=== PATIENT | female | born 1955 | race Caucasian/White ===

== ENCOUNTER 2016-07-26 13:38 | Emergency (ER) | payer MEDICARE, OTHER ==
[~2016-07-26] VITALS: Ht 163.8 cm; Wt 87.7 kg
[2016-07-26] VITALS (7 sets, daily range): BP systolic 120–158; BP diastolic 62–89; PULSE 72–94; RESP 16–20; TEMP 98.6; O2SAT 93–98
[~2016-07-26 13:38] MED LIST: CHOL50006 PO; FOLI400T30 PO; FURO20 PO; IPRAAER NEB; LEVA750T PO; LISI-363 PO; LORA0.5T PO; MIRA33502 PO; MOME17I; NORC10TA2 PO; PRED10PA PO; PRIL40CA PO; PROM25SU8 PO; SYMB80AE INH; Z.0.OXYGEN INH; ZOCO40TA PO
[2016-07-26] MEDS ORDERED: VITA100064 PO (15:46)
[2016-07-26] MEDS ORDERED: PRED10 PO (15:46)
[2016-07-26] MEDS ORDERED: FURO20TA PO (15:46)
[2016-07-26] MEDS ORDERED: SYMB80AE INH (15:46)
[2016-07-26] MEDS ORDERED: ZOCO40TA PO (15:46)
[2016-07-26] MEDS ORDERED: ALBU0.63 NEB (15:46)
[2016-07-26] MEDS ORDERED: LISI10TA3 PO (15:46)
[2016-07-26] MEDS ORDERED: FOLI5CAP PO (15:46)
[2016-07-26] MEDS ORDERED: SODIUM CHLORIDE 0.9% FLUSH 5 ML FLUSH IVF PRN (16:15)
[2016-07-26] MEDS ORDERED: methylPREDNISolone SOD SUCC 125 MG/2 ML VIAL IVP ONE (16:15)
[2016-07-26 16:34] LABS: AUTOMATED NEUTROPHIL # 8.9 TH/MM3 (1.8-7.7); BASOPHIL # 0.1 TH/MM3 (0-0.2); BASOPHIL % 1.4 % (0.0-2.0); EOSINOPHIL % 0.2 % (0.0-4.0); LYMPH % 9.8 % (9.0-44.0); MEAN CELL VOLUME 89.3 FL (80.0-100.0); MEAN CORPUSCULAR HEMOGLOBIN 29.7 PG (27.0-34.0); MEAN CORPUSCULAR HGB CONC 33.3 % (32.0-36.0); MONO % 4.2 % (0.0-8.0); NEUT % 84.4 % (16.0-70.0); PLATELET COUNT 317 TH/MM3 (150-450); RED BLOOD COUNT 4.14 MIL/MM3 (4.00-5.30); RED CELL DISTRIBUTION WIDTH 12.9 % (11.6-17.2); WHITE BLOOD COUNT 10.4 TH/MM3 (4.0-11.0)
[2016-07-26 16:38] LABS: HEMO FLAGS DIFF FINAL
[2016-07-26 16:43] LABS: CHLORIDE 102 MEQ/L (98-107); POTASSIUM 4.2 MEQ/L (3.5-5.1); SODIUM (NA) 141 MEQ/L (136-145)
[2016-07-26 16:47] LABS: ANION GAP 6 MEQ/L (5-15); BICARBONATE 32.9 MEQ/L (21.0-32.0); BLOOD UREA NITROGEN 13 MG/DL (7-18)
[2016-07-26] MEDS: RESP: ALBUTEROL 2.5 MG/IPRATROPIUM 0.5 MG NEB (SCH) INH ×2 (16:47→16:48)
[2016-07-26 16:49] LABS: APTT (PATIENT) 24.7 SEC (24.3-30.1); INTERNATIONAL NORMALIZED RATIO 0.9 RATIO; PROTHROMBIN TIME - PATIENT 9.8 SEC (9.8-11.6)
[2016-07-26 16:50] LABS: ALT (GPT) 25 U/L (10-53); AST (GOT) 14 U/L (15-37); GLOMERULAR FILTRATION RATE 70 ML/MIN (>89)
[2016-07-26 16:52] LABS: TOTAL BILIRUBIN ADULT 0.5 MG/DL (0.2-1.0)
[2016-07-26 16:53] LABS: ALKALINE PHOSPHATASE 63 U/L (45-117)
--- NOTE | 2016-07-26 16:57 | RADHPO ---
EXAM DATE/TIME: 07/26/2016 16:32 [facility] COMPARISON: No previous studies available for comparison. INDICATIONS : Left lower extremity edema. MEDICAL HISTORY : Myocardial infarction. Hypertension. Chronic obstructive pulmonary disease. Migraine. Asthma. Arth ritis. GERD. Gallbladder disease. SURGICAL HISTORY : Carpal tunnel release. Right breast lumpectomy. ENCOUNTER: Initial ACUITY: >1 year PAIN SCORE: 0/10 LOCATION: Left leg. TECHNIQUE: Venous ultrasound of the leg was performed from the inguinal ligament to the proximal calf. Real-eusebia e, color Doppler and spectral tracing, compression and augmentation techniques were used. FINDINGS: There is normal compressibility of the deep venous system from the inguinal region to the proximal ca lf. No echogenic clot is seen in the lumen of the common femoral, femoral, popliteal, and posterior tibial veins. There is a normal response of the venous system to proximal and distal augmentation an d respiration. CONCLUSION: Normal examination. Toby Gomez MD on July 26, 2016 at 16:48 Board Certified Radiologist. This report was verified electronically.
--- NOTE | 2016-07-26 17:38 | RADHPO ---
EXAM DATE/TIME: 07/26/2016 16:18 [facility] COMPARISON: CHEST PA & LAT, April 06, 2016, 15:11. INDICATIONS : Shortness of breath. MEDICAL HISTORY : Hypercholesterolemia. Chronic obstructive pulmonary disease. Hypertension. SURGICAL HISTORY : None. ENCOUNTER: Initial ACUITY: 3 days PAIN SCORE: 2/10 LOCATION: Bilateral chest FINDINGS: PA and lateral views of the chest demonstrate the lungs to be symmetrically aerated without evidence of mass, infiltrate or effusion. The cardiomediastinal contours are unremarkable. Moderate accentuat ion of thoracic kyphosis and mild degenerative change in spine.. CONCLUSION: No acute cardiopulmonary disease. Merlin Colon MD on July 26, 2016 at 17:36 Board Certified Radiologist. This report was verified electronically.
[2016-07-26] MEDS ORDERED: oxyCODONE/ACETAMINOPHEN 5 MG/325 MG TAB PO ONE (18:00)
--- NOTE | 2016-07-26 18:27 | RADHPO ---
EXAM DATE/TIME: 07/26/2016 18:03 [facility] COMPARISON: No previous studies available for comparison. INDICATIONS : Patient states Left shoulder pain, no known trauma. MEDICAL HISTORY : None. SURGICAL HISTORY : None. ENCOUNTER: Initial ACUITY: 3 days PAIN SCORE: 4/10 LOCATION: Left Shoulder FINDINGS: Multiple view examination of the left shoulder demonstrates no evidence of fracture or dislocation. The glenohumeral and acromioclavicular joints are maintained. There is normal range of motion betwee n internal and external rotation. Bony mineralization is normal. CONCLUSION: Unremarkable examination of the left shoulder. Merlin Howard MD on July 26, 2016 at 18:25 Board Certified Radiologist. This report was verified electronically.
[2016-07-26] MEDS ORDERED: PRED50 PO (18:28)
--- NOTE | 2016-07-26 18:28 | PD ---
HPI Chief Complaint: Respiratory Symptoms Time Seen by Provider: 16:02 Travel History International Travel<30 days: No Contact w/Intl Traveler<30days: No Traveled to known affect area: No History of Present Illness HPI Patient is a 61-year-old female with history of COPD, on home oxygen, who comes in complaining of shortness of breath. She says a month ago she saw her mold sheet cleaner and was given an antibiotic, steroid taper, and says that she was feeling better. However for the past week she has had increased shortness of breath especially on walking, with coughing. She is concerned that she might have the flu or pneumonia. She has not any fevers at home. She does like she has some mucus stuck in her throat. In addition, she says that she has severe pain in her shoulder. She does not remember any injuries to the shoulder, but thinks that she might have strained it somehow. She does have a history of rheumatoid arthritis. She takes hydrocodone for pain at home. She denies any chest pain. She does complain of lower extremity swelling, which she says she has often. She says her left leg seems to be a little worse now, with pain periodically in that leg. PFSH Past Medical History Arthritis: Yes (DDD, "pinched nerves") Asthma: Yes Anxiety: No Depression: Yes (Hx) Heart Rhythm Problems: No Cancer: No Cardiac Catheterization: No Cardiovascular Problems: Yes (htn on meds but didnt take meds today) High Cholesterol: No Chemotherapy: No Chest Pain: Yes Congestive Heart Failure: No COPD: Yes Cerebrovascular Accident: No Diabetes: Yes (Borderline) Patient Takes Glucophage: No Diminished Hearing: No Endocrine: No Gastrointestinal Disorders: Yes GERD: Yes Genitourinary: No Hiatal Hernia: No Hypertension: Yes Immune Disorder: No Implanted Vascular Access Dvce: Yes Kidney Stones: No Musculoskeletal: Yes Neurologic: No Psychiatric: Yes Reproductive: No Respiratory: Yes (copd on oxygen) Immunizations Current: Yes Migraines: Yes (Hx) Pneumonia: Yes Radiation Therapy: No Renal Failure: No Sickle Cell Disease: No Sleep Apnea: No Thyroid Disease: No Ulcer: No ?: Not Menopausal: Yes Past Surgical History Abdominal Surgery: No AICD: No Arteriovenous Shunt: No Cardiac Surgery: No Coronary Artery Bypass Graft: No Ear Surgery: No Endocrine Surgery: No Eye Surgery: Yes (Cataract) Genitourinary Surgery: No Gynecologic Surgery: No Hysterectomy: Yes Insulin Pump: No Joint Replacement: No Oral Surgery: No Pacemaker: No Thoracic Surgery: No Other Surgery: Yes ((R) breast lumpectomy) Family History Family Myocardial Infarction: Yes Social History Alcohol Use: No Tobacco Use: No Substance Use: No Allergies-Medications (Allergen,Severity, Reaction): Coded Allergies: Codeine (Verified Allergy, Mild, RASH, 07/26/16) *MDRO Multi-Drug Resistant Organism (Verified Adverse Reaction, Unknown, ) 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 Reported Meds & Prescriptions Reported Meds & Active Scripts Active Prednisone 50 Mg Tab 50 Mg PO DAILY 4 Days Reported Furosemide 20 Mg Tab Unknown Dose PO DAILY Lisinopril 10 Mg Tab 10 Mg PO DAILY Folic Acid 5 Mg Cap Unknown Dose PO DAILY Vitamin D (Cholecalciferol) 1,000 Unit Tab 1,000 Units PO DAILY Symbicort Inh (Budesonide/Formoterol Fumarate) 80-4.5 Mcg/Act Aero 2 Puff INH Q12HR Albuterol Neb (Albuterol Sulfate) 0.63 Mg/3 Ml Neb 0.63 Mg NEB QID PRN Zocor (Simvastatin) 40 Mg Tab 40 Mg PO DAILY Prednisone 10 Mg Tab 10 Mg PO DAILY Review of Systems Except as stated in HPI: all other systems reviewed are Neg General / Constitutional: No: Fever, Chills HENT: No: Headaches, Lightheadedness Cardiovascular: No: Chest Pain or Discomfort Respiratory: Positive: Cough, Shortness of Breath Gastrointestinal: No: Nausea, Vomiting Genitourinary: No: Dysuria Musculoskeletal: Positive: Pain Skin: No Change in Pigmentation Neurologic: No: Weakness, Dizziness Physical Exam Narrative GENERAL: Awake and alert in no acute distress. SKIN: Warm and dry. HEAD: Atraumatic. Normocephalic. EYES: Pupils equal and round. No scleral icterus. ENT: Mucous membranes pink and moist. NECK: Trachea midline. No JVD. CARDIOVASCULAR: Regular rate and rhythm. No murmur appreciated. RESPIRATORY: No accessory muscle use. Clear to auscultation. Decreased breath sounds on the right. MUSCULOSKELETAL: No obvious deformities. No clubbing. No cyanosis. 1+ edema of the left lower extremity. Negative Homans sign. Pain with movement of the left shoulder. No bony tenderness. NEUROLOGICAL: Awake and alert. No obvious cranial nerve deficits. Motor grossly within normal limits. Normal speech. PSYCHIATRIC: Appropriate mood and affect; insight and judgment normal. Data Data Last Documented VS Vital Signs Date Time Temp Pulse Resp B/P Pulse Ox O2 Delivery O2 Flow Rate FiO2 07/26/16 18:23 76 20 136/73 97 07/26/16 16:51 Nasal Cannula 2.00 07/26/16 13:59 98.6 Orders Complete Blood Count With Diff (07/26/16 16:11) Comprehensive Metabolic Panel (07/26/16 16:11) B-Type Natriuretic Peptide (07/26/16 16:11) Act Partial Throm Time (Ptt) (07/26/16 16:11) Prothrombin Time / Inr (Pt) (07/26/16 16:11) Troponin I (07/26/16 16:11) Influenzae A/B Antigen (07/26/16 16:11) Iv Access Insert/Monitor (07/26/16 16:11) Electrocardiogram (07/26/16 16:11) Ecg Monitoring (07/26/16 16:11) Oximetry (07/26/16 16:11) Oxygen Administration (07/26/16 16:11) Chest, Pa & Lat (07/26/16 16:11) Us Leg Venous Doppler (07/26/16 16:11) Sodium Chloride 0.9% Flush (Ns Flush) (07/26/16 16:15) Methylprednisolone So Succ Inj (Solumedr (07/26/16 16:15) Albuterol-Ipratropium Neb (Duoneb Neb) (07/26/16 16:15) Shoulder, Complete (>2vws) (07/26/16 ) Oxycodone-Acetamin 5-325 Mg (Percocet (07/26/16 18:00) Labs Laboratory Tests Test 07/26/16 16:25 White Blood Count 10.4 TH/MM3 Red Blood Count 4.14 MIL/MM3 Hemoglobin 12.3 GM/DL Hematocrit 37.0 % Mean Corpuscular Volume 89.3 FL Mean Corpuscular Hemoglobin 29.7 PG Mean Corpuscular Hemoglobin 33.3 % Concent Red Cell Distribution Width 12.9 % Platelet Count 317 TH/MM3 Mean Platelet Volume 6.9 FL Neutrophils (%) (Auto) 84.4 % Lymphocytes (%) (Auto) 9.8 % Monocytes (%) (Auto) 4.2 % Eosinophils (%) (Auto) 0.2 % Basophils (%) (Auto) 1.4 % Neutrophils # (Auto) 8.9 TH/MM3 Lymphocytes # (Auto) 1.0 TH/MM3 Monocytes # (Auto) 0.4 TH/MM3 Eosinophils # (Auto) 0.0 TH/MM3 Basophils # (Auto) 0.1 TH/MM3 CBC Comment DIFF FINAL Differential Comment Prothrombin Time 9.8 SEC Prothromb Time International 0.9 RATIO Ratio Activated Partial 24.7 SEC Thromboplast Time Sodium Level 141 MEQ/L Potassium Level 4.2 MEQ/L Chloride Level 102 MEQ/L Carbon Dioxide Level 32.9 MEQ/L Anion Gap 6 MEQ/L Blood Urea Nitrogen 13 MG/DL Creatinine 0.83 MG/DL Estimat Glomerular Filtration 70 ML/MIN Rate Random Glucose 132 MG/DL Calcium Level 8.6 MG/DL Total Bilirubin 0.5 MG/DL Aspartate Amino Transf 14 U/L (AST/SGOT) Alanine Aminotransferase 25 U/L (ALT/SGPT) Alkaline Phosphatase 63 U/L Troponin I LESS THAN 0.02 NG/ML B-Type Natriuretic Peptide 28 PG/ML Total Protein 7.0 GM/DL Albumin 3.4 GM/DL [facility] Medical Decision Making Medical Screen Exam Complete: Yes Emergency Medical Condition: Yes Medical Record Reviewed: Yes Interpretation(s) ECG shows sinus rhythm at 62, no ST elevation or depression. Differential Diagnosis COPD exacerbation versus pneumonia versus influenza versus bronchitis versus CHF Narrative Course Patient is a 61-year-old female comes in complaining of shortness of breath as well as left shoulder pain and leg swelling. Exam shows decreased breath sounds on the right, swelling of the left leg. IV established, patient connected to color television console monitor. Labs sent show no acute abnormalities. Influenza testing is negative. Chest x-ray performed shows no signs of pneumonia or cardiomegaly or edema. Doppler performed on the left lower extremity, no evidence of DVT seen. Patient given 3 duo nebs as well as 125 mg of Solu-Medrol with improvement of her symptoms. Given Percocet for shoulder pain. Sure of the shoulder shows no acute abnormalities. Will be discharged home with steroid burst. Patient advised to follow-up with her mold sheet cleaner as soon as possible. Advised to return to the ED as needed for any worsening symptoms. Patient is comfortable with discharge at this time. Diagnosis Primary Impression: Chronic obstructive pulmonary disease Qualified Code: J44.1 - Chronic obstructive pulmonary disease with acute exacerbation Patient Instructions: COPD (Chronic Obstructive Pulmonary Disease) (ED), General Instructions Additional Instructions: Follow up with your mold sheet cleaner as soon as possible. Return to the ED as needed for any worsening symptoms. Scripts Prednisone 50 Mg Tab50 Mg PO DAILY 4 Days Ref 0 Prov:Kristin Caldwell MD 07/26/16 Disposition: 01 DISCHARGE HOME Condition: Stable Kristin Caldwell MD Jul 26, 2016 18:28
--- NOTE | 2016-07-27 14:24 | EKG ---
Date Performed: 07/26/2016 Time Performed: 16:16:04 PTAGE: 61 years EKG: Sinus rhythm Normal ECG PREVIOUS TRACING : 04/06/2016 15.06 Since previous tracing, no significant change noted DOCTOR: Johanny Ramirez Interpretating Date/Time 07/27/2016 14:21:19
[2016-11-06] MEDS ORDERED: FOLI800T PO (14:10)
[2016-11-06] MEDS ORDERED: CHOL100028 PO (14:10)
[2016-11-06] MEDS ORDERED: BIOT1SUB SL (14:10)
[2016-11-06] MEDS ORDERED: FURO40TA PO (14:10)
[2016-11-06] MEDS ORDERED: CIPR-9 PO (14:30)
[2016-11-13] MEDS ORDERED: OMEP40CA2 PO (14:50)
[2016-11-13] MEDS ORDERED: LISI-515 PO (14:50)
[2016-11-13] MEDS ORDERED: PROM12.54 PO (14:50)
[2016-11-13] MEDS ORDERED: CETI10 PO (14:50)
== END 2016-07-26 18:56 | disposition home or self-care (01) ==
LOC: PHED 13:38
DX: J44.1 Chronic obstructive pulmonary disease with (acute) exacerbation (principal); J45.909 Unspecified asthma, uncomplicated; M25.512 Pain in left shoulder; I10 Essential (primary) hypertension; Z99.81 Dependence on supplemental oxygen; M79.605 Pain in left leg
CPT/HCPCS: 71020; 73030; 80053; 83880; 84484; 85025; 85610; 85730; 87804; 93005; 93971; 94640; 94664; 96374; 99285; J2930

== ENCOUNTER 2016-08-27 18:40 | Inpatient (IN) | payer MEDICARE, OTHER ==
[~2016-08-27] VITALS: Ht 162.6 cm; Wt 89.9 kg
[~2016-08-27 18:40] MED LIST changes: +ALBU0.63 NEB; -CHOL50006 PO; -FOLI400T30 PO; +FOLI5CAP PO; -FURO20 PO; +FURO20TA PO; -IPRAAER NEB; -LEVA750T PO; -LISI-363 PO; +LISI10TA3 PO; -LORA0.5T PO; -MIRA33502 PO; -MOME17I; -NORC10TA2 PO; +PRED10 PO; -PRED10PA PO; +PRED50 PO; -PRIL40CA PO; -PROM25SU8 PO; +VITA100064 PO; -Z.0.OXYGEN INH
[2016-08-27 18:50] VITALS: BP 140/102; PULSE 98; RESP 18; TEMP 98.5; O2SAT 92
[2016-08-27] MEDS ORDERED: LEFL1TAB3 PO (23:07)
[2016-08-27 23:08] VITALS: BP 168/81; PULSE 76; RESP 18; O2SAT 98
[2016-08-27 23:13] VITALS: O2SAT 97
[2016-08-27] MEDS ORDERED: RESP: ALBUTEROL 2.5 MG/IPRATROPIUM 0.5 MG NEB (SCH) NEB ONE (23:15)
[2016-08-27] MEDS ORDERED: VANCOMYCIN INJ 1,000 MG in SODIUM CHLOR 0.9% 250 ML INJ 250 ML IV ONE (23:15)
--- NOTE | 2016-08-27 23:33 | PD ---
HPI Chief Complaint: Skin Problem Time Seen by Provider: 23:04 Travel History International Travel<30 days: No Contact w/Intl Traveler<30days: No Traveled to known affect area: No History of Present Illness HPI 61-year-old female presents to the emergency department for complaint of redness swelling and warmth of the right lower extremity. Patient reports 7 days ago she sustained a skin tear to the right lower leg from one of her shoes. Patient states she has attempted to keep the site clean and dry but noticed increasing redness and swelling and tenderness to the area without purulent drainage. Patient contacted her managing physician who stated that she needed to go to the hospital to be admitted to the hospital for IV antibiotics. Patient's tetanus status is current. Patient has COPD and takes prednisone on a frequent basis. Patient is borderline diabetic. Patient does not report fever or chills. Pain at worst 8/10 intensity. PFSH Past Medical History Narrative Medical COPD arthritis hypertension and borderline diabetes GERD migraines eye surgery hysterectomy breast lumpectomy; no tobacco use; nursing notes reviewed Arthritis: Yes (DDD, "pinched nerves") Asthma: Yes Anxiety: No Depression: Yes (Hx) Heart Rhythm Problems: No Cancer: No Cardiac Catheterization: No Cardiovascular Problems: Yes (htn on meds but didnt take meds today) High Cholesterol: No Chemotherapy: No Chest Pain: Yes Congestive Heart Failure: No COPD: Yes Cerebrovascular Accident: No Diabetes: Yes (Borderline) Patient Takes Glucophage: No Diminished Hearing: No Endocrine: No Gastrointestinal Disorders: Yes GERD: Yes Genitourinary: No Hiatal Hernia: No Heparin Induced Thrombocytopen: No Hypertension: Yes Immune Disorder: No Implanted Vascular Access Dvce: Yes Kidney Stones: No Musculoskeletal: Yes Neurologic: No Psychiatric: Yes Reproductive: No Respiratory: Yes (COPD on cont. O2) Immunizations Current: Yes Migraines: Yes (Hx) Pneumonia: Yes Radiation Therapy: No Renal Failure: No Sickle Cell Disease: No Sleep Apnea: No Thyroid Disease: No Ulcer: No Tetanus Vaccination: < 5 Years Influenza Vaccination: Yes ?: Not Menopausal: Yes Past Surgical History Abdominal Surgery: No AICD: No Arteriovenous Shunt: No Cardiac Surgery: No Coronary Artery Bypass Graft: No Ear Surgery: No Endocrine Surgery: No Eye Surgery: Yes (Cataract) Genitourinary Surgery: No Gynecologic Surgery: No Hysterectomy: Yes Insulin Pump: No Joint Replacement: No Neurologic Surgery: No Oral Surgery: No Pacemaker: No Thoracic Surgery: No Other Surgery: Yes ((R) breast lumpectomy) Family History Family Myocardial Infarction: Yes Social History Alcohol Use: No Tobacco Use: No Substance Use: No Allergies-Medications (Allergen,Severity, Reaction): Coded Allergies: Codeine (Verified Allergy, Mild, RASH, 08/27/16) *MDRO Multi-Drug Resistant Organism (Verified Adverse Reaction, Unknown, ) 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 Reported Meds & Prescriptions Reported Meds & Active Scripts Active Reported [place] (Hydrocodone-Acetaminophen) 10-325 Mg Tab 1 Tab PO Q6H PRN Leflunomide 20 Mg Tab 20 Mg PO DAILY Furosemide 20 Mg Tab Unknown Dose PO DAILY Lisinopril 10 Mg Tab 10 Mg PO DAILY Folic Acid 5 Mg Cap Unknown Dose PO DAILY Vitamin D (Cholecalciferol) 1,000 Unit Tab 1,000 Units PO DAILY Symbicort Inh (Budesonide/Formoterol Fumarate) 80-4.5 Mcg/Act Aero 2 Puff INH Q12HR Albuterol Neb (Albuterol Sulfate) 0.63 Mg/3 Ml Neb 0.63 Mg NEB QID PRN Zocor (Simvastatin) 40 Mg Tab 40 Mg PO DAILY Prednisone 10 Mg Tab 10 Mg PO DAILY Review of Systems Except as stated in HPI: all other systems reviewed are Neg General / Constitutional: No: Fever, Chills HENT: No: Congestion Cardiovascular: No: Chest Pain or Discomfort Respiratory: No: Shortness of Breath Gastrointestinal: No: Nausea, Vomiting Genitourinary: No: Dysuria Musculoskeletal: Positive: Edema, Pain, No: Myalgias, Arthralgias Neurologic: No: Weakness Psychiatric: No: Anxiety Endocrine: No: Heat Intolerance Hematologic/Lymphatic: Positive: Easy Bruising (prednisone) Physical Exam Narrative GENERAL: Well-developed well-nourished female in no acute distress SKIN: Warm and dry. HEAD: Normocephalic. EYES: No scleral icterus. No injection or drainage. NECK: Supple, trachea midline. No JVD or lymphadenopathy. CARDIOVASCULAR: Regular rate and rhythm without murmurs, gallops, or rubs. RESPIRATORY: Breath sounds equal bilaterally with expiratory wheeze. No accessory muscle use. GASTROINTESTINAL: Abdomen soft, non-tender, nondistended. MUSCULOSKELETAL: No cyanosis, or edema. Attention right lower leg with erythema and focal edema anterior [place] skin tear with scab in place no purulent drainage no fluctuance increased warmth tenderness to palpation no posterior calf tenderness dorsalis pedis pulse 1+ to palpation capillary refill brisk and less than 2 seconds per digit no ascending erythema or groin lymphadenopathy. BACK: Nontender without obvious deformity. No CVA tenderness. Data Data Last Documented VS Vital Signs Date Time Temp Pulse Resp B/P Pulse Ox O2 Delivery O2 Flow Rate FiO2 08/28/16 01:00 78 18 154/78 97 08/27/16 23:13 Nasal Cannula 2.00 08/27/16 18:50 98.5 Orders Basic Metabolic Panel (Bmp) (08/27/16 23:04) Complete Blood Count With Diff (08/27/16 23:04) Blood Culture (08/27/16 23:04) Iv Access Insert/Monitor (08/27/16 23:04) Vancomycin Inj (Vancomycin Inj) (08/27/16 23:15) Albuterol-Ipratropium Neb (Duoneb Neb) (08/27/16 23:15) Tibia/Fibula (Ap/Lat) (08/27/16 ) Lactic Acid (08/27/16 23:04) Potassium Chloride (Kcl) (08/28/16 01:00) Acetamin-Hydrocod 325-10 Mg ([place] 10-32 (08/28/16 01:00) Admit Order (Ed Use Only) (08/28/16 ) ^ Saline Lock (08/28/16 01:30) Resp Oxygen Danny C Titrat 1-4 L (08/28/16 ) ^ Notify Dr: Other (08/28/16 01:30) Sodium Chloride 0.9% Flush (Ns Flush) (08/28/16 09:00) Sodium Chloride 0.9% Flush (Ns Flush) (08/28/16 01:30) Labs Laboratory Tests Test 08/28/16 00:00 White Blood Count 9.0 TH/MM3 Red Blood Count 4.95 MIL/MM3 Hemoglobin 14.1 GM/DL Hematocrit 43.5 % Mean Corpuscular Volume 87.8 FL Mean Corpuscular Hemoglobin 28.4 PG Mean Corpuscular Hemoglobin 32.3 % Concent Red Cell Distribution Width 13.6 % Platelet Count 352 TH/MM3 Mean Platelet Volume 7.8 FL Neutrophils (%) (Auto) 65.7 % Lymphocytes (%) (Auto) 18.3 % Monocytes (%) (Auto) 11.0 % Eosinophils (%) (Auto) 0.8 % Basophils (%) (Auto) 4.2 % Neutrophils # (Auto) 5.9 TH/MM3 Lymphocytes # (Auto) 1.6 TH/MM3 Monocytes # (Auto) 1.0 TH/MM3 Eosinophils # (Auto) 0.1 TH/MM3 Basophils # (Auto) 0.4 TH/MM3 CBC Comment DIFF FINAL Differential Comment Sodium Level 141 MEQ/L Potassium Level 3.0 MEQ/L Chloride Level 98 MEQ/L Carbon Dioxide Level 34.5 MEQ/L Anion Gap 9 MEQ/L Blood Urea Nitrogen 11 MG/DL Creatinine 0.84 MG/DL Estimat Glomerular Filtration 69 ML/MIN Rate Random Glucose 106 MG/DL Lactic Acid Level 0.9 mmol/L Calcium Level 8.9 MG/DL [facility]DM Medical Decision Making Medical Screen Exam Complete: Yes Emergency Medical Condition: Yes Medical Record Reviewed: Yes Interpretation(s) Lactic acid 0.9, not elevated CBC is automated differential values grossly normal range Metabolic panel remarkable for hypokalemia Last Impressions Tibia/Fibula X-Ray 08/27/16 0000 Signed Impressions: Service Date/Time: Saturday, August 27, 2016 23:15 - CONCLUSION: No acute disease. Lucien Lakhani MD Differential Diagnosis Cellulitis osteomyelitis retained foreign body exacerbation COPD sepsis Narrative Course Patient administered updraft treatment IV access obtained specimens collected and sent for resulting vancomycin administered after blood cultures obtained Patient sent to the emergency department by her primary care provider for IV antibiotics and admission Patient doing well stable after updraft treatment we'll discuss with on-call provider for observation admission Physician Communication Physician Communication discussed with Samuel Mena PA-C admit to PCP/Dr Lopez's service Diagnosis Primary Impression: Cellulitis of right lower extremity Admitting Information Admitting Physician Requests: Observation Conchis Love MD Aug 27, 2016 23:33
--- NOTE | 2016-08-27 23:35 | RADHPO ---
EXAM DATE/TIME: 08/27/2016 23:15 [facility] COMPARISON: No previous studies available for comparison. INDICATIONS : Right lower leg pain and swelling from unknown injury. MEDICAL HISTORY : Myocardial infarction. Hypertension. Chronic obstructive pulmonary disease. SURGICAL HISTORY : None. ENCOUNTER: Initial ACUITY: 1 week PAIN SCORE: 8/10 LOCATION: Right lower leg FINDINGS: Two view examination of the right tibia demonstrates no evidence of fracture or dislocation. Bony mi neralization is normal. The soft tissue structures are intact. CONCLUSION: No acute disease. Lucien Lakhani MD on August 27, 2016 at 23:33 Board Certified Radiologist. This report was verified electronically.
[2016-08-28] VITALS (10 sets, daily range): BP systolic 107–154; BP diastolic 51–89; PULSE 63–78; RESP 15–20; TEMP 96.8–98.2; O2SAT 94–99
[2016-08-28 00:30] LABS: AUTOMATED NEUTROPHIL # 5.9 TH/MM3 (1.8-7.7); BASOPHIL # 0.4 TH/MM3 (0-0.2); BASOPHIL % 4.2 % (0.0-2.0); BICARBONATE 34.5 MEQ/L (21.0-32.0); EOSINOPHIL # 0.1 TH/MM3 (0-0.4); EOSINOPHIL % 0.8 % (0.0-4.0); HEMATOCRIT 43.5 % (35.0-46.0); HEMO FLAGS DIFF FINAL; LYMPH % 18.3 % (9.0-44.0); LYMPHOCYTE # 1.6 TH/MM3 (1.0-4.8); MEAN CELL VOLUME 87.8 FL (80.0-100.0); MEAN CORPUSCULAR HEMOGLOBIN 28.4 PG (27.0-34.0); MEAN CORPUSCULAR HGB CONC 32.3 % (32.0-36.0); NEUT % 65.7 % (16.0-70.0); PLATELET COUNT 352 TH/MM3 (150-450); RED BLOOD COUNT 4.95 MIL/MM3 (4.00-5.30); RED CELL DISTRIBUTION WIDTH 13.6 % (11.6-17.2)
[2016-08-28] MEDS ORDERED: POTASSIUM CHLORIDE 20 MEQ CONTROLLED RELEASE TAB PO ONE (01:00)
[2016-08-28] MEDS ORDERED: ACETAMINOPHEN/HYDROcodone 325 MG/10 MG TAB PO ONE (01:00)
[2016-08-28] MEDS ORDERED: SODIUM CHLORIDE 0.9% FLUSH 5 ML FLUSH IVF PRN (01:30)
[2016-08-28] MEDS ORDERED: NALOXONE HCL 0.4 MG/ML AMP IV PRN (02:15)
[2016-08-28] MEDS ORDERED: ACETAMINOPHEN 325 MG TAB PO PRN (02:15)
[2016-08-28] MEDS ORDERED: Vancomycin Consult Pharmacy 1 EA OTHER SCH (02:15)
[2016-08-28] MEDS: SODIUM CHLOR 0.9% 1000 ML INJ 1,000 ML IV SCH ×2 (03:01→16:29)
[2016-08-28] MEDS: ENOXAPARIN SODIUM 40 MG/0.4 ML SYRINGE SQ SCH (03:01)
[2016-08-28 06:28] LABS: POTASSIUM 3.4 MEQ/L (3.5-5.1)
[2016-08-28 07:24] LABS: BICARBONATE 33.1 MEQ/L (21.0-32.0)
[2016-08-28] MEDS ORDERED: HYDR-3366 PO (07:32)
[2016-08-28] MEDS: ACETAMINOPHEN/HYDROcodone 325 MG/10 MG TAB PO PRN ×3 (08:43→20:59)
[2016-08-28] MEDS ORDERED: SODIUM CHLORIDE 0.9% FLUSH 5 ML FLUSH IVF SCH (09:00)
[2016-08-28] MEDS: SODIUM CHLORIDE 0.9% FLUSH 5 ML FLUSH FLUSH SCH ×2 (09:00→20:59)
[2016-08-28] MEDS ORDERED: ACETAMINOPHEN/HYDROcodone 325 MG/10 MG TAB PO PRN (10:15)
[2016-08-28] MEDS: RESP: ALBUTEROL 2.5 MG/IPRATROPIUM 0.5 MG NEB (SCH) NEB ×3 (10:33→21:32)
--- NOTE | 2016-08-28 10:36 | MH ---
cc: HOME LEONARD MD DATE OF ADMISSION 08/28/2016 CHIEF COMPLAINT Redness, swelling and pain on the right lower extremity. HISTORY OF PRESENT ILLNESS This is a 61-year-old female with a past medical and surgical history significant for COPD, arthritis, hypertension, borderline diabetes mellitus, gastroesophageal reflux disease, migraine, severe COPD, hysterectomy, breast lumpectomy, sleep apnea, acid reflux, who came to my office and had redness and swelling of the right lower extremity and was sent to [facility] for IV antibiotics. The patient stated that this has been going on for the last six to seven days. She sustained a skin tear to the right lower extremity from her shoes and then she attempted to keep the site clean and dry, but noticed increasing redness and swelling and pain without purulent discharge. The patient is saying the pain is throbbing 4-5/10 with no radiation. It is worse with walking and other than that nothing significant. PAST MEDICAL-SURGICAL HISTORY As dictated above. SOCIAL HISTORY She denies smoking, drinking and taking any drugs. She is on disability. She lives at home. She is a former smoker. She smoked from [id number]. ALLERGIES NO KNOWN DRUG ALLERGIES. FAMILY HISTORY Significant for mother who had esophageal cancer. Father also had cancer, unknown type and brother has liver damage, cirrhosis of the liver. Grandmother has COPD. ALLERGIES CODEINE MEDICATIONS Includes: 1. DuoNeb nebulization q6h 2. Lortab 10 mg p.o. daily 3. Colace 100 mg p.o. daily 4. Cyanocobalamin 500 mcg p.o. daily 5. Folic acid 400 microgram p.o. daily 6. Furosemide 20 mg p.o. daily 7. Lortab 10/325 q6 hours p.r.n. pain 8. Lisinopril 20 mg p.o. daily 9. Lorazepam 0.5 mg twice a day 10. Nasonex one spray each nostril daily 11. Omeprazole 40 mg p.o. daily 12. Symbicort 80/4.5 two puffs inhalation [id number] 13. Zocor 40 mg p.o. daily 14. Prednisone 10 mg p.o. daily 15. Leflunomide 20 mg p.o. daily REVIEW OF SYSTEMS Positive for redness of the right lower extremity, swelling and pain and also mild short of breath. All other review of systems are negative. PHYSICAL EXAMINATION This is a 61-year female laying on the bed not in acute distress. VITAL SIGNS: Temperature 97.7, heart rate 63, respiration 16, blood pressure 123/63, O2 saturation 97% on two liters nasal cannula. HEENT: Normocephalic, atraumatic. EOMI. PERRL. Oral mucosa moist. NECK: Supple. No visible thyromegaly or neck mass. Trachea central. CARDIOVASCULAR: Regular rate and rhythm. Respirations revealed bilateral wheezing and decreased air entry bilaterally. ABDOMEN: Soft, nontender. Bowel sounds audible. EXTREMITIES: She shows right lower extremity redness, erythema, swelling and wound on the right [place] area with a skin flap on and no calf tenderness. Full range of motion of all extremities. NEUROLOGIC: Awake, alert, oriented x4. No focal deficits. SKIN: Shows erythema and wound on the right lower extremity. PSYCH: The patient is cooperative. Mood and affect is normal. LABORATORY DATA Include CBC is totally unremarkable except mono is 11.0 high, basophil is 4.2 high. BMP totally unremarkable except for potassium 3.4 low, carbon dioxide 33.1 high, GFR 88 low, glucose random 112, calcium 7.9 low. Blood cultures x2 done negative so far. X-ray of the right the tibia-fibula done shows no acute disease. ASSESSMENT/PLAN 1. This is a 61-year female who came to the ER diagnosed with a known cellulitis of the right lower extremity. The patient started on vancomycin and I will also start the patient on Levaquin 500 mg IV daily. Consulted infectious disease doctor. Further recommendation per ID. 2. History of severe COPD. Continue home medication. The patient is oxygen dependent at home. Continue the home medications. 3. History of arthritis. Continue home medications. 4. History of hypertension. Continue home medication. We will monitor blood pressure. 5. History of a borderline diabetes. We will monitor blood sugar. 6. History of hyperlipidemia. Continue with Zocor. 7. History of GERD. Continue with Protonix. 8. History of migraine headache. Continue the home medication. 9. History of depression. Continue home medication. 10. DVT prophylaxis heparin 5000 units subcutaneous twice a day. 11. GI prophylaxis Protonix 40 mg p.o. daily. 12. We are going to manage the patient on a daily basis and make recommendation on a daily basis. MD FRANCOISE Soto /10:07 AM /10:24 AM
[2016-08-28] MEDS ORDERED: LEFLUNOMIDE 20 MG TAB PO SCH (11:00)
[2016-08-28] MEDS: BUDESONIDE-FORMOTEROL 80/4.5 MCG INHALER INH SCH ×2 (11:17→21:00)
[2016-08-28] MEDS: LEVOFLOXACIN 500 MG PREMIX INJ 100 ML IV SCH (11:18)
[2016-08-28] MEDS: CHOLECALCIFEROL (VIT D3) 1000 UNIT TAB PO SCH (11:19)
[2016-08-28] MEDS: predniSONE 10 MG TAB PO SCH (11:19)
[2016-08-28] MEDS: LISINOPRIL 10 MG TAB PO SCH (11:20)
[2016-08-28] MEDS: PRAVASTATIN SOD 80 MG TAB PO SCH (11:20)
[2016-08-28] MEDS ORDERED: VANCOMYCIN INJ 1,000 MG in SODIUM CHLOR 0.9% 250 ML INJ 250 ML IV SCH (12:00)
[2016-08-28] MEDS: LEFLUNOMIDE 20 MG TAB PO SCH (16:28)
--- NOTE | 2016-08-28 18:58 | PD.ID.CON ---
History of Present Illness Service ID Consult Requested By Dr oLpez Reason for Consult RLE cellulitis Primary Care Physician Koby Lopez MD Diagnoses: History of Present Illness 61 yo obese female with obesety presented with RLE pain redness and swelling for 6-7 days Pt presented to [facility] Pt was starte on abx (levaquine, vancmycin) She is afebrile and has normal WBC Her blood clx are pending She states signigficant improvement in pain and redness as well as swelling Review of Systems Respiratory: COMPLAINS OF: Shortness of breath Other As per history of present illness, th rest of 12 point review is negative Past Family Social History Allergies: Coded Allergies: Codeine (Verified Allergy, Mild, RASH, 08/27/16) *MDRO Multi-Drug Resistant Organism (Verified Adverse Reaction, Unknown, ) 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 Social History No Tobacco. No ETOH. No Illicit Drugs. Physical Exam Vital Signs Vital Signs Date Time Temp Pulse Resp B/P Pulse Ox O2 Delivery O2 Flow Rate FiO2 08/28/16 16:41 98.2 78 15 134/75 98 08/28/16 15:41 20 08/28/16 15:25 107/51 08/28/16 11:54 98.0 75 16 112/58 95 Nasal Cannula 2 08/28/16 10:35 97 Nasal Cannula 2.50 08/28/16 07:10 63 16 08/28/16 07:10 97.7 63 18 123/63 97 Nasal Cannula 2 08/28/16 05:09 67 18 120/72 99 08/28/16 03:04 75 18 131/69 98 08/28/16 01:00 78 18 154/78 97 08/27/16 23:13 97 Nasal Cannula 2.00 08/27/16 23:08 76 20 08/27/16 23:08 76 18 168/81 98 Nasal Cannula 2.5 Physical Exam CONSTITUTIONAL/GENERAL: This is an obese patient, in no apparent distress. TUBES/LINES/DRAINS: SKIN: No jaundice, rashes, or lesions. Ecchymoses on upper extremities. No wounds seen anteriorly. Skin temperature appropriate. Not diaphoretic. HEAD: Atraumatic. Normocephalic. EYES: Pupils equal and round and reactive. Extraocular motions intact. No scleral icterus. No injection or drainage. Fundi not examined. ENT: Hearing grossly normal. Nose without bleeding or purulent drainage. Throat without visible erythema, exudates, masses, or lesions. NECK: Trachea midline. Supple, nontender. CARDIOVASCULAR: Regular rate and rhythm without murmurs, gallops, or rubs. No JVD. Peripheral pulses symmetric. RESPIRATORY/CHEST: Symmetric, unlabored respirations. Clear to auscultation. Breath sounds equal bilaterally. No wheezes, rales, or rhonchi. GASTROINTESTINAL: Abdomen soft, non-tender, nondistended. No hepato-splenomegaly , or palpable masses. No guarding. Bowel sounds present. GENITOURINARY: Without palpable bladder distension. MUSCULOSKELETAL: Extremities without clubbing, cyanosis, + soft 1+ edema more prominent RLE Also few scattered brusises A tringle shaped lac present on the R [place] surrounded by erythema about 10-12 sm some fine wrinkling is present No fluctuance or crepitus Mild dark bloody dry dc on the dressing No joint tenderness or effusion noted. No calf tenderness. No mottling or clubbing. LYMPHATICS: No palpable cervical or supraclavicular adenopathy. No inguinal lymphadenopathy. NEUROLOGICAL: Awake and alert. Motor and sensory grossly within normal limits. Follows commands. Normal speech. Moves all extremities. PSYCHIATRIC: No obvious anxiety/depression. no apparent hallucinations or other psychotic thought process. Laboratory Laboratory Tests Test 08/28/16 08/28/16 00:00 06:15 White Blood Count 9.0 Red Blood Count 4.95 Hemoglobin 14.1 Hematocrit 43.5 Mean Corpuscular Volume 87.8 Mean Corpuscular Hemoglobin 28.4 Mean Corpuscular Hemoglobin 32.3 Concent Red Cell Distribution Width 13.6 Platelet Count 352 Mean Platelet Volume 7.8 Neutrophils (%) (Auto) 65.7 Lymphocytes (%) (Auto) 18.3 Monocytes (%) (Auto) 11.0 Eosinophils (%) (Auto) 0.8 Basophils (%) (Auto) 4.2 Neutrophils # (Auto) 5.9 Lymphocytes # (Auto) 1.6 Monocytes # (Auto) 1.0 Eosinophils # (Auto) 0.1 Basophils # (Auto) 0.4 CBC Comment DIFF FINAL Differential Comment Sodium Level 141 142 Potassium Level 3.0 3.4 Chloride Level 98 103 Carbon Dioxide Level 34.5 33.1 Anion Gap 9 6 Blood Urea Nitrogen 11 10 Creatinine 0.84 0.68 Estimat Glomerular Filtration 69 88 Rate Random Glucose 106 112 Lactic Acid Level 0.9 Calcium Level 8.9 7.9 Date/Time Procedure Status Source Growth 08/28/16 00:05 Aerobic Blood Culture Received Blood Peripheral Pending 08/28/16 00:05 Anaerobic Blood Culture Received Blood Peripheral Pending Result Diagram: 08/28/16 0000 08/28/16 0615 Imaging Last Impressions Tibia/Fibula X-Ray 08/27/16 0000 Signed Impressions: Service Date/Time: Saturday, August 27, 2016 23:15 - CONCLUSION: No acute disease. Lucien Lakhani MD Assessment and Plan Assessment and Plan RLE cellulitis, improving Port of entry -m minor skin trauma Chronic prednisone use 2/2 COPD Remote h/o tonbacco (quit 10 yrs ago) cont levaquine , vanco for now anticipate traqnsition to oral abx in 1-3 days if cont to mprove Alicja Oliva MD Aug 28, 2016 18:58
[2016-08-29] VITALS (7 sets, daily range): BP systolic 122–135; BP diastolic 67–83; PULSE 78–99; RESP 17–20; TEMP 96.7–98.1; O2SAT 94–98
[2016-08-29] MEDS: VANCOMYCIN INJ 1,250 MG in SODIUM CHLOR 0.9% 250 ML INJ 250 ML IV SCH ×2 (00:33→13:26)
[2016-08-29] MEDS: ENOXAPARIN SODIUM 40 MG/0.4 ML SYRINGE SQ SCH (03:05)
[2016-08-29] MEDS: ACETAMINOPHEN/HYDROcodone 325 MG/10 MG TAB PO PRN ×4 (03:10→23:02)
[2016-08-29] MEDS: RESP: ALBUTEROL 2.5 MG/IPRATROPIUM 0.5 MG NEB (SCH) NEB ×4 (03:12→19:31)
[2016-08-29] MEDS: SODIUM CHLOR 0.9% 1000 ML INJ 1,000 ML IV SCH (06:20)
[2016-08-29 06:41] LABS: CHLORIDE 107 MEQ/L (98-107); POTASSIUM 3.5 MEQ/L (3.5-5.1); SODIUM (NA) 145 MEQ/L (136-145)
[2016-08-29 06:42] LABS: AUTOMATED NEUTROPHIL # 3.9 TH/MM3 (1.8-7.7); BASOPHIL # 0.1 TH/MM3 (0-0.2); BASOPHIL % 0.9 % (0.0-2.0); EOSINOPHIL # 0.1 TH/MM3 (0-0.4); EOSINOPHIL % 1.3 % (0.0-4.0); HEMATOCRIT 32.5 % (35.0-46.0); HEMO FLAGS DIFF FINAL; LYMPH % 22.7 % (9.0-44.0); LYMPHOCYTE # 1.4 TH/MM3 (1.0-4.8); MEAN CELL VOLUME 88.8 FL (80.0-100.0); MEAN CORPUSCULAR HGB CONC 32.6 % (32.0-36.0); MONO % 12.4 % (0.0-8.0); NEUT % 62.7 % (16.0-70.0); PLATELET COUNT 255 TH/MM3 (150-450); RED BLOOD COUNT 3.66 MIL/MM3 (4.00-5.30); WHITE BLOOD COUNT 6.3 TH/MM3 (4.0-11.0)
[2016-08-29 06:47] LABS: ANION GAP 6 MEQ/L (5-15); BICARBONATE 31.8 MEQ/L (21.0-32.0); BLOOD UREA NITROGEN 11 MG/DL (7-18)
[2016-08-29 06:50] LABS: AST (GOT) 12 U/L (15-37); GLOMERULAR FILTRATION RATE 88 ML/MIN (>89)
[2016-08-29 06:52] LABS: TOTAL BILIRUBIN ADULT 0.4 MG/DL (0.2-1.0)
[2016-08-29 06:53] LABS: ALKALINE PHOSPHATASE 57 U/L (45-117)
[2016-08-29 06:56] LABS: ALT (GPT) 20 U/L (10-53)
--- NOTE | 2016-08-29 08:10 | HHI.PR ---
Subjective History of Present Illness Patient feel better redness of right lower extremity better infectious disease input noted DC IV fluids. d/w NIKHIL Negron at bed side. Review of Systems Constitutional Constitutional: Fatigue, Weakness Integumentary Skin Remarks redness/swelling right lower extremity. Vitals/Results Intake & Output 08/28/16 08/28/16 08/29/16 15:00 23:00 07:00 Intake Total 600 ml 1800 ml 1228 ml Balance 600 ml 1800 ml 1228 ml Intake Oral 500 ml 480 ml 480 ml IV Total 100 ml 1320 ml 748 ml # Voids 2 1 # Bowel Movements 1 0 Vital Signs Vital Signs Date Time Temp Pulse Resp B/P Pulse Ox O2 Delivery O2 Flow Rate FiO2 08/29/16 08:00 98.0 99 18 130/68 95 08/29/16 00:00 96.7 86 20 135/75 94 08/28/16 21:30 94 Nasal Cannula 2.50 08/28/16 20:00 96.8 77 20 119/89 95 08/28/16 16:41 98.2 78 15 134/75 98 08/28/16 15:41 20 08/28/16 15:25 107/51 08/28/16 11:54 98.0 75 16 112/58 95 Nasal Cannula 2 08/28/16 10:35 97 Nasal Cannula 2.50 CBC/BMP: 08/29/16 0612 08/29/16 0612 Lab Results Laboratory Tests Test 08/29/16 06:12 White Blood Count 6.3 TH/MM3 Red Blood Count 3.66 MIL/MM3 Hemoglobin 10.6 GM/DL Hematocrit 32.5 % Mean Corpuscular Volume 88.8 FL Mean Corpuscular Hemoglobin 29.0 PG Mean Corpuscular Hemoglobin 32.6 % Concent Red Cell Distribution Width 14.0 % Platelet Count 255 TH/MM3 Mean Platelet Volume 7.2 FL Neutrophils (%) (Auto) 62.7 % Lymphocytes (%) (Auto) 22.7 % Monocytes (%) (Auto) 12.4 % Eosinophils (%) (Auto) 1.3 % Basophils (%) (Auto) 0.9 % Neutrophils # (Auto) 3.9 TH/MM3 Lymphocytes # (Auto) 1.4 TH/MM3 Monocytes # (Auto) 0.8 TH/MM3 Eosinophils # (Auto) 0.1 TH/MM3 Basophils # (Auto) 0.1 TH/MM3 CBC Comment DIFF FINAL Differential Comment Sodium Level 145 MEQ/L Potassium Level 3.5 MEQ/L Chloride Level 107 MEQ/L Carbon Dioxide Level 31.8 MEQ/L Anion Gap 6 MEQ/L Blood Urea Nitrogen 11 MG/DL Creatinine 0.68 MG/DL Estimat Glomerular Filtration 88 ML/MIN Rate Random Glucose 106 MG/DL Calcium Level 8.0 MG/DL Total Bilirubin 0.4 MG/DL Aspartate Amino Transf 12 U/L (AST/SGOT) Alanine Aminotransferase 20 U/L (ALT/SGPT) Alkaline Phosphatase 57 U/L Total Protein 5.8 GM/DL Albumin 2.7 GM/DL Physical Exam General General Appearance: No Acute Distress, Comfortable Eyes Eye Exam: Pupils Equal, Pupils Reactive, Sclera White, Extraocular Movement Intact Throat Throat Exam: Oral Mucosa [place] & Moist, Oral Pharynx Normal Neck Neck Exam: Neck Supple, Trachea Midline Pulmonary Resp Exam: Rhonchi, Decreased Bases Resp Remarks Bilateral mild wheezing. Cardiology CV Exam: Regular, Normal Sinus Rhythm, Good Perfusion Gastrointestinal/Abdomen GI Exam: Soft, Non-Tender, Bowel Sounds Present Musculoskeletal MS Exam: Normal Tone Integumentary Skin Remarks erythema /swelling right lower extremity. no calf tenderness. Extremeties Extremities Exam: Trace Edema Neurologic Neuro Exam: Alert, Awake, Oriented, Speech Clear, No Focal Deficits Psychiatric Psych Exam: Appropriate Responses VTE Prophylaxis VTE Prophylaxis Meds: Heparin PUD Prophylasis PUD Prophylaxis: Protonix Assessment/Plan Assessment/Plan ASSESSMENT/PLAN 1. This is a 61-year female who came to the ER diagnosed with a known cellulitis of the right lower extremity. The patient on vancomycin and Levaquin 500 mg IV daily. infectious disease input noted agree with antibiotic.. Further recommendation per ID. 2. History of severe COPD. Continue home medication. The patient is oxygen dependent at home. Continue the home medications. 3. History of arthritis. Continue home medications. 4. History of hypertension. Continue home medication. We will monitor blood pressure. 5. History of a borderline diabetes. We will monitor blood sugar. 6. History of hyperlipidemia. Continue with Zocor. 7. History of GERD. Continue with Protonix. 8. History of migraine headache. Continue the home medication. 9. History of depression. Continue home medication. 10. DVT prophylaxis heparin 5000 units subcutaneous twice a day. 11. GI prophylaxis Protonix 40 mg p.o. daily. 12. We are going to manage the patient on a daily basis and make recommendation on a daily basis. Check CBC with diff CMP in AM. Discussed Condition with: Patient Koby Lopez MD Aug 29, 2016 08:10
[2016-08-29] MEDS: SODIUM CHLORIDE 0.9% FLUSH 5 ML FLUSH FLUSH SCH ×2 (09:00→21:26)
[2016-08-29] MEDS ORDERED: RESP: ALBUTEROL 2.5 MG/IPRATROPIUM 0.5 MG NEB (SCH) ONE (09:00)
[2016-08-29] MEDS: PRAVASTATIN SOD 80 MG TAB PO SCH (09:18)
[2016-08-29] MEDS: LISINOPRIL 10 MG TAB PO SCH (09:19)
[2016-08-29] MEDS: CHOLECALCIFEROL (VIT D3) 1000 UNIT TAB PO SCH (09:19)
[2016-08-29] MEDS: predniSONE 10 MG TAB PO SCH (09:19)
[2016-08-29] MEDS: BUDESONIDE-FORMOTEROL 80/4.5 MCG INHALER INH SCH ×2 (09:20→21:25)
[2016-08-29] MEDS: LEFLUNOMIDE 20 MG TAB PO SCH (10:23)
[2016-08-29] MEDS: LEVOFLOXACIN 500 MG PREMIX INJ 100 ML IV SCH (10:24)
--- NOTE | 2016-08-29 11:16 | RADHPO ---
EXAM DATE/TIME: 08/29/2016 10:43 [place] COMPARISON: No previous studies available for comparison. INDICATIONS : Bilateral leg swelling. MEDICAL HISTORY : Hypertension. Myocardial infarction. Chronic obstructive pulmonary disease. Migraines. Dyspnea. Arthr itis. MRSA, nares 01/11/16. SURGICAL HISTORY : Cataract removal. Carpal tunnel release. Right breast lumpectomy. ENCOUNTER: Subsequent ACUITY: 1 day PAIN SCORE: 0/10 LOCATION: Bilateral legs. TECHNIQUE: Venous ultrasound of the left and right leg was performed from the inguinal ligament to the proximal calf. Real-time, color Doppler and spectral tracing, compression and augmentation techniques were us ed. FINDINGS: RIGHT LEG: There is normal compressibility of the deep venous system from the inguinal region to the proximal ca lf. No echogenic clot is seen in the lumen of the common femoral, femoral, popliteal, and posterior tibial veins. There is a normal response of the venous system to proximal and distal augmentation an d respiration. LEFT LEG: There is normal compressibility of the deep venous system from the inguinal region to the proximal ca lf. No echogenic clot is seen in the lumen of the common femoral, femoral, popliteal, and posterior tibial veins. There is a normal response of the venous system to proximal and distal augmentation an d respiration. CONCLUSION: No evidence of deep venous thrombosis within the lower extremities. Levi Jarquin MD on August 29, 2016 at 11:14 Board Certified Radiologist. This report was verified electronically.
[2016-08-29] MEDS ORDERED: PHARMACY ORDERED LAB XX ONE (12:45)
[2016-08-30] VITALS (8 sets, daily range): BP systolic 116–146; BP diastolic 63–81; PULSE 64–88; RESP 18–20; TEMP 96.8–97.7; O2SAT 93–99
[2016-08-30] MEDS: ENOXAPARIN SODIUM 40 MG/0.4 ML SYRINGE SQ SCH (01:27)
[2016-08-30] MEDS: VANCOMYCIN INJ 1,250 MG in SODIUM CHLOR 0.9% 250 ML INJ 250 ML IV SCH ×2 (01:27→12:18)
[2016-08-30] MEDS: ACETAMINOPHEN/HYDROcodone 325 MG/10 MG TAB PO PRN ×3 (06:02→20:20)
[2016-08-30] MEDS: RESP: ALBUTEROL 0.63 MG/3 ML NEB (PRN) NEB (06:04)
[2016-08-30] MEDS: RESP: ALBUTEROL 2.5 MG/IPRATROPIUM 0.5 MG NEB (SCH) NEB ×4 (07:50→19:43)
[2016-08-30] MEDS: PRAVASTATIN SOD 80 MG TAB PO SCH (08:07)
[2016-08-30] MEDS: CHOLECALCIFEROL (VIT D3) 1000 UNIT TAB PO SCH (08:07)
[2016-08-30] MEDS: predniSONE 10 MG TAB PO SCH (08:08)
[2016-08-30] MEDS: BUDESONIDE-FORMOTEROL 80/4.5 MCG INHALER INH SCH ×2 (08:08→20:17)
[2016-08-30] MEDS: LEFLUNOMIDE 20 MG TAB PO SCH (08:08)
[2016-08-30] MEDS: LISINOPRIL 10 MG TAB PO SCH (08:08)
[2016-08-30] MEDS: SODIUM CHLORIDE 0.9% FLUSH 5 ML FLUSH FLUSH SCH ×2 (08:09→20:17)
--- NOTE | 2016-08-30 08:11 | HHI.PR ---
Subjective History of Present Illness Patient feel better redness of right lower extremity better infectious disease input noted . d/w NIKHIL Estes. Venous doppler negative for DVT. Review of Systems Constitutional Constitutional: Fatigue, Weakness Integumentary Skin Remarks redness/swelling right lower extremity. Vitals/Results Intake & Output 08/29/16 08/29/16 08/30/16 15:00 23:00 07:00 Intake Total 1010 ml 400 ml 1070 ml Balance 1010 ml 400 ml 1070 ml Intake Oral 1010 ml 400 ml 800 ml IV Total 270 ml # Voids 1 2 3 # Bowel Movements 0 0 Vital Signs Vital Signs Date Time Temp Pulse Resp B/P Pulse Ox O2 Delivery O2 Flow Rate FiO2 08/30/16 07:57 97.7 64 20 128/70 93 08/30/16 07:53 95 Nasal Cannula 2.00 08/30/16 07:02 10 08/30/16 07:00 Nasal Cannula 2.50 Humidified 08/30/16 00:00 96.8 72 18 123/70 97 08/29/16 20:00 96 Nasal Cannula 2.50 Humidified 08/29/16 20:00 97.6 78 20 124/67 96 08/29/16 19:30 96 Nasal Cannula 2.50 08/29/16 16:00 98.1 90 17 122/83 95 08/29/16 12:00 97.8 96 18 128/71 94 08/29/16 09:06 98 Nasal Cannula 2.50 CBC/BMP: 08/29/16 0612 08/29/16 0612 Lab Results Laboratory Tests Test 08/29/16 11:48 Vancomycin Level Trough 11.6 MCG/ML Physical Exam General General Appearance: Well Developed, Well Nourished, No Acute Distress, Comfortable Eyes Eye Exam: Pupils Equal, Pupils Reactive, Sclera White, Extraocular Movement Intact Throat Throat Exam: Oral Mucosa [place] & Moist, Oral Pharynx Normal Neck Neck Exam: Neck Supple, Trachea Midline Pulmonary Resp Exam: Rhonchi, Decreased Bases Resp Remarks Bilateral mild wheezing. Cardiology CV Exam: Regular, Normal Sinus Rhythm, Good Perfusion Gastrointestinal/Abdomen GI Exam: Soft, Non-Tender, Bowel Sounds Present Musculoskeletal MS Exam: Normal Tone Integumentary Skin Remarks erythema /swelling right lower extremity. no calf tenderness. Extremeties Extremities Exam: Pitting Edema Neurologic Neuro Exam: Alert, Awake, Oriented, Speech Clear, Moving All Extremities, No Focal Deficits Psychiatric Psych Exam: Appropriate Responses VTE Prophylaxis VTE Prophylaxis Meds: Heparin PUD Prophylasis PUD Prophylaxis: Protonix Assessment/Plan Assessment/Plan ASSESSMENT/PLAN 1. This is a 61-year female who came to the ER diagnosed with a cellulitis of the right lower extremity. Venous doppler negative for DVT. The patient on vancomycin and Levaquin 500 mg IV daily. infectious disease input noted agree with antibiotic.. Further recommendation per ID. 2. History of severe COPD. Continue home medication. The patient is oxygen dependent at home. Continue the home medications. 3. History of arthritis. Continue home medications. 4. History of hypertension. Continue home medication. We will monitor blood pressure. 5. History of a borderline diabetes. We will monitor blood sugar. 6. History of hyperlipidemia. Continue with Zocor. 7. History of GERD. Continue with Protonix. 8. History of migraine headache. Continue the home medication. 9. History of depression. Continue home medication. 10. DVT prophylaxis heparin 5000 units subcutaneous twice a day. 11. GI prophylaxis Protonix 40 mg p.o. daily. 12. We are going to manage the patient on a daily basis and make recommendation on a daily basis. Check CBC with diff CMP in AM. Discussed Condition with: Patient Koby Lopez MD Aug 30, 2016 08:11
[2016-08-30] MEDS: FUROSEMIDE 40 MG/4 ML VIAL IV PUSH SCH ×2 (09:24→17:39)
[2016-08-30] MEDS: LEVOFLOXACIN 500 MG PREMIX INJ 100 ML IV SCH (10:33)
[2016-08-31] VITALS (7 sets, daily range): BP systolic 94–155; BP diastolic 69–79; PULSE 57–91; RESP 18–20; TEMP 97.1–98.1; O2SAT 95–97
[2016-08-31] MEDS: RESP: ALBUTEROL 0.63 MG/3 ML NEB (PRN) NEB (00:05)
[2016-08-31] MEDS: ACETAMINOPHEN/HYDROcodone 325 MG/10 MG TAB PO PRN ×4 (02:33→21:17)
[2016-08-31] MEDS: ENOXAPARIN SODIUM 40 MG/0.4 ML SYRINGE SQ SCH (02:33)
[2016-08-31] MEDS: VANCOMYCIN INJ 1,250 MG in SODIUM CHLOR 0.9% 250 ML INJ 250 ML IV SCH ×2 (02:33→12:44)
[2016-08-31] MEDS: SODIUM CHLORIDE 0.9% FLUSH 5 ML FLUSH FLUSH PRN (02:33)
--- NOTE | 2016-08-31 06:53 | HHI.PR ---
Subjective History of Present Illness Patient feel better redness of right lower extremity better infectious disease input noted . . Venous doppler negative for DVT. Review of Systems Constitutional Constitutional: Fatigue, Weakness Integumentary Skin Remarks redness/swelling right lower extremity. Vitals/Results Intake & Output 08/30/16 08/30/16 08/31/16 15:00 23:00 07:00 Intake Total 1170 ml 1070 ml 720 ml Balance 1170 ml 1070 ml 720 ml Intake Oral 1170 ml 1070 ml 720 ml # Voids 7 5 4 # Bowel Movements 1 0 0 Vital Signs Vital Signs Date Time Temp Pulse Resp B/P Pulse Ox O2 Delivery O2 Flow Rate FiO2 08/31/16 00:00 97.1 74 18 112/73 95 08/30/16 20:00 97.4 88 18 116/81 99 08/30/16 19:44 96 Nasal Cannula 2.00 08/30/16 19:00 95 Nasal Cannula 2.50 08/30/16 16:00 97.2 80 20 132/71 96 08/30/16 13:41 18 08/30/16 12:00 97.2 80 20 146/78 96 08/30/16 09:15 81 18 123/63 08/30/16 07:57 97.7 64 20 128/70 93 08/30/16 07:53 95 Nasal Cannula 2.00 08/30/16 07:00 Nasal Cannula 2.50 Humidified CBC/BMP: 08/29/16 0612 08/29/16 0612 Physical Exam General General Appearance: Well Developed, Well Nourished, No Acute Distress, Comfortable Eyes Eye Exam: Pupils Equal, Pupils Reactive, Sclera White, Extraocular Movement Intact Throat Throat Exam: Oral Mucosa [place] & Moist, Oral Pharynx Normal Neck Neck Exam: Neck Supple, Trachea Midline Pulmonary Resp Exam: Rhonchi, Decreased Bases Resp Remarks Bilateral mild wheezing. Cardiology CV Exam: Regular, Normal Sinus Rhythm, Good Perfusion Gastrointestinal/Abdomen GI Exam: Soft, Non-Tender, Bowel Sounds Present Musculoskeletal MS Exam: Normal Tone Integumentary Skin Remarks erythema /swelling right lower extremity. no calf tenderness. Extremeties Extremities Exam: Pitting Edema Neurologic Neuro Exam: Alert, Awake, Oriented, Speech Clear, Moving All Extremities, No Focal Deficits Psychiatric Psych Exam: Appropriate Responses VTE Prophylaxis VTE Prophylaxis Meds: Heparin PUD Prophylasis PUD Prophylaxis: Protonix Assessment/Plan Assessment/Plan ASSESSMENT/PLAN 1. This is a 61-year female who came to the ER diagnosed with a cellulitis of the right lower extremity. Venous doppler negative for DVT. The patient on vancomycin and Levaquin 500 mg IV daily. infectious disease input noted agree with antibiotic.. Further recommendation per ID. 2. History of severe COPD. Continue home medication. The patient is oxygen dependent at home. Continue the home medications. 3. History of arthritis. Continue home medications. 4. History of hypertension. Continue home medication. We will monitor blood pressure. 5. History of a borderline diabetes. We will monitor blood sugar. 6. History of hyperlipidemia. Continue with Zocor. 7. History of GERD. Continue with Protonix. 8. History of migraine headache. Continue the home medication. 9. History of depression. Continue home medication. 10. DVT prophylaxis heparin 5000 units subcutaneous twice a day. 11. GI prophylaxis Protonix 40 mg p.o. daily. 12. We are going to manage the patient on a daily basis and make recommendation on a daily basis. Check CBC with diff CMP in AM. Discussed Condition with: Patient Koby Lopez MD Aug 31, 2016 06:53
[2016-08-31 07:27] LABS: AUTOMATED NEUTROPHIL # 3.9 TH/MM3 (1.8-7.7); BASOPHIL # 0.1 TH/MM3 (0-0.2); BASOPHIL % 0.9 % (0.0-2.0); EOSINOPHIL # 0.1 TH/MM3 (0-0.4); EOSINOPHIL % 1.6 % (0.0-4.0); HEMATOCRIT 34.4 % (35.0-46.0); HEMO FLAGS DIFF FINAL; LYMPH % 22.6 % (9.0-44.0); LYMPHOCYTE # 1.5 TH/MM3 (1.0-4.8); MEAN CELL VOLUME 88.9 FL (80.0-100.0); MEAN CORPUSCULAR HGB CONC 32.6 % (32.0-36.0); MONO % 13.1 % (0.0-8.0); NEUT % 61.8 % (16.0-70.0); PLATELET COUNT 295 TH/MM3 (150-450); RED BLOOD COUNT 3.87 MIL/MM3 (4.00-5.30); RED CELL DISTRIBUTION WIDTH 13.8 % (11.6-17.2); WHITE BLOOD COUNT 6.5 TH/MM3 (4.0-11.0)
[2016-08-31 07:35] LABS: CHLORIDE 104 MEQ/L (98-107); SODIUM (NA) 145 MEQ/L (136-145)
[2016-08-31] MEDS: RESP: ALBUTEROL 2.5 MG/IPRATROPIUM 0.5 MG NEB (SCH) NEB ×4 (07:40→19:20)
[2016-08-31 07:42] LABS: ANION GAP 7 MEQ/L (5-15); BICARBONATE 33.9 MEQ/L (21.0-32.0); BLOOD UREA NITROGEN 10 MG/DL (7-18)
[2016-08-31 07:45] LABS: ALT (GPT) 26 U/L (10-53); AST (GOT) 20 U/L (15-37); GLOMERULAR FILTRATION RATE 86 ML/MIN (>89)
[2016-08-31 07:46] LABS: TOTAL BILIRUBIN ADULT 0.5 MG/DL (0.2-1.0)
[2016-08-31 07:48] LABS: ALKALINE PHOSPHATASE 60 U/L (45-117)
[2016-08-31] MEDS: LISINOPRIL 10 MG TAB PO SCH (08:43)
[2016-08-31] MEDS: CHOLECALCIFEROL (VIT D3) 1000 UNIT TAB PO SCH (08:43)
[2016-08-31] MEDS: SODIUM CHLORIDE 0.9% FLUSH 5 ML FLUSH FLUSH SCH ×2 (08:44→21:19)
[2016-08-31] MEDS: predniSONE 10 MG TAB PO SCH (08:44)
[2016-08-31] MEDS: FUROSEMIDE 40 MG/4 ML VIAL IV PUSH SCH ×2 (08:44→16:56)
[2016-08-31] MEDS: PRAVASTATIN SOD 80 MG TAB PO SCH (08:44)
[2016-08-31] MEDS: BUDESONIDE-FORMOTEROL 80/4.5 MCG INHALER INH SCH ×2 (08:44→21:19)
[2016-08-31] MEDS: LEFLUNOMIDE 20 MG TAB PO SCH (08:44)
[2016-08-31] MEDS: LEVOFLOXACIN 500 MG PREMIX INJ 100 ML IV SCH (12:43)
[2016-08-31] MEDS: ONDANSETRON HCL 4 MG/2 ML VIAL IVP PRN (16:56)
--- NOTE | 2016-08-31 23:21 | HHI.IDPN ---
Subjective Subjective Remarks afebrile cont ot co SOB RLE swelling redness and pain improved Antibiotics vanco levaquin Allergies: Coded Allergies: Codeine (Verified Allergy, Mild, RASH, 08/27/16) *MDRO Multi-Drug Resistant Organism (Verified Adverse Reaction, Unknown, ) MRSA PCR (nares) POSITIVE - 01/11/16 Objective . Vital Signs Date Time Temp Pulse Resp B/P Pulse Ox O2 Delivery O2 Flow Rate FiO2 08/31/16 20:00 98.1 91 20 143/69 95 08/31/16 19:20 97 Nasal Cannula 2.00 08/31/16 19:00 97 Nasal Cannula 2.00 08/31/16 16:00 97.1 60 18 126/70 96 08/31/16 12:00 97.8 78 19 106/79 96 08/31/16 08:00 98.0 75 18 94/75 95 08/31/16 07:39 96 Nasal Cannula 2.50 08/31/16 07:00 Nasal Cannula 2.50 Humidified 08/31/16 00:00 97.1 74 18 112/73 95 08/30/16 08/30/16 08/31/16 15:00 23:00 07:00 Intake Total 1170 ml 1070 ml 720 ml Balance 1170 ml 1070 ml 720 ml Intake Oral 1170 ml 1070 ml 720 ml # Voids 7 5 4 # Bowel Movements 1 0 0 . Laboratory Tests Test 08/31/16 07:00 White Blood Count 6.5 TH/MM3 Red Blood Count 3.87 MIL/MM3 Hemoglobin 11.2 GM/DL Hematocrit 34.4 % Mean Corpuscular Volume 88.9 FL Mean Corpuscular Hemoglobin 29.0 PG Mean Corpuscular Hemoglobin 32.6 % Concent Red Cell Distribution Width 13.8 % Platelet Count 295 TH/MM3 Mean Platelet Volume 7.1 FL Neutrophils (%) (Auto) 61.8 % Lymphocytes (%) (Auto) 22.6 % Monocytes (%) (Auto) 13.1 % Eosinophils (%) (Auto) 1.6 % Basophils (%) (Auto) 0.9 % Neutrophils # (Auto) 3.9 TH/MM3 Lymphocytes # (Auto) 1.5 TH/MM3 Monocytes # (Auto) 0.9 TH/MM3 Eosinophils # (Auto) 0.1 TH/MM3 Basophils # (Auto) 0.1 TH/MM3 CBC Comment DIFF FINAL Differential Comment Laboratory Tests Test 08/31/16 07:00 Sodium Level 145 MEQ/L Potassium Level 3.0 MEQ/L Chloride Level 104 MEQ/L Carbon Dioxide Level 33.9 MEQ/L Anion Gap 7 MEQ/L Blood Urea Nitrogen 10 MG/DL Creatinine 0.69 MG/DL Estimat Glomerular Filtration 86 ML/MIN Rate Random Glucose 101 MG/DL Calcium Level 8.3 MG/DL Total Bilirubin 0.5 MG/DL Aspartate Amino Transf 20 U/L (AST/SGOT) Alanine Aminotransferase 26 U/L (ALT/SGPT) Alkaline Phosphatase 60 U/L Total Protein 6.2 GM/DL Albumin 2.8 GM/DL Imaging Last Impressions Lower Extremity Ultrasound 08/29/16 0000 Signed Impressions: Service Date/Time: Monday, August 29, 2016 10:43 - CONCLUSION: No evidence of deep venous thrombosis within the lower extremities. Levi Jarquin MD Tibia/Fibula X-Ray 08/27/16 0000 Signed Impressions: Service Date/Time: Saturday, August 27, 2016 23:15 - CONCLUSION: No acute disease. Lucien Lakhani MD Physical Exam CONSTITUTIONAL/GENERAL: This is an obese patient, in no apparent distress. TUBES/LINES/DRAINS: SKIN: No jaundice, rashes, or lesions. Skin temperature appropriate. Not diaphoretic. HEAD: Atraumatic. Normocephalic. EYES: Pupils equal and round and reactive. Extraocular motions intact. No scleral icterus. No injection or drainage. Fundi not examined. CARDIOVASCULAR: Regular rate and rhythm without murmurs, gallops, or rubs. No JVD. Peripheral pulses symmetric. RESPIRATORY/CHEST: Symmetric, unlabored respirations. Clear to auscultation. Breath sounds equal bilaterally. No wheezes, rales, or rhonchi. GASTROINTESTINAL: Abdomen soft, non-tender, nondistended. No hepato-splenomegaly , or palpable masses. No guarding. Bowel sounds present. MUSCULOSKELETAL: Extremities without clubbing, cyanosis, improved edema and erythema RLE RLE not tender to papation R [place] looks smaller, less tender some fine wrinkling is present No fluctuance or crepitus Mild dark bloody dry dc on the dressing No joint tenderness or effusion noted. No calf tenderness. No mottling or clubbing. NEUROLOGICAL: Awake and alert. Non focal Assessment & Plan Remarks RLE cellulitis, improving blood clx remain negative so far Port of entry -m minor skin trauma Chronic prednisone use 2/2 COPD Remote h/o tonbacco (quit 10 yrs ago) cont levaquine , vanco for now OK to transition to oral abx : keflex 500 qid, doxycycline 100 bid to complete 14 day course Alicja Oliva MD Aug 31, 2016 23:21
[2016-09-01] VITALS (9 sets, daily range): BP systolic 109–127; BP diastolic 59–78; PULSE 64–111; RESP 16–20; TEMP 97–98.6; O2SAT 74–99
[2016-09-01] MEDS: SODIUM CHLORIDE 0.9% FLUSH 5 ML FLUSH FLUSH PRN ×3 (02:47→17:05)
[2016-09-01] MEDS: ENOXAPARIN SODIUM 40 MG/0.4 ML SYRINGE SQ SCH (02:47)
[2016-09-01] MEDS: VANCOMYCIN INJ 1,250 MG in SODIUM CHLOR 0.9% 250 ML INJ 250 ML IV SCH ×2 (02:47→13:00)
[2016-09-01] MEDS: ACETAMINOPHEN/HYDROcodone 325 MG/10 MG TAB PO PRN ×4 (02:50→20:44)
[2016-09-01 06:55] LABS: BASOPHIL # 0.1 TH/MM3 (0-0.2); BASOPHIL % 0.9 % (0.0-2.0); EOSINOPHIL # 0.1 TH/MM3 (0-0.4); EOSINOPHIL % 1.5 % (0.0-4.0); HEMATOCRIT 34.3 % (35.0-46.0); HEMO FLAGS DIFF FINAL; LYMPH % 21.8 % (9.0-44.0); LYMPHOCYTE # 1.4 TH/MM3 (1.0-4.8); MEAN CELL VOLUME 88.6 FL (80.0-100.0); MEAN CORPUSCULAR HEMOGLOBIN 29.4 PG (27.0-34.0); MEAN CORPUSCULAR HGB CONC 33.1 % (32.0-36.0); MONO % 13.5 % (0.0-8.0); NEUT % 62.3 % (16.0-70.0); PLATELET COUNT 277 TH/MM3 (150-450); RED BLOOD COUNT 3.87 MIL/MM3 (4.00-5.30); RED CELL DISTRIBUTION WIDTH 13.8 % (11.6-17.2); WHITE BLOOD COUNT 6.5 TH/MM3 (4.0-11.0)
[2016-09-01 07:21] LABS: CHLORIDE 104 MEQ/L (98-107); POTASSIUM 3.5 MEQ/L (3.5-5.1); SODIUM (NA) 145 MEQ/L (136-145)
[2016-09-01 07:26] LABS: ANION GAP 7 MEQ/L (5-15); BICARBONATE 34.3 MEQ/L (21.0-32.0)
[2016-09-01 07:27] LABS: BLOOD UREA NITROGEN 11 MG/DL (7-18)
[2016-09-01 07:31] LABS: ALT (GPT) 27 U/L (10-53); AST (GOT) 21 U/L (15-37); GLOMERULAR FILTRATION RATE 82 ML/MIN (>89)
[2016-09-01 07:33] LABS: ALKALINE PHOSPHATASE 57 U/L (45-117)
[2016-09-01 07:35] LABS: TOTAL BILIRUBIN ADULT 0.6 MG/DL (0.2-1.0)
[2016-09-01] MEDS: RESP: ALBUTEROL 2.5 MG/IPRATROPIUM 0.5 MG NEB (SCH) NEB ×4 (07:58→20:15)
[2016-09-01] MEDS: LEFLUNOMIDE 20 MG TAB PO SCH (08:46)
[2016-09-01] MEDS: PRAVASTATIN SOD 80 MG TAB PO SCH (08:46)
[2016-09-01] MEDS: predniSONE 10 MG TAB PO SCH (08:46)
[2016-09-01] MEDS: LISINOPRIL 10 MG TAB PO SCH (08:46)
[2016-09-01] MEDS: CHOLECALCIFEROL (VIT D3) 1000 UNIT TAB PO SCH (08:47)
[2016-09-01] MEDS: FUROSEMIDE 40 MG/4 ML VIAL IV PUSH SCH ×2 (08:47→17:04)
[2016-09-01] MEDS: BUDESONIDE-FORMOTEROL 80/4.5 MCG INHALER INH SCH ×2 (08:47→20:44)
[2016-09-01] MEDS: SODIUM CHLORIDE 0.9% FLUSH 5 ML FLUSH FLUSH SCH ×2 (08:48→20:43)
--- NOTE | 2016-09-01 08:49 | HHI.PR ---
Subjective History of Present Illness Patient feel better redness of right lower extremity better infectious disease input noted . Review of Systems Constitutional Constitutional: Fatigue, Weakness Integumentary Skin Remarks redness/swelling right lower extremity. Vitals/Results Intake & Output 08/31/16 08/31/16 09/01/16 15:00 23:00 07:00 Intake Total 240 ml Balance 240 ml Intake Oral 240 ml # Voids 2 Vital Signs Vital Signs Date Time Temp Pulse Resp B/P Pulse Ox O2 Delivery O2 Flow Rate FiO2 09/01/16 08:01 94 Nasal Cannula 2.00 09/01/16 07:00 Nasal Cannula 2.00 09/01/16 04:00 97.0 64 20 111/59 94 09/01/16 00:00 98.6 79 20 114/64 74 08/31/16 20:00 98.1 91 20 143/69 95 08/31/16 19:20 97 Nasal Cannula 2.00 08/31/16 19:00 97 Nasal Cannula 2.00 08/31/16 16:00 97.1 60 18 126/70 96 08/31/16 12:00 97.8 78 19 106/79 96 CBC/BMP: 09/01/16 0622 09/01/16 0622 Lab Results Laboratory Tests Test 09/01/16 06:22 White Blood Count 6.5 TH/MM3 Red Blood Count 3.87 MIL/MM3 Hemoglobin 11.4 GM/DL Hematocrit 34.3 % Mean Corpuscular Volume 88.6 FL Mean Corpuscular Hemoglobin 29.4 PG Mean Corpuscular Hemoglobin 33.1 % Concent Red Cell Distribution Width 13.8 % Platelet Count 277 TH/MM3 Mean Platelet Volume 7.2 FL Neutrophils (%) (Auto) 62.3 % Lymphocytes (%) (Auto) 21.8 % Monocytes (%) (Auto) 13.5 % Eosinophils (%) (Auto) 1.5 % Basophils (%) (Auto) 0.9 % Neutrophils # (Auto) 4.0 TH/MM3 Lymphocytes # (Auto) 1.4 TH/MM3 Monocytes # (Auto) 0.9 TH/MM3 Eosinophils # (Auto) 0.1 TH/MM3 Basophils # (Auto) 0.1 TH/MM3 CBC Comment DIFF FINAL Differential Comment Sodium Level 145 MEQ/L Potassium Level 3.5 MEQ/L Chloride Level 104 MEQ/L Carbon Dioxide Level 34.3 MEQ/L Anion Gap 7 MEQ/L Blood Urea Nitrogen 11 MG/DL Creatinine 0.72 MG/DL Estimat Glomerular Filtration 82 ML/MIN Rate Random Glucose 104 MG/DL Calcium Level 8.4 MG/DL Total Bilirubin 0.6 MG/DL Aspartate Amino Transf 21 U/L (AST/SGOT) Alanine Aminotransferase 27 U/L (ALT/SGPT) Alkaline Phosphatase 57 U/L Total Protein 6.0 GM/DL Albumin 2.6 GM/DL Physical Exam General General Appearance: Well Developed, Well Nourished, No Acute Distress, Comfortable Eyes Eye Exam: Pupils Equal, Pupils Reactive, Sclera White, Extraocular Movement Intact Throat Throat Exam: Oral Mucosa [place] & Moist, Oral Pharynx Normal Neck Neck Exam: Neck Supple, Trachea Midline Pulmonary Resp Exam: Rhonchi, Decreased Bases Resp Remarks Bilateral mild wheezing. Cardiology CV Exam: Regular, Normal Sinus Rhythm, Good Perfusion Gastrointestinal/Abdomen GI Exam: Soft, Non-Tender, Bowel Sounds Present Musculoskeletal MS Exam: Normal Tone Integumentary Skin Remarks erythema /swelling right lower extremity. no calf tenderness. Extremeties Extremities Exam: Pitting Edema Neurologic Neuro Exam: Alert, Awake, Oriented, Speech Clear, Moving All Extremities, No Focal Deficits Psychiatric Psych Exam: Appropriate Responses VTE Prophylaxis VTE Prophylaxis Meds: Heparin PUD Prophylasis PUD Prophylaxis: Protonix Assessment/Plan Assessment/Plan ASSESSMENT/PLAN 1. This is a 61-year female who came to the ER diagnosed with a cellulitis of the right lower extremity. Venous doppler negative for DVT. The patient on vancomycin and Levaquin 500 mg IV daily. Improving. infectious disease input noted agree with antibiotic.. Further recommendation per ID. 2. History of severe COPD. Continue home medication. The patient is oxygen dependent at home. Continue the home medications. 3. History of arthritis. Continue home medications. 4. History of hypertension. Continue home medication. We will monitor blood pressure. 5. History of a borderline diabetes. We will monitor blood sugar. 6. History of hyperlipidemia. Continue with Zocor. 7. History of GERD. Continue with Protonix. 8. History of migraine headache. Continue the home medication. 9. History of depression. Continue home medication. 10. DVT prophylaxis heparin 5000 units subcutaneous twice a day. 11. GI prophylaxis Protonix 40 mg p.o. daily. 12. We are going to manage the patient on a daily basis and make recommendation on a daily basis. Check CBC with diff CMP in AM. Discussed Condition with: Patient Koby Lopez MD Sep 01, 2016 08:49
[2016-09-01] MEDS: LEVOFLOXACIN 500 MG PREMIX INJ 100 ML IV SCH (11:46)
[2016-09-01] MEDS: SENNOSIDES 8.6 MG TAB PO PRN (17:04)
[2016-09-02] VITALS (8 sets, daily range): BP systolic 105–127; BP diastolic 60–72; PULSE 63–89; RESP 18–20; TEMP 96–97.6; O2SAT 94–96
[2016-09-02] MEDS: VANCOMYCIN INJ 1,250 MG in SODIUM CHLOR 0.9% 250 ML INJ 250 ML IV SCH ×2 (01:32→12:45)
[2016-09-02] MEDS: ENOXAPARIN SODIUM 40 MG/0.4 ML SYRINGE SQ SCH (01:32)
[2016-09-02] MEDS: RESP: ALBUTEROL 2.5 MG/IPRATROPIUM 0.5 MG NEB (SCH) NEB ×3 (07:52→20:29)
[2016-09-02] MEDS: LEFLUNOMIDE 20 MG TAB PO SCH (08:54)
[2016-09-02] MEDS: LISINOPRIL 10 MG TAB PO SCH (08:55)
[2016-09-02] MEDS: CHOLECALCIFEROL (VIT D3) 1000 UNIT TAB PO SCH (08:55)
[2016-09-02] MEDS: ACETAMINOPHEN/HYDROcodone 325 MG/10 MG TAB PO PRN ×3 (08:56→20:21)
[2016-09-02] MEDS: predniSONE 10 MG TAB PO SCH (08:56)
[2016-09-02] MEDS: BUDESONIDE-FORMOTEROL 80/4.5 MCG INHALER INH SCH ×2 (08:57→20:20)
[2016-09-02] MEDS: SODIUM CHLORIDE 0.9% FLUSH 5 ML FLUSH FLUSH SCH ×2 (08:58→20:22)
[2016-09-02] MEDS: FUROSEMIDE 40 MG/4 ML VIAL IV PUSH SCH ×2 (08:58→17:28)
--- NOTE | 2016-09-02 09:00 | HHI.PR ---
Subjective History of Present Illness Patient feel better redness of right lower extremity better infectious disease input noted .d/w RN Lydia at bed side. Review of Systems Constitutional Constitutional: Fatigue, Weakness Integumentary Skin Remarks redness/swelling right lower extremity. Vitals/Results Intake & Output 09/01/16 09/01/16 09/02/16 15:00 23:00 07:00 Intake Total 450 ml Balance 450 ml Intake Oral 200 ml IV Total 250 ml # Voids 6 4 # Bowel Movements 0 0 Vital Signs Vital Signs Date Time Temp Pulse Resp B/P Pulse Ox O2 Delivery O2 Flow Rate FiO2 09/02/16 08:00 97.6 63 18 108/60 95 09/02/16 07:54 96 Nasal Cannula 3.00 09/02/16 04:00 09/02/16 00:56 97.2 76 18 107/62 96 09/01/16 22:00 18 09/01/16 20:15 96 Nasal Cannula 3.00 09/01/16 20:00 Nasal Cannula 2.00 09/01/16 20:00 97.4 111 16 127/68 94 09/01/16 16:32 94 Nasal Cannula 2.00 09/01/16 16:02 97.5 88 19 109/78 93 09/01/16 12:00 97.3 84 18 112/62 92 CBC/BMP: 09/01/16 0622 09/02/16 0740 Lab Results Laboratory Tests Test 09/02/16 07:40 Creatinine 0.73 MG/DL Estimat Glomerular Filtration 81 ML/MIN Rate Physical Exam General General Appearance: Well Developed, Well Nourished, No Acute Distress, Comfortable Eyes Eye Exam: Pupils Equal, Pupils Reactive, Sclera White, Extraocular Movement Intact Throat Throat Exam: Oral Mucosa [place] & Moist, Oral Pharynx Normal Neck Neck Exam: Neck Supple, Trachea Midline Pulmonary Resp Exam: Rhonchi, Decreased Bases Resp Remarks Bilateral mild wheezing. Cardiology CV Exam: Regular, Normal Sinus Rhythm, Good Perfusion Gastrointestinal/Abdomen GI Exam: Soft, Non-Tender, Bowel Sounds Present Musculoskeletal MS Exam: Normal Tone Integumentary Skin Remarks erythema /swelling right lower extremity. no calf tenderness. Extremeties Extremities Exam: Pitting Edema Neurologic Neuro Exam: Alert, Awake, Oriented, Speech Clear, Moving All Extremities, No Focal Deficits Psychiatric Psych Exam: Appropriate Responses VTE Prophylaxis VTE Prophylaxis Meds: Heparin PUD Prophylasis PUD Prophylaxis: Protonix Assessment/Plan Assessment/Plan ASSESSMENT/PLAN 1. This is a 61-year female who came to the ER diagnosed with a cellulitis of the right lower extremity. Venous doppler negative for DVT. The patient on vancomycin and Levaquin 500 mg IV daily. Improving. infectious disease input noted agree with antibiotic.. Further recommendation per ID. 2. History of severe COPD. Continue home medication. The patient is oxygen dependent at home. Continue the home medications. 3. History of arthritis. Continue home medications. 4. History of hypertension. Continue home medication. We will monitor blood pressure. 5. History of a borderline diabetes. We will monitor blood sugar. 6. History of hyperlipidemia. Continue with Zocor. 7. History of GERD. Continue with Protonix. 8. History of migraine headache. Continue the home medication. 9. History of depression. Continue home medication. 10. DVT prophylaxis heparin 5000 units subcutaneous twice a day. 11. GI prophylaxis Protonix 40 mg p.o. daily. 12. We are going to manage the patient on a daily basis and make recommendation on a daily basis. Check CBC with diff CMP in AM. Discussed Condition with: Patient Koby Lopez MD Sep 02, 2016 09:00
[2016-09-02] MEDS: PRAVASTATIN SOD 80 MG TAB PO SCH (09:40)
[2016-09-02] MEDS: LEVOFLOXACIN 500 MG PREMIX INJ 100 ML IV SCH (11:33)
[2016-09-02] MEDS: SODIUM CHLORIDE 0.9% FLUSH 5 ML FLUSH FLUSH PRN ×2 (11:34→14:33)
[2016-09-02] MEDS: RESP: ALBUTEROL 0.63 MG/3 ML NEB (PRN) NEB (16:59)
[2016-09-02] MEDS: ONDANSETRON HCL 4 MG/2 ML VIAL IVP PRN (19:35)
[2016-09-03] VITALS (7 sets, daily range): BP systolic 110–119; BP diastolic 67–73; PULSE 68–98; RESP 18–20; TEMP 97.6–98; O2SAT 93–95
[2016-09-03] MEDS: VANCOMYCIN INJ 1,250 MG in SODIUM CHLOR 0.9% 250 ML INJ 250 ML IV SCH ×2 (01:14→14:37)
[2016-09-03] MEDS: ENOXAPARIN SODIUM 40 MG/0.4 ML SYRINGE SQ SCH (01:14)
[2016-09-03] MEDS: ACETAMINOPHEN/HYDROcodone 325 MG/10 MG TAB PO PRN ×4 (02:28→21:19)
[2016-09-03 06:48] LABS: AUTOMATED NEUTROPHIL # 3.8 TH/MM3 (1.8-7.7); BASOPHIL # 0.1 TH/MM3 (0-0.2); EOSINOPHIL # 0.1 TH/MM3 (0-0.4); EOSINOPHIL % 1.4 % (0.0-4.0); HEMO FLAGS DIFF FINAL; LYMPH % 21.8 % (9.0-44.0); LYMPHOCYTE # 1.4 TH/MM3 (1.0-4.8); MEAN CELL VOLUME 87.4 FL (80.0-100.0); MEAN CORPUSCULAR HEMOGLOBIN 28.2 PG (27.0-34.0); MEAN CORPUSCULAR HGB CONC 32.2 % (32.0-36.0); MONO % 14.8 % (0.0-8.0); PLATELET COUNT 320 TH/MM3 (150-450); RED BLOOD COUNT 4.23 MIL/MM3 (4.00-5.30); RED CELL DISTRIBUTION WIDTH 13.5 % (11.6-17.2); WHITE BLOOD COUNT 6.4 TH/MM3 (4.0-11.0)
[2016-09-03 06:56] LABS: CHLORIDE 101 MEQ/L (98-107); POTASSIUM 3.1 MEQ/L (3.5-5.1); SODIUM (NA) 143 MEQ/L (136-145)
[2016-09-03 07:01] LABS: ANION GAP 8 MEQ/L (5-15); BICARBONATE 33.7 MEQ/L (21.0-32.0); BLOOD UREA NITROGEN 14 MG/DL (7-18)
[2016-09-03 07:04] LABS: ALT (GPT) 32 U/L (10-53); AST (GOT) 21 U/L (15-37); GLOMERULAR FILTRATION RATE 79 ML/MIN (>89)
[2016-09-03 07:06] LABS: TOTAL BILIRUBIN ADULT 0.4 MG/DL (0.2-1.0)
[2016-09-03 07:07] LABS: ALKALINE PHOSPHATASE 60 U/L (45-117)
--- NOTE | 2016-09-03 08:15 | HHI.PR ---
Subjective History of Present Illness Patient feel better redness of right lower extremity better infectious disease input noted .d/w RN Meryl. Review of Systems Constitutional Constitutional: Fatigue, Weakness Integumentary Skin Remarks redness/swelling right lower extremity. Vitals/Results Intake & Output 09/02/16 09/02/16 09/03/16 15:00 23:00 07:00 Intake Total 1280 ml 480 ml Balance 1280 ml 480 ml Intake Oral 1280 ml 480 ml # Voids 5 5 # Bowel Movements 0 0 Vital Signs Vital Signs Date Time Temp Pulse Resp B/P Pulse Ox O2 Delivery O2 Flow Rate FiO2 09/03/16 03:41 20 09/03/16 00:00 97.8 79 20 118/67 95 09/02/16 20:30 95 Nasal Cannula 2.50 09/02/16 20:00 Nasal Cannula 2.00 09/02/16 20:00 96.0 89 18 127/72 95 09/02/16 16:00 97.5 82 18 105/69 94 09/02/16 12:00 97.5 83 20 117/67 94 09/02/16 11:39 95 Nasal Cannula 2.50 CBC/BMP: 09/03/16 0618 09/03/16 0618 Lab Results Laboratory Tests Test 09/03/16 06:18 White Blood Count 6.4 TH/MM3 Red Blood Count 4.23 MIL/MM3 Hemoglobin 11.9 GM/DL Hematocrit 37.0 % Mean Corpuscular Volume 87.4 FL Mean Corpuscular Hemoglobin 28.2 PG Mean Corpuscular Hemoglobin 32.2 % Concent Red Cell Distribution Width 13.5 % Platelet Count 320 TH/MM3 Mean Platelet Volume 7.1 FL Neutrophils (%) (Auto) 61.0 % Lymphocytes (%) (Auto) 21.8 % Monocytes (%) (Auto) 14.8 % Eosinophils (%) (Auto) 1.4 % Basophils (%) (Auto) 1.0 % Neutrophils # (Auto) 3.8 TH/MM3 Lymphocytes # (Auto) 1.4 TH/MM3 Monocytes # (Auto) 1.0 TH/MM3 Eosinophils # (Auto) 0.1 TH/MM3 Basophils # (Auto) 0.1 TH/MM3 CBC Comment DIFF FINAL Differential Comment Sodium Level 143 MEQ/L Potassium Level 3.1 MEQ/L Chloride Level 101 MEQ/L Carbon Dioxide Level 33.7 MEQ/L Anion Gap 8 MEQ/L Blood Urea Nitrogen 14 MG/DL Creatinine 0.75 MG/DL Estimat Glomerular Filtration 79 ML/MIN Rate Random Glucose 113 MG/DL Calcium Level 8.9 MG/DL Total Bilirubin 0.4 MG/DL Aspartate Amino Transf 21 U/L (AST/SGOT) Alanine Aminotransferase 32 U/L (ALT/SGPT) Alkaline Phosphatase 60 U/L Total Protein 6.3 GM/DL Albumin 2.8 GM/DL Physical Exam General General Appearance: Well Developed, Well Nourished, No Acute Distress, Comfortable Eyes Eye Exam: Pupils Equal, Pupils Reactive, Sclera White, Extraocular Movement Intact Throat Throat Exam: Oral Mucosa [place] & Moist, Oral Pharynx Normal Neck Neck Exam: Neck Supple, Trachea Midline Pulmonary Resp Exam: Rhonchi, Decreased Bases Resp Remarks Bilateral mild wheezing. Cardiology CV Exam: Regular, Normal Sinus Rhythm, Good Perfusion Gastrointestinal/Abdomen GI Exam: Soft, Non-Tender, Bowel Sounds Present Musculoskeletal MS Exam: Normal Tone Integumentary Skin Remarks erythema /swelling right lower extremity. no calf tenderness. Extremeties Extremities Exam: Pitting Edema Neurologic Neuro Exam: Alert, Awake, Oriented, Speech Clear, Moving All Extremities, No Focal Deficits Psychiatric Psych Exam: Appropriate Responses VTE Prophylaxis VTE Prophylaxis Meds: Heparin PUD Prophylasis PUD Prophylaxis: Protonix Assessment/Plan Assessment/Plan ASSESSMENT/PLAN 1. This is a 61-year female who came to the ER diagnosed with a cellulitis of the right lower extremity. Venous doppler negative for DVT. The patient on vancomycin and Levaquin 500 mg IV daily. Improving. infectious disease input noted agree with antibiotic.. Further recommendation per ID. 2. History of severe COPD. Continue home medication. The patient is oxygen dependent at home. Continue the home medications. 3. History of arthritis. Continue home medications. 4. History of hypertension. Continue home medication. We will monitor blood pressure. 5. History of a borderline diabetes. We will monitor blood sugar. 6. History of hyperlipidemia. Continue with Zocor. 7. History of GERD. Continue with Protonix. 8. History of migraine headache. Continue the home medication. 9. History of depression. Continue home medication. 10. DVT prophylaxis heparin 5000 units subcutaneous twice a day. 11. GI prophylaxis Protonix 40 mg p.o. daily. 12. We are going to manage the patient on a daily basis and make recommendation on a daily basis. Check CBC with diff CMP in AM. Discussed Condition with: Patient Koby Lopez MD Sep 03, 2016 08:15
[2016-09-03] MEDS: RESP: ALBUTEROL 2.5 MG/IPRATROPIUM 0.5 MG NEB (SCH) NEB ×4 (08:27→19:17)
[2016-09-03] MEDS: CHOLECALCIFEROL (VIT D3) 1000 UNIT TAB PO SCH (09:00)
[2016-09-03] MEDS: predniSONE 10 MG TAB PO SCH (09:01)
[2016-09-03] MEDS: PRAVASTATIN SOD 80 MG TAB PO SCH (09:01)
[2016-09-03] MEDS: LEFLUNOMIDE 20 MG TAB PO SCH (09:01)
[2016-09-03] MEDS: FUROSEMIDE 40 MG/4 ML VIAL IV PUSH SCH ×2 (09:01→18:25)
[2016-09-03] MEDS: LISINOPRIL 10 MG TAB PO SCH (09:01)
[2016-09-03] MEDS: BUDESONIDE-FORMOTEROL 80/4.5 MCG INHALER INH SCH ×2 (09:02→19:53)
[2016-09-03] MEDS: SODIUM CHLORIDE 0.9% FLUSH 5 ML FLUSH FLUSH SCH ×2 (09:02→19:53)
[2016-09-03] MEDS ORDERED: VANCOMYCIN TROUGH XX ONE (12:45)
[2016-09-03] MEDS: LEVOFLOXACIN 500 MG PREMIX INJ 100 ML IV SCH (13:13)
--- NOTE | 2016-09-03 19:21 | HHI.IDPN ---
Subjective Subjective Remarks afebrile cont ot co SOB RLE swelling redness and pain dramatically improved Antibiotics vanco levaquin Allergies: Coded Allergies: Codeine (Verified Allergy, Mild, RASH, 08/27/16) *MDRO Multi-Drug Resistant Organism (Verified Adverse Reaction, Unknown, ) MRSA PCR (nares) POSITIVE - 01/11/16 Objective . Vital Signs Date Time Temp Pulse Resp B/P Pulse Ox O2 Delivery O2 Flow Rate FiO2 09/03/16 16:00 98.0 77 18 112/73 09/03/16 12:00 98.0 70 18 110/70 93 09/03/16 08:28 95 Nasal Cannula 2.50 09/03/16 08:00 97.8 68 18 115/73 93 09/03/16 07:00 Nasal Cannula 2.00 09/03/16 03:41 20 09/03/16 00:00 97.8 79 20 118/67 95 09/02/16 20:30 95 Nasal Cannula 2.50 09/02/16 20:00 Nasal Cannula 2.00 09/02/16 20:00 96.0 89 18 127/72 95 09/02/16 09/02/16 09/03/16 15:00 23:00 07:00 Intake Total 1280 ml 480 ml Balance 1280 ml 480 ml Intake Oral 1280 ml 480 ml # Voids 5 5 # Bowel Movements 0 0 . Laboratory Tests Test 09/03/16 06:18 White Blood Count 6.4 TH/MM3 Red Blood Count 4.23 MIL/MM3 Hemoglobin 11.9 GM/DL Hematocrit 37.0 % Mean Corpuscular Volume 87.4 FL Mean Corpuscular Hemoglobin 28.2 PG Mean Corpuscular Hemoglobin 32.2 % Concent Red Cell Distribution Width 13.5 % Platelet Count 320 TH/MM3 Mean Platelet Volume 7.1 FL Neutrophils (%) (Auto) 61.0 % Lymphocytes (%) (Auto) 21.8 % Monocytes (%) (Auto) 14.8 % Eosinophils (%) (Auto) 1.4 % Basophils (%) (Auto) 1.0 % Neutrophils # (Auto) 3.8 TH/MM3 Lymphocytes # (Auto) 1.4 TH/MM3 Monocytes # (Auto) 1.0 TH/MM3 Eosinophils # (Auto) 0.1 TH/MM3 Basophils # (Auto) 0.1 TH/MM3 CBC Comment DIFF FINAL Differential Comment Laboratory Tests Test 09/02/16 09/03/16 07:40 06:18 Creatinine 0.73 MG/DL 0.75 MG/DL Estimat Glomerular Filtration 81 ML/MIN 79 ML/MIN Rate Sodium Level 143 MEQ/L Potassium Level 3.1 MEQ/L Chloride Level 101 MEQ/L Carbon Dioxide Level 33.7 MEQ/L Anion Gap 8 MEQ/L Blood Urea Nitrogen 14 MG/DL Random Glucose 113 MG/DL Calcium Level 8.9 MG/DL Total Bilirubin 0.4 MG/DL Aspartate Amino Transf 21 U/L (AST/SGOT) Alanine Aminotransferase 32 U/L (ALT/SGPT) Alkaline Phosphatase 60 U/L Total Protein 6.3 GM/DL Albumin 2.8 GM/DL Imaging Last Impressions Lower Extremity Ultrasound 08/29/16 0000 Signed Impressions: Service Date/Time: Monday, August 29, 2016 10:43 - CONCLUSION: No evidence of deep venous thrombosis within the lower extremities. Levi Jarquin MD Tibia/Fibula X-Ray 08/27/16 0000 Signed Impressions: Service Date/Time: Saturday, August 27, 2016 23:15 - CONCLUSION: No acute disease. Lucien Lakhani MD Physical Exam CONSTITUTIONAL/GENERAL: This is an obese patient, in no apparent distress. TUBES/LINES/DRAINS: SKIN: No jaundice, rashes, or lesions. Skin temperature appropriate. Not diaphoretic. MUSCULOSKELETAL: Extremities without clubbing, cyanosis, small amount of residual edema and erythema RLE RLE not tender to papation R [place] dry and healing Assessment & Plan Remarks RLE cellulitis, resolving blood clx remain negative so far Port of entry -m minor skin trauma Chronic prednisone use 2/2 COPD Remote h/o tonbacco (quit 10 yrs ago) dc levaquine , vanco for now OK to transition to oral abx : keflex 500 qid, doxycycline 100 bid to complete 14 day course Alicja Oliva MD Sep 03, 2016 19:21
[2016-09-03] MEDS: CEPHALEXIN MONOHYDRATE 500 MG CAP PO SCH (19:52)
[2016-09-03] MEDS: DOXYCYCLINE HYCLATE 100 MG TAB PO SCH (19:53)
[2016-09-03] MEDS ORDERED: POTASSIUM CHLORIDE 20 MEQ CONTROLLED RELEASE TAB PO ONE (20:00)
[2016-09-03] MEDS: ONDANSETRON HCL 4 MG/2 ML VIAL IVP PRN (21:18)
[2016-09-04] VITALS (7 sets, daily range): BP systolic 107–150; BP diastolic 72–81; PULSE 76–98; RESP 18–20; TEMP 97.3–98.9; O2SAT 93–97
[2016-09-04] MEDS: CEPHALEXIN MONOHYDRATE 500 MG CAP PO SCH ×5 (00:08→21:15)
[2016-09-04] MEDS: ENOXAPARIN SODIUM 40 MG/0.4 ML SYRINGE SQ SCH ×2 (02:29→23:59)
[2016-09-04] MEDS: ACETAMINOPHEN/HYDROcodone 325 MG/10 MG TAB PO PRN ×3 (04:16→18:21)
[2016-09-04 06:18] LABS: AUTOMATED NEUTROPHIL # 3.9 TH/MM3 (1.8-7.7); BASOPHIL # 0.1 TH/MM3 (0-0.2); BASOPHIL % 1.3 % (0.0-2.0); EOSINOPHIL # 0.1 TH/MM3 (0-0.4); EOSINOPHIL % 1.7 % (0.0-4.0); HEMATOCRIT 36.4 % (35.0-46.0); HEMO FLAGS DIFF FINAL; LYMPH % 21.5 % (9.0-44.0); LYMPHOCYTE # 1.4 TH/MM3 (1.0-4.8); MEAN CELL VOLUME 87.1 FL (80.0-100.0); MEAN CORPUSCULAR HEMOGLOBIN 29.2 PG (27.0-34.0); MEAN CORPUSCULAR HGB CONC 33.5 % (32.0-36.0); NEUT % 63.5 % (16.0-70.0); PLATELET COUNT 322 TH/MM3 (150-450); RED BLOOD COUNT 4.18 MIL/MM3 (4.00-5.30); RED CELL DISTRIBUTION WIDTH 13.4 % (11.6-17.2); WHITE BLOOD COUNT 6.3 TH/MM3 (4.0-11.0)
[2016-09-04 06:24] LABS: CHLORIDE 101 MEQ/L (98-107); POTASSIUM 3.7 MEQ/L (3.5-5.1); SODIUM (NA) 141 MEQ/L (136-145)
[2016-09-04 06:28] LABS: ANION GAP 8 MEQ/L (5-15); BICARBONATE 32.1 MEQ/L (21.0-32.0); BLOOD UREA NITROGEN 14 MG/DL (7-18)
[2016-09-04 06:31] LABS: ALT (GPT) 34 U/L (10-53); AST (GOT) 24 U/L (15-37); GLOMERULAR FILTRATION RATE 80 ML/MIN (>89)
[2016-09-04 06:32] LABS: TOTAL BILIRUBIN ADULT 0.5 MG/DL (0.2-1.0)
[2016-09-04 06:34] LABS: ALKALINE PHOSPHATASE 61 U/L (45-117)
[2016-09-04] MEDS: RESP: ALBUTEROL 2.5 MG/IPRATROPIUM 0.5 MG NEB (SCH) NEB ×4 (07:42→19:22)
[2016-09-04] MEDS: BUDESONIDE-FORMOTEROL 80/4.5 MCG INHALER INH SCH ×2 (08:46→21:15)
[2016-09-04] MEDS: predniSONE 10 MG TAB PO SCH (08:48)
[2016-09-04] MEDS: LEFLUNOMIDE 20 MG TAB PO SCH (08:48)
[2016-09-04] MEDS: CHOLECALCIFEROL (VIT D3) 1000 UNIT TAB PO SCH (08:48)
[2016-09-04] MEDS: PRAVASTATIN SOD 80 MG TAB PO SCH (08:48)
[2016-09-04] MEDS: SODIUM CHLORIDE 0.9% FLUSH 5 ML FLUSH FLUSH SCH ×2 (08:49→21:15)
[2016-09-04] MEDS: DOXYCYCLINE HYCLATE 100 MG TAB PO SCH ×2 (08:49→21:15)
[2016-09-04] MEDS: FUROSEMIDE 40 MG/4 ML VIAL IV PUSH SCH ×2 (08:49→17:16)
[2016-09-04] MEDS: LISINOPRIL 10 MG TAB PO SCH (08:52)
--- NOTE | 2016-09-04 14:19 | HHI.PR ---
Subjective History of Present Illness Patient feel better redness of right lower extremity better infectious disease input noted .d/w RN Meryl. Review of Systems Constitutional Constitutional: Fatigue, Weakness Integumentary Skin Remarks redness/swelling right lower extremity. Vitals/Results Intake & Output 09/03/16 09/03/16 09/04/16 15:00 23:00 07:00 Intake Total 1220 ml 820 ml Balance 1220 ml 820 ml Intake Oral 1220 ml 820 ml # Voids 5 3 # Bowel Movements 0 0 Vital Signs Vital Signs Date Time Temp Pulse Resp B/P Pulse Ox O2 Delivery O2 Flow Rate FiO2 09/04/16 12:00 98.1 76 18 150/78 96 09/04/16 08:00 97.7 77 18 107/81 93 09/04/16 07:42 97 Nasal Cannula 2.00 09/04/16 07:00 Nasal Cannula 2.00 09/04/16 05:45 18 09/04/16 00:00 98.9 79 18 107/76 95 09/03/16 20:00 Nasal Cannula 2.00 09/03/16 20:00 97.6 98 18 119/69 95 09/03/16 19:15 95 Nasal Cannula 2.50 09/03/16 16:00 98.0 77 18 112/73 CBC/BMP: 09/04/16 0545 09/04/16 0545 Lab Results Laboratory Tests Test 09/04/16 05:45 White Blood Count 6.3 TH/MM3 Red Blood Count 4.18 MIL/MM3 Hemoglobin 12.2 GM/DL Hematocrit 36.4 % Mean Corpuscular Volume 87.1 FL Mean Corpuscular Hemoglobin 29.2 PG Mean Corpuscular Hemoglobin 33.5 % Concent Red Cell Distribution Width 13.4 % Platelet Count 322 TH/MM3 Mean Platelet Volume 7.3 FL Neutrophils (%) (Auto) 63.5 % Lymphocytes (%) (Auto) 21.5 % Monocytes (%) (Auto) 12.0 % Eosinophils (%) (Auto) 1.7 % Basophils (%) (Auto) 1.3 % Neutrophils # (Auto) 3.9 TH/MM3 Lymphocytes # (Auto) 1.4 TH/MM3 Monocytes # (Auto) 0.8 TH/MM3 Eosinophils # (Auto) 0.1 TH/MM3 Basophils # (Auto) 0.1 TH/MM3 CBC Comment DIFF FINAL Differential Comment Sodium Level 141 MEQ/L Potassium Level 3.7 MEQ/L Chloride Level 101 MEQ/L Carbon Dioxide Level 32.1 MEQ/L Anion Gap 8 MEQ/L Blood Urea Nitrogen 14 MG/DL Creatinine 0.74 MG/DL Estimat Glomerular Filtration 80 ML/MIN Rate Random Glucose 107 MG/DL Calcium Level 9.0 MG/DL Total Bilirubin 0.5 MG/DL Aspartate Amino Transf 24 U/L (AST/SGOT) Alanine Aminotransferase 34 U/L (ALT/SGPT) Alkaline Phosphatase 61 U/L Total Protein 6.5 GM/DL Albumin 2.9 GM/DL Physical Exam General General Appearance: Well Developed, Well Nourished, No Acute Distress, Comfortable Eyes Eye Exam: Pupils Equal, Pupils Reactive, Sclera White, Extraocular Movement Intact Throat Throat Exam: Oral Mucosa [place] & Moist, Oral Pharynx Normal Neck Neck Exam: Neck Supple, Trachea Midline Pulmonary Resp Exam: Rhonchi, Decreased Bases Resp Remarks Bilateral mild wheezing. Cardiology CV Exam: Regular, Normal Sinus Rhythm, Good Perfusion Gastrointestinal/Abdomen GI Exam: Soft, Non-Tender, Bowel Sounds Present Musculoskeletal MS Exam: Normal Tone Integumentary Skin Remarks erythema /swelling right lower extremity. no calf tenderness. Extremeties Extremities Exam: Pitting Edema Neurologic Neuro Exam: Alert, Awake, Oriented, Speech Clear, Moving All Extremities, No Focal Deficits Psychiatric Psych Exam: Appropriate Responses VTE Prophylaxis VTE Prophylaxis Meds: Heparin PUD Prophylasis PUD Prophylaxis: Protonix Assessment/Plan Assessment/Plan ASSESSMENT/PLAN 1. This is a 61-year female who came to the ER diagnosed with a cellulitis of the right lower extremity. Venous doppler negative for DVT. The patient on vancomycin and Levaquin 500 mg IV daily. Improving. infectious disease input noted agree with antibiotic.. Further recommendation per ID. 2. History of severe COPD. Continue home medication. The patient is oxygen dependent at home. Continue the home medications. 3. History of arthritis. Continue home medications. 4. History of hypertension. Continue home medication. We will monitor blood pressure. 5. History of a borderline diabetes. We will monitor blood sugar. 6. History of hyperlipidemia. Continue with Zocor. 7. History of GERD. Continue with Protonix. 8. History of migraine headache. Continue the home medication. 9. History of depression. Continue home medication. 10. DVT prophylaxis heparin 5000 units subcutaneous twice a day. 11. GI prophylaxis Protonix 40 mg p.o. daily. 12. We are going to manage the patient on a daily basis and make recommendation on a daily basis. Check CBC with diff CMP in AM. Koby Lopez MD Sep 04, 2016 14:19
[2016-09-04] MEDS: SENNOSIDES 8.6 MG TAB PO PRN (21:15)
[2016-09-05] VITALS: BP 125/75; PULSE 87; RESP 20; TEMP 96.9; O2SAT 97
[2016-09-05] MEDS: CEPHALEXIN MONOHYDRATE 500 MG CAP PO SCH (06:20)
[2016-09-05] MEDS: RESP: ALBUTEROL 2.5 MG/IPRATROPIUM 0.5 MG NEB (SCH) NEB (07:08)
[2016-09-05 07:09] VITALS: O2SAT 97
[2016-09-05] MEDS: ACETAMINOPHEN/HYDROcodone 325 MG/10 MG TAB PO PRN ×2 (07:59)
[2016-09-05 08:00] VITALS: BP 112/60; PULSE 78; RESP 20; TEMP 97.1; O2SAT 95
--- NOTE | 2016-09-05 08:29 | HHI.PR ---
Subjective History of Present Illness Patient feel better redness of right lower extremity better infectious disease input noted .d/w RN Meryl. wants to go home today...ok to dc home today, Review of Systems Constitutional Constitutional: Fatigue, Weakness Integumentary Skin Remarks redness/swelling right lower extremity. Vitals/Results Intake & Output 09/04/16 09/04/16 09/05/16 15:00 23:00 07:00 Intake Total 600 ml 180 ml Balance 600 ml 180 ml Intake Oral 600 ml 180 ml # Voids 5 # Bowel Movements 0 Vital Signs Vital Signs Date Time Temp Pulse Resp B/P Pulse Ox O2 Delivery O2 Flow Rate FiO2 09/05/16 07:09 97 Nasal Cannula 2.50 09/05/16 00:00 96.9 87 20 125/75 97 09/04/16 20:03 20 09/04/16 20:00 97.3 98 20 112/73 95 09/04/16 19:20 94 Nasal Cannula 2.50 09/04/16 17:16 124/72 09/04/16 12:00 98.1 76 18 150/78 96 CBC/BMP: 09/04/16 0545 09/04/16 0545 Physical Exam General General Appearance: Well Developed, Well Nourished, No Acute Distress, Comfortable Eyes Eye Exam: Pupils Equal, Pupils Reactive, Sclera White, Extraocular Movement Intact Throat Throat Exam: Oral Mucosa [place] & Moist, Oral Pharynx Normal Neck Neck Exam: Neck Supple, Trachea Midline Pulmonary Resp Exam: Rhonchi, Decreased Bases Resp Remarks Bilateral mild wheezing. Cardiology CV Exam: Regular, Normal Sinus Rhythm, Good Perfusion Gastrointestinal/Abdomen GI Exam: Soft, Non-Tender, Bowel Sounds Present Musculoskeletal MS Exam: Normal Tone Integumentary Skin Remarks erythema /swelling right lower extremity. no calf tenderness. Extremeties Extremities Exam: Pitting Edema Neurologic Neuro Exam: Alert, Awake, Oriented, Speech Clear, Moving All Extremities, No Focal Deficits Psychiatric Psych Exam: Appropriate Responses VTE Prophylaxis VTE Prophylaxis Meds: Heparin PUD Prophylasis PUD Prophylaxis: Protonix Assessment/Plan Assessment/Plan ASSESSMENT/PLAN 1. This is a 61-year female who came to the ER diagnosed with a cellulitis of the right lower extremity. Venous doppler negative for DVT. The patient on vancomycin and Levaquin 500 mg IV daily. Improving. infectious disease input noted agree with antibiotic.. Further recommendation per ID. 2. History of severe COPD. Continue home medication. The patient is oxygen dependent at home. Continue the home medications. 3. History of arthritis. Continue home medications. 4. History of hypertension. Continue home medication. We will monitor blood pressure. 5. History of a borderline diabetes. We will monitor blood sugar. 6. History of hyperlipidemia. Continue with Zocor. 7. History of GERD. Continue with Protonix. 8. History of migraine headache. Continue the home medication. 9. History of depression. Continue home medication. 10. DVT prophylaxis heparin 5000 units subcutaneous twice a day. 11. GI prophylaxis Protonix 40 mg p.o. daily. ok to DC Home today. f/u with PCP 2-3 days. Discussed Condition with: Patient Koby Lopez MD Sep 05, 2016 08:29
[2016-09-05] MEDS ORDERED: DOXY100T PO (08:32)
[2016-09-05] MEDS ORDERED: CEPH500C PO (08:32)
[2016-09-05] MEDS: BUDESONIDE-FORMOTEROL 80/4.5 MCG INHALER INH SCH (09:00)
[2016-09-05] MEDS: CHOLECALCIFEROL (VIT D3) 1000 UNIT TAB PO SCH (09:00)
[2016-09-05 09:54] VITALS: RESP 17
[2016-09-05] MEDS: LEFLUNOMIDE 20 MG TAB PO SCH (09:56)
[2016-09-05] MEDS: LISINOPRIL 10 MG TAB PO SCH (09:56)
[2016-09-05] MEDS: DOXYCYCLINE HYCLATE 100 MG TAB PO SCH (09:56)
[2016-09-05] MEDS: PRAVASTATIN SOD 80 MG TAB PO SCH (09:56)
[2016-09-05] MEDS: predniSONE 10 MG TAB PO SCH (09:56)
[2016-09-05] MEDS: FUROSEMIDE 40 MG/4 ML VIAL IV PUSH SCH (09:57)
[2016-09-05] MEDS: SODIUM CHLORIDE 0.9% FLUSH 5 ML FLUSH FLUSH SCH (09:57)
--- NOTE | 2016-09-19 11:45 | MD ---
cc: KOBY LEONARD MD ADMISSION DATE: 09/01/2016 DISCHARGE DATE: 09/05/2016 Okay to discharge the patient. CONDITION AT THE TIME OF DISCHARGE Satisfactory ACTIVITY As tolerated. DIET Cardiac diet ALLERGIES CODEINE DISCHARGE MEDICATIONS Include: 1. Keflex 500 mg p.o. q. 6-hour 2. Doxycycline 100 mg p.o. daily for 2 weeks, Both 3. Albuterol nebulization q.i.d. 4. Symbicort of 2 puffs inhalation q.12 h 5. Vitamin D 1000 units p.o. daily 6. Folic acid 5 mg p.o. daily 7. Furosemide 20 mg p.o. daily 8. Raysal 10/325 p.o. q.6 h p.r.n. pain 9. Leflunomide 20 mg p.o. daily 10. Lisinopril 10 mg daily 11. Prednisone 10 mg daily 12. Simvastatin 40 mg p.o. daily FOLLOW UP The patient advised to follow with PCP in one week. ADMITTING DIAGNOSIS Cellulitis of the right leg. DISCHARGE DIAGNOSIS Right leg improved. Other comorbidities include: 1. History of COPD. The patient is oxygen dependent at home. 2. History of arthritis. 3. History of hypertension. 4. History of borderline diabetes mellitus. 5. History of hyperlipidemia. 6. History of gastroesophageal reflux disease. 7. History of migraine headache. 8. History of depression. HOSPITAL COURSE This is a 61-year female admitted with cellulitis of the right lower extremity. Had a venous Doppler negative for DVT. The patient was given vancomycin and Levaquin during the hospital stay. Infectious disease seen the patient. The patient remained stable and no acute event happened. The patient discharged in a satisfactory condition. Further details in the medical record. Koby Leonard MD EA/JUANITA /11:21 AM /11:36 AM
[2016-11-06] MEDS ORDERED: CHOL100028 PO (14:10)
[2016-11-06] MEDS ORDERED: FOLI800T PO (14:10)
[2016-11-06] MEDS ORDERED: BIOT1SUB SL (14:10)
[2016-11-06] MEDS ORDERED: FURO40TA PO (14:10)
[2016-11-06] MEDS ORDERED: CIPR-9 PO (14:30)
[2016-11-13] MEDS ORDERED: CETI10 PO (14:50)
[2016-11-13] MEDS ORDERED: LISI-515 PO (14:50)
[2016-11-13] MEDS ORDERED: OMEP40CA2 PO (14:50)
[2016-11-13] MEDS ORDERED: PROM12.54 PO (14:50)
== END 2016-09-05 10:50 | disposition home or self-care (01) | DRG 603 ==
LOC: PHED 18:40 → PHEDA 08-28 01:32 → PHEDH 08-28 05:38 → PH3A 08-28 15:43 → OBSVTOIN 09-01 09:25
PROVIDERS: ADMIT Family Medicine; ATTEND Family Medicine
DX: L03.115 Cellulitis of right lower limb (principal); Z99.81 Dependence on supplemental oxygen; J44.9 Chronic obstructive pulmonary disease, unspecified; I10 Essential (primary) hypertension; M19.90 Unspecified osteoarthritis, unspecified site; E78.5 Hyperlipidemia, unspecified; K21.9 Gastro-esophageal reflux disease without esophagitis; E11.9 Type 2 diabetes mellitus without complications; G47.30 Sleep apnea, unspecified; J45.909 Unspecified asthma, uncomplicated; Z79.52 Long term (current) use of systemic steroids; Z87.891 Personal history of nicotine dependence; E66.9 Obesity, unspecified
CPT/HCPCS: 73590; 76937; 80048; 80053; 80202; 82565; 83605; 85025; 87040; 93970; 94640; 94664; 96365; G0378; J1650; J1940; J1956; J2405; J3370; J7030; J7050; J7512; J7613

== ENCOUNTER 2016-11-15 12:05 | Inpatient (IN) | payer MEDICARE, OTHER ==
[~2016-11-15] VITALS: Ht 165.1 cm; Wt 91.5 kg
[~2016-11-15 12:05] MED LIST changes: +BIOT1SUB SL; +CETI10 PO; +CHOL100028 PO; -FOLI5CAP PO; +FOLI800T PO; -FURO20TA PO; +FURO40TA PO; +HYDR-3366 PO; +LEFL1TAB3 PO; +LISI-515 PO; -LISI10TA3 PO; +OMEP40CA2 PO; -PRED50 PO; +PROM12.54 PO; -VITA100064 PO
[2016-11-15 12:18] VITALS: BP 129/78; PULSE 86; RESP 16; TEMP 98.2; O2SAT 95
--- NOTE | 2016-11-15 13:21 | PD ---
HPI Chief Complaint: Respiratory Symptoms Time Seen by Provider: 13:03 Travel History International Travel<30 days: No Contact w/Intl Traveler<30days: No Traveled to known affect area: No History of Present Illness HPI This 61-year-old female is complaining of shortness of breath. She says she's had shortness of breath for one month. She's been seeing her pulmonary doctor Dr. Iniguez. sHe has had 2 courses of prednisone and antibiotics. She was initially was on Levaquin and most recently is on Cefdinir. She is currently on 10 mg of prednisone She is on oxygen all the time at 2.5 L. She has a wound on her right leg for which she is going to the wound care center. She has noted edema of her legs for quite a while. She has no history of heart disease. She has not been having any chest pain. She has been bringing up phlegm PFSH Past Medical History Hx Anticoagulant Therapy: No Arthritis: Yes (DDD, "pinched nerves") Asthma: Yes Anxiety: No Depression: Yes Heart Rhythm Problems: No Cancer: No Cardiac Catheterization: No Cardiovascular Problems: Yes (htn on meds) High Cholesterol: No Chemotherapy: No Chest Pain: Yes Congestive Heart Failure: No COPD: Yes (ON O2) Cerebrovascular Accident: No Diabetes: No Diminished Hearing: No Endocrine: No Gastrointestinal Disorders: Yes GERD: Yes Genitourinary: No Hiatal Hernia: No Heparin Induced Thrombocytopen: No Hypertension: Yes Immune Disorder: No Implanted Vascular Access Dvce: Yes Kidney Stones: No Musculoskeletal: Yes Neurologic: No Psychiatric: Yes Reproductive: No Respiratory: Yes (copd on oxygen) Immunizations Current: Yes Migraines: Yes (Hx) Pneumonia: Yes Radiation Therapy: No Renal Failure: No Sickle Cell Disease: No Sleep Apnea: No Thyroid Disease: No Ulcer: No Menopausal: Yes Past Surgical History Abdominal Surgery: No AICD: No Arteriovenous Shunt: No Cardiac Surgery: No Coronary Artery Bypass Graft: No Ear Surgery: No Endocrine Surgery: No Eye Surgery: Yes (Cataract) Genitourinary Surgery: No Gynecologic Surgery: No Hysterectomy: Yes Insulin Pump: No Joint Replacement: No Neurologic Surgery: No Oral Surgery: No Pacemaker: No Thoracic Surgery: No Other Surgery: Yes ((R) breast lumpectomy) Family History Family Myocardial Infarction: Yes Social History Alcohol Use: No Tobacco Use: No Substance Use: No Allergies-Medications (Allergen,Severity, Reaction): Coded Allergies: Codeine (Verified Adverse Reaction, Mild, Nausea, 11/15/16) *MDRO Multi-Drug Resistant Organism (Verified Adverse Reaction, Unknown, ) MRSA PCR (nares) POSITIVE - 01/11/16 Reported Meds & Prescriptions Reported Meds & Active Scripts Active Reported Lisinopril 20 Mg Tab 20 Mg PO DAILY Omeprazole 40 Mg Cap 40 Mg PO BID Promethazine (Promethazine HCl) 12.5 Mg Tab 12.5 Mg PO DIRECTED PRN Cetirizine (Cetirizine HCl) 10 Mg Tab 10 Mg PO DAILY Biotin 5,000 Mcg Subl 5,000 Mcg SL Furosemide 40 Mg Tab 40 Mg PO BID Folic Acid 800 Mcg Tab 800 Mcg PO DAILY Vitamin D3-Vitamin C (Cholecalciferol-Vitamin C) 1,000-500 Unit-Mg Cap 2 Cap PO DAILY [place] (Hydrocodone-Acetaminophen) 10-325 Mg Tab 1 Tab PO Q6H PRN Leflunomide 20 Mg Tab 20 Mg PO DAILY Symbicort Inh (Budesonide/Formoterol Fumarate) 80-4.5 Mcg/Act Aero 2 Puff INH Q12HR Albuterol Neb (Albuterol Sulfate) 0.63 Mg/3 Ml Neb 0.63 Mg NEB QID PRN Zocor (Simvastatin) 40 Mg Tab 40 Mg PO DAILY Prednisone 10 Mg Tab 10 Mg PO DAILY Review of Systems General / Constitutional: No: Fever, Chills Eyes: No: Diploplia, Blurred Vision HENT: No: Headaches Cardiovascular: No: Chest Pain or Discomfort, Palpitations Respiratory: Positive: Cough, Shortness of Breath, No: Pleuritic Pain Gastrointestinal: No: Vomiting, Diarrhea Genitourinary: No: Urgency, Frequency Musculoskeletal: Positive: Myalgias, No: Arthralgias, Weakness Skin: Positive Rash, No Itching Neurologic: No: Weakness, Dizziness Psychiatric: No: Anxiety Hematologic/Lymphatic: Positive: Easy Bruising Physical Exam Narrative GENERAL: Well-developed female SKIN: Focused skin assessment warm/dry. Multiple bruises HEAD: Atraumatic. Normocephalic. EYES: Pupils equal and round. No scleral icterus. No injection or drainage. ENT: No nasal bleeding or discharge. Mucous membranes pink and moist. NECK: Trachea midline. No JVD. CARDIOVASCULAR: Regular rate and rhythm. No murmur appreciated. RESPIRATORY: There is accessory muscle use. Breath sounds are diminished bilaterally GASTROINTESTINAL: Abdomen soft, non-tender, nondistended. Hepatic and splenic margins not palpable. MUSCULOSKELETAL: No obvious deformities. No clubbing. No cyanosis. Bilateral pedal edema. The right leg has a small superficial ulceration on the lateral aspect for which she has been going to the wound center NEUROLOGICAL: Awake and alert. No obvious cranial nerve deficits. Motor grossly within normal limits. Normal speech. PSYCHIATRIC: Appropriate mood and affect; insight and judgment normal. Data Data Last Documented VS Vital Signs Date Time Temp Pulse Resp B/P Pulse Ox O2 Delivery O2 Flow Rate FiO2 11/15/16 12:18 98.2 86 16 129/78 95 Orders Electrocardiogram (11/15/16 13:04) Complete Blood Count With Diff (11/15/16 13:04) Basic Metabolic Panel (Bmp) (11/15/16 13:04) B-Type Natriuretic Peptide (11/15/16 13:04) Urinalysis - C+S If Indicated (11/15/16 13:04) Magnesium (Mg) (11/15/16 13:04) Chest, Single Ap (11/15/16 13:04) Albuterol-Ipratropium Neb (Duoneb Neb) (11/15/16 14:30) Methylprednisolone So Succ Inj (Solumedr (11/15/16 14:30) Acetamin-Hydrocod 325-10 Mg ([place] 10-32 (11/15/16 15:00) Admit Order (Ed Use Only) (11/15/16 15:01) Labs Laboratory Tests Test 11/15/16 11/15/16 13:33 13:37 White Blood Count 10.3 TH/MM3 Red Blood Count 4.24 MIL/MM3 Hemoglobin 12.5 GM/DL Hematocrit 37.1 % Mean Corpuscular Volume 87.5 FL Mean Corpuscular Hemoglobin 29.4 PG Mean Corpuscular Hemoglobin 33.6 % Concent Red Cell Distribution Width 13.9 % Platelet Count 288 TH/MM3 Mean Platelet Volume 7.9 FL Neutrophils (%) (Auto) 77.6 % Lymphocytes (%) (Auto) 12.0 % Monocytes (%) (Auto) 5.8 % Eosinophils (%) (Auto) 0.2 % Basophils (%) (Auto) 4.4 % Neutrophils # (Auto) 8.0 TH/MM3 Lymphocytes # (Auto) 1.2 TH/MM3 Monocytes # (Auto) 0.6 TH/MM3 Eosinophils # (Auto) 0.0 TH/MM3 Basophils # (Auto) 0.5 TH/MM3 CBC Comment DIFF FINAL Differential Comment Sodium Level 140 MEQ/L Potassium Level 3.7 MEQ/L Chloride Level 98 MEQ/L Carbon Dioxide Level 34.7 MEQ/L Anion Gap 7 MEQ/L Blood Urea Nitrogen 12 MG/DL Creatinine 0.80 MG/DL Estimat Glomerular Filtration 73 ML/MIN Rate Random Glucose 160 MG/DL Calcium Level 8.6 MG/DL Magnesium Level 2.4 MG/DL B-Type Natriuretic Peptide 24 PG/ML Urine Collection Type CLEAN CATCH Urine Color YELLOW Urine Turbidity CLEAR Urine pH 6.5 Urine Specific [place] 1.011 Urine Protein NEG mg/dL Urine Glucose (UA) NEG mg/dL Urine Ketones NEG mg/dL Urine Occult Blood SMALL Urine Nitrite NEG Urine Bilirubin NEG Urine Leukocyte Esterase NEG Urine RBC 20-24 /hpf Urine WBC 0-2 /hpf Urine Squamous Epithelial 0-5 /hpf Cells Microscopic Urinalysis Comment CULT NOT INDICATED Urine Collection Time 13:37 MDM Medical Decision Making Medical Screen Exam Complete: Yes Emergency Medical Condition: Yes Medical Record Reviewed: Yes Differential Diagnosis Differential includes pneumonia, COPD exacerbation, CHF Narrative Course EKG shows sinus rhythm. Hemoglobin is 12 white count 10,000. Her BNP is 24 .she has been given Solu-Medrol and nebs. Impression is COPD. Patient has had 2 recent courses of steroids and antibiotics without improvement. She has failed outpatient treatment Diagnosis Primary Impression: Chronic obstructive pulmonary disease with acute exacerbation Admitting Information Admitting Physician Requests: Admit Tim Albarran MD Nov 15, 2016 13:20
[2016-11-15 13:42] LABS: BASOPHIL # 0.5 TH/MM3 (0-0.2); BASOPHIL % 4.4 % (0.0-2.0); EOSINOPHIL % 0.2 % (0.0-4.0); HEMATOCRIT 37.1 % (35.0-46.0); HEMO FLAGS DIFF FINAL; LYMPHOCYTE # 1.2 TH/MM3 (1.0-4.8); MEAN CELL VOLUME 87.5 FL (80.0-100.0); MEAN CORPUSCULAR HEMOGLOBIN 29.4 PG (27.0-34.0); MEAN CORPUSCULAR HGB CONC 33.6 % (32.0-36.0); MONO % 5.8 % (0.0-8.0); NEUT % 77.6 % (16.0-70.0); PLATELET COUNT 288 TH/MM3 (150-450); RED BLOOD COUNT 4.24 MIL/MM3 (4.00-5.30); RED CELL DISTRIBUTION WIDTH 13.9 % (11.6-17.2); WHITE BLOOD COUNT 10.3 TH/MM3 (4.0-11.0)
[2016-11-15 13:48] LABS: BLOOD, URINE SMALL (NEG); GLUCOSE,URINE NEG (NEG); KETONE, URINE NEG (NEG); NITRITE,URINE NEG (NEG); PH, URINE 6.5 (5.0-8.5)
[2016-11-15 13:57] LABS: POTASSIUM 3.7 MEQ/L (3.5-5.1)
[2016-11-15 13:59] LABS: BICARBONATE 34.7 MEQ/L (21.0-32.0); MAGNESIUM 2.4 MG/DL (1.5-2.5)
[2016-11-15 14:06] LABS: COMMENT (UR) CULT NOT INDICATED; CULTURE IF INDICATED CULT NOT INDICATED; METHOD OF COLLECTION CLEAN CATCH; SQUAMOUS EPITHELIAL CELL URINE 0-5 /hpf (0-5); URINE COLOR YELLOW (YELLW/STRAW); WBC, URINE 0-2 /hpf (0-5)
[2016-11-15] MEDS ORDERED: methylPREDNISolone SOD SUCC 125 MG/2 ML VIAL IV PUSH ONE (14:30)
[2016-11-15] MEDS ORDERED: RESP: ALBUTEROL 2.5 MG/IPRATROPIUM 0.5 MG NEB (SCH) NEB ONE (14:30)
[2016-11-15] MEDS ORDERED: ACETAMINOPHEN/HYDROcodone 325 MG/10 MG TAB PO ONE (15:00)
--- NOTE | 2016-11-15 15:59 | RADHPO ---
EXAM DATE/TIME: 11/15/2016 13:30 [facility] COMPARISON: CHEST SINGLE AP, January 10, 2016, 11:22. INDICATIONS : Shortness of breath for 1 month. MEDICAL HISTORY : Hypertension. Myocardial infarction. Gastroesophageal reflux disease. COPD. Asthma. Athritis. SURGICAL HISTORY : Hysterectomy. ENCOUNTER: Initial ACUITY: 1 month PAIN SCORE: 0/10 LOCATION: Bilateral chest FINDINGS: A single view of the chest demonstrates the lungs to be symmetrically aerated without evidence of mas s, infiltrate or effusion. The cardiomediastinal contours are unremarkable. Osseous structures are intact. CONCLUSION: No acute disease. Navjot Ellis MD on November 15, 2016 at 15:57 Board Certified Radiologist. This report was verified electronically.
[2016-11-15 16:55] VITALS: BP 115/62; PULSE 77; RESP 16; O2SAT 100
[2016-11-15 17:38] VITALS: BP 139/84; PULSE 73; RESP 18; TEMP 97; O2SAT 92
--- NOTE | 2016-11-15 18:30 | EKG ---
Date Performed: 11/15/2016 Time Performed: 13:21:52 PTAGE: 61 years EKG: Sinus rhythm Normal ECG NO SIGNIFICANT CHANGE FROM PRIOR ELECTROCARDIOGRAM. PREVIOUS TRACING : 07/26/2016 16.16 DOCTOR: Rashard Youngblood Interpretating Date/Time 11/15/2016 18:29:11
[2016-11-15 19:34] VITALS: O2SAT 96
[2016-11-15] MEDS: RESP: ALBUTEROL 0.63 MG/3 ML NEB (PRN) NEB (19:34)
[2016-11-15 20:00] VITALS: BP 157/88; PULSE 88; RESP 18; TEMP 97.1; O2SAT 96
[2016-11-15] MEDS: methylPREDNISolone SOD SUCC 40 MG/1 ML VIAL IV PUSH SCH (21:14)
[2016-11-15] MEDS: FUROSEMIDE 40 MG TAB PO SCH (21:14)
[2016-11-15] MEDS: BENZONATATE 100 MG CAP PO PRN (21:14)
[2016-11-15] MEDS: ACETAMINOPHEN/HYDROcodone 325 MG/10 MG TAB PO PRN (21:15)
[2016-11-15] MEDS: PANTOPRAZOLE SOD 40 MG DELAYED RELEASE TAB PO SCH (21:15)
[2016-11-15] MEDS: BUDESONIDE-FORMOTEROL 80/4.5 MCG INHALER INH SCH (21:15)
[2016-11-16] VITALS (7 sets, daily range): BP systolic 139–161; BP diastolic 72–99; PULSE 75–97; RESP 17–18; TEMP 97–97.9; O2SAT 92–94
[2016-11-16] MEDS: ACETAMINOPHEN/HYDROcodone 325 MG/10 MG TAB PO PRN ×3 (05:18→20:50)
[2016-11-16] MEDS: methylPREDNISolone SOD SUCC 40 MG/1 ML VIAL IV PUSH SCH ×3 (05:18→22:08)
[2016-11-16] MEDS: RESP: ALBUTEROL 0.63 MG/3 ML NEB (PRN) NEB ×2 (05:23→10:56)
[2016-11-16 06:47] LABS: AUTOMATED NEUTROPHIL # 7.2 TH/MM3 (1.8-7.7); BASOPHIL % 0.2 % (0.0-2.0); EOSINOPHIL % 0.1 % (0.0-4.0); HEMATOCRIT 37.4 % (35.0-46.0); HEMO FLAGS DIFF FINAL; LYMPH % 8.4 % (9.0-44.0); LYMPHOCYTE # 0.7 TH/MM3 (1.0-4.8); MEAN CORPUSCULAR HEMOGLOBIN 29.5 PG (27.0-34.0); MEAN CORPUSCULAR HGB CONC 33.1 % (32.0-36.0); MONO % 2.6 % (0.0-8.0); NEUT % 88.7 % (16.0-70.0); PLATELET COUNT 280 TH/MM3 (150-450); RED BLOOD COUNT 4.21 MIL/MM3 (4.00-5.30); RED CELL DISTRIBUTION WIDTH 14.2 % (11.6-17.2); WHITE BLOOD COUNT 8.1 TH/MM3 (4.0-11.0)
[2016-11-16 06:49] LABS: CHLORIDE 99 MEQ/L (98-107); POTASSIUM 3.4 MEQ/L (3.5-5.1); SODIUM (NA) 141 MEQ/L (136-145)
[2016-11-16 06:57] LABS: ALT (GPT) 36 U/L (10-53); ANION GAP 7 MEQ/L (5-15); AST (GOT) 21 U/L (15-37); BICARBONATE 34.6 MEQ/L (21.0-32.0); BLOOD UREA NITROGEN 16 MG/DL (7-18)
[2016-11-16 06:58] LABS: TOTAL BILIRUBIN ADULT 0.3 MG/DL (0.2-1.0)
[2016-11-16 06:59] LABS: ALKALINE PHOSPHATASE 59 U/L (45-117)
[2016-11-16 07:00] LABS: GLOMERULAR FILTRATION RATE 64 ML/MIN (>89)
[2016-11-16] MEDS: LISINOPRIL 20 MG TAB PO SCH (08:27)
[2016-11-16] MEDS: CALCIUM/VITAMIN D 250 MG/125 U TAB PO SCH (08:27)
[2016-11-16] MEDS: BUDESONIDE-FORMOTEROL 80/4.5 MCG INHALER INH SCH ×2 (08:27→20:47)
[2016-11-16] MEDS: CETIRIZINE HCL 10 MG TAB PO SCH (08:28)
[2016-11-16] MEDS: FUROSEMIDE 40 MG TAB PO SCH ×2 (08:28→20:47)
[2016-11-16] MEDS: FOLIC ACID 1 MG TAB PO SCH (08:28)
[2016-11-16] MEDS: PANTOPRAZOLE SOD 40 MG DELAYED RELEASE TAB PO SCH ×2 (08:28→20:47)
[2016-11-16] MEDS ORDERED: CALCIUM/VITAMIN D 250 MG/125 U TAB PO SCH (09:00)
[2016-11-16] MEDS ORDERED: PRAVASTATIN SOD 80 MG TAB PO SCH (09:00)
[2016-11-16] MEDS ORDERED: LEFLUNOMIDE 20 MG PO SCH (09:00)
[2016-11-16] MEDS ORDERED: IPRASOL INH (11:15)
[2016-11-16] MEDS: RESP: ALBUTEROL 2.5 MG/IPRATROPIUM 0.5 MG NEB (SCH) NEB ×3 (12:00→19:41)
[2016-11-16] MEDS ORDERED: POTASSIUM CHLORIDE 10 MEQ CONTROLLED RELEASE TAB PO ONE (13:30)
[2016-11-16] MEDS: LEVOFLOXACIN 500 MG PREMIX INJ 100 ML IV SCH (13:33)
[2016-11-16] MEDS: BUMETANIDE 1 MG TAB PO SCH (13:36)
[2016-11-16] MEDS: AZITHROMYCIN INJ 500 MG in SODIUM CHLOR 0.9% 250 ML INJ 250 ML IV SCH (13:37)
[2016-11-16] MEDS: ENOXAPARIN SODIUM 40 MG/0.4 ML SYRINGE SQ SCH (13:37)
--- NOTE | 2016-11-16 14:01 | MH ---
cc: KOBY LEONARD MD DATE OF ADMISSION: 11/15/2016 CHIEF COMPLAINT Shortness of breath. HISTORY OF PRESENT ILLNESS This is a 61-year-old female with past medical/surgical history significant for COPD, history of asthma, degenerative disc disease, hypertension, GERD, migraine headaches, cataract surgery and right breast lumpectomy, who came to the ER at [facility] complaining of shortness of breath. She was getting short of breath to the extent that she decided to come to the [facility]. 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 She had two courses of prednisone and antibiotic. Initially she was on Levaquin and most recently on cefdinir. She currently is on 10 mg of prednisone. She is on oxygen 2.5 liters per minute by nasal cannula at home and was getting more and more short of breath and decided to come to [facility]. She also has a wound on the right lower extremity which is not healed yet. She also has leg swelling but does not have any history of congestive heart failure. Other than that nothing significant. PAST MEDICAL/SURGICAL HISTORY As dictated above. SOCIAL HISTORY She denies smoking, drinking, taking any drugs. Lives at home with her significant other. FAMILY HISTORY Significant for coronary artery disease and COPD. ALLERGIES CODEINE. MEDICATIONS 1. Lisinopril 20 mg p.o. daily. 2. Omeprazole 40 mg twice a day. 3. Promethazine 12.5 mg p.o. q.6h. p.r.n. nausea/vomiting. 4. Zyrtec 10 mg p.o. daily. 5. Biotin 5000 mcg sublingual daily. 6. Furosemide 40 mg twice a day. 7. Folic acid 800 mg p.o. daily. 8. Vitamin-D with vitamin-C p.o. daily. 9. [place] 10/325 p.o. q.6h. p.r.n. pain. 10.Leflunomide 20 mg p.o. daily. 11.Symbicort 80/4.5, two puffs inhalation q.12h. 12.Albuterol nebulization 0.63 q.i.d. 13.Zocor 40 mg p.o. daily. 14.Prednisone 10 mg p.o. daily. REVIEW OF SYSTEMS Positive for cough, congestion, wheezing, shortness of breath, and wound on the right lower extremity. All other review of systems is negative. PHYSICAL EXAMINATION GENERAL: This is a 61-year-old female sitting on the bed not in acute distress. VITAL SIGNS: Temperature 97.3, heart rate 75, respirations 18, blood pressure 143/77, O2 saturation 93% on 2.5 liters of oxygen by nasal cannula. HEENT: Normocephalic. EOMI. PERRL. Oral mucosa moist. NECK: Supple. No visible thyromegaly or neck mass. Trachea is central. CV: Regular rate and rhythm. LUNGS: Respirations with bilateral crackles and wheezing. ABDOMEN: Soft, nontender. Bowel sounds audible. EXTREMITIES: +1 pitting edema bilateral lower extremities. Also wound on the right lower extremity. PSYCHIATRIC: The patient is cooperative. Mood and affect is normal. SKIN: Wound on the right lower extremity. LABORATORY CBC and differential is unremarkable except for neutrophils 88.7%, lymphocytes 8.4 low. CMP is unremarkable except for potassium 3.4 low, carbon dioxide 34.6 high, GFR 64 low, glucose 232 high, albumin 3.1 low. LFTs are normal. BNP 24. Urine examination shows small occult blood, 20-40 RBC in the urine. IMAGING Chest x-ray done shows no acute disease. ASSESSMENT AND PLAN This is a 61-year-old female who came to the ER diagnosed with: 1. Shortness of breath secondary to COPD, asthma exacerbation. The patient is on Levaquin 500 mg IV daily and also Solu-Medrol 40 mg IV q.8h. and DuoNeb nebulization. Pulmonary consulted. Further recommendation per pulmonary. 2. History of hypertension. Continue home medications. 3. History of GERD. Protonix 40 mg p.o. daily. 4. History of leg edema. Discontinue furosemide 40 mg twice a day. Start Bumex 1 mg p.o. daily. 5. Arthritis. Continue home medication. 6. History of COPD. Continue home medication. 7. History of hyperlipidemia. Continue Zocor 40 mg p.o. daily. 8. Hypokalemia. Will replace potassium. 9. Hyperglycemia. Will monitor blood sugar. The patient does not have any history of diabetes mellitus. I will check hemoglobin A1c. 10. DVT prophylaxis. Lovenox 40 mg subcutaneous daily. 11. GI prophylaxis. Protonix 40 mg p.o. daily. 12. Right lower extremity wound. Will consult the wound care management. 13. We are going to manage the patient on a daily basis and make recommendation on a daily basis. Koby Leonard MD EA/ALLYN /1:12 PM /1:27 PM
--- NOTE | 2016-11-16 18:27 | MB ---
cc: SHADI BATEMAN DATE OF CONSULTATION 11/16/[address] Koby Lopez REASON FOR CONSULTATION COPD exacerbation. HISTORY OF PRESENT ILLNESS Ms. Hu is a pleasant 61-year-old female who has a longstanding history of COPD and asthma. She is steroid dependent, takes prednisone 10 mg a day and uses oxygen all the time. She has multiple admissions in the hospital. She is not feeling well for at least one month. She saw Dr. Hooks and was given a course of steroid and antibiotic with Levaquin. She did not get better. Two weeks later, she got another course of antibiotic Cefdinir and prednisone. She did not get better and decided to come to the emergency room. She has cough, congestion. No fever or chills. No night sweats. No nausea or vomiting. She was worked up in the hospital. She had a chest x-ray done which shows no acute infiltrate. CBC showed WBC count 8.1, hemoglobin 12.4, hematocrit 37.4, MCV 89, platelet count 280, sodium 141, potassium 3.4, chloride 99, CO2 34, BUN 16, creatinine 0.81. PAST MEDICAL HISTORY 1. History of COPD with asthma with multiple exacerbations 2. History of MRSA infection in the past. 3. Degenerative disk disease, 4. Gastroesophageal reflux disease, 5. Migraine 6. History of lumpectomy. MEDICATIONS Currently - 1. Pravastatin 40 mg a day 2. Zithromax 500 mg a day 3. Lovenox 40 mg a day 4. Bumex 1 mg daily. 5. Levaquin 500 mg a day 6. Albuterol/Atrovent nebulizer treatment 7. Zyrtec 10 mg. 8. Lisinopril 20 mg a day. 9. Folic acid 1 mg a day. 10. Solu-Medrol 40 mg q.8 h. 11. Symbicort 2 puffs twice a day. 12. Lasix 40 mg twice a day. 13. Protonix 40 mg a day. 14. [place] for pain 15. Tessalon 200 mg three times a day. ALLERGIES CODEINE SOCIAL HISTORY She is single but lived with her ex for 26 years but never . She has history of smoking which she quit. No alcohol use. 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 FAMILY HISTORY She has five children, one at age 5 days because of prematurity. Another one at age 5 weeks because of crib . REVIEW OF SYSTEMS The patient barely walks inside the house, gets short of breath. She has gained weight, has skin easy bruising. No seizure, stroke or epilepsy. No of DVT or pulmonary embolism, no malignancy. PHYSICAL EXAMINATION GENERAL: Well-developed, well-nourished female mildly short of breath. VITAL SIGNS: Blood pressure 139/72, heart rate 79, respirations 17, temperature 97.6 HEENT: Pupils are equal and reactive to light. Oral mucosa and nasal mucosa normal. NECK: Supple. JVP not raised. CHEST: Equal bilaterally. She has expiratory rhonchi. CARDIOVASCULAR: S1, S2 normal. ABDOMEN: Soft, nondistended. Bowel sounds present EXTREMITIES: She has edema, has a sore on the right leg and has bruises on the skin OPERATIONS ADVISOR: She is alert and oriented times three, no focal deficit. IMPRESSION 1. COPD with exacerbation. She has frequent exacerbations, is steroid and oxygen dependent. 2. Bronchitis. 3. Degenerative disk disease. 4. Chronic pain 5. Gastroesophageal reflux disease. PLAN We will continue antibiotic Rocephin, Zithromax, IV Solu-Medrol and wean from the by mouth steroid as she tolerates. Monitor her electrolytes and blood sugar. She is being diuresed. Supplement her oxygen. Further treatment will depend on the course in the hospital. Thank you, Dr. Koby Lopez, for this consultation. MD HAYLEY Harrison/ /4:53 PM /6:12 PM
[2016-11-16] MEDS: PRAVASTATIN SOD 40 MG TAB PO SCH (20:47)
[2016-11-17] VITALS (8 sets, daily range): BP systolic 99–146; BP diastolic 72–95; PULSE 70–93; RESP 17–22; TEMP 96.4–97.8; O2SAT 92–96
[2016-11-17] MEDS: RESP: ALBUTEROL 2.5 MG/IPRATROPIUM 0.5 MG NEB (SCH) NEB ×7 (00:24→23:09)
[2016-11-17] MEDS: methylPREDNISolone SOD SUCC 40 MG/1 ML VIAL IV PUSH SCH ×3 (06:27→22:01)
[2016-11-17] MEDS: ACETAMINOPHEN/HYDROcodone 325 MG/10 MG TAB PO PRN ×3 (06:29→19:30)
--- NOTE | 2016-11-17 06:48 | HHI.PR ---
Subjective History of Present Illness Patient still have SOB Cough and wheezing but getting better still have leg swelling. D/W RN Danette. Review of Systems Constitutional Constitutional: Fatigue, Weakness Pulmonary Respiratory: Coughing, Shortness of Breath, Wheezing Cardiology CV Remarks leg edema. Integumentary Skin Remarks wound right lower extremity. Vitals/Results Intake & Output 11/16/16 11/16/16 11/17/16 15:00 23:00 07:00 Intake Total 350 ml 0 ml Balance 350 ml 0 ml IV Total 350 ml 0 ml # Voids 1 4 Vital Signs Vital Signs Date Time Temp Pulse Resp B/P Pulse Ox O2 Delivery O2 Flow Rate FiO2 11/17/16 06:29 96 Nasal Cannula 2.50 11/17/16 00:28 96.4 70 20 99/73 94 11/16/16 20:41 97.0 97 18 161/99 93 11/16/16 20:00 93 Nasal Cannula 2.50 11/16/16 19:41 93 Nasal Cannula 2.50 11/16/16 16:00 97.2 96 18 142/91 94 11/16/16 12:00 97.6 79 17 139/72 93 11/16/16 10:57 93 Nasal Cannula 2.50 11/16/16 08:20 97 2.50 11/16/16 08:00 97.3 75 18 143/77 92 CBC/BMP: 11/16/16 0525 11/16/16 0525 Physical Exam General General Appearance: Well Developed, Well Nourished, No Acute Distress, Comfortable Eyes Eye Exam: Pupils Equal, Pupils Reactive, Sclera White, Extraocular Movement Intact Throat Throat Exam: Oral Mucosa [place] & Moist, Oral Pharynx Normal Neck Neck Exam: Neck Supple, Trachea Midline Pulmonary Resp Remarks Bilateral wheezing. Cardiology CV Exam: Regular, Normal Sinus Rhythm Gastrointestinal/Abdomen GI Exam: Soft, Non-Tender, Bowel Sounds Present Musculoskeletal MS Exam: Normal Tone Integumentary Skin Exam: Warm, Dry Skin Remarks wound right lower extremity. Extremeties Extremities Exam: Pitting Edema Neurologic Neuro Exam: Alert, Awake, Oriented, Speech Clear, Moving All Extremities, No Focal Deficits VTE Prophylaxis VTE Prophylaxis Meds: Lovenox PUD Prophylasis PUD Prophylaxis: Protonix Assessment/Plan Assessment/Plan ASSESSMENT AND PLAN This is a 61-year-old female who came to the ER diagnosed with: 1. Shortness of breath secondary to COPD, asthma exacerbation. The patient is on Levaquin 500 mg IV daily and Zithromax 500 g IV Daily. and also Solu- Medrol 40 mg IV q.8h. and DuoNeb nebulization. Pulmonary consulted. Further recommendation per pulmonary. 2. History of hypertension. Continue home medications. 3. History of GERD. Protonix 40 mg p.o. daily. 4. History of leg edema. on Bumex 1 mg p.o. daily. add lasix 40 mg IV Daily. 5. Arthritis. Continue home medication. 6. History of COPD. Continue home medication. 7. History of hyperlipidemia. Continue Zocor 40 mg p.o. daily. 8. Hypokalemia. Will replace potassium. 9. Hyperglycemia. Will monitor blood sugar. The patient does not have any history of diabetes mellitus. check hemoglobin A1c. 10. DVT prophylaxis. Lovenox 40 mg subcutaneous daily. 11. GI prophylaxis. Protonix 40 mg p.o. daily. 12. Right lower extremity wound. Will consult the wound care management. 13. We are going to manage the patient on a daily basis and make recommendation on a daily basis. Check CBC with diff CMP in AM. Discussed Condition with: Patient Koby Lopez MD Nov 17, 2016 06:48
[2016-11-17 07:27] LABS: AUTOMATED NEUTROPHIL # 10.9 TH/MM3 (1.8-7.7); BASOPHIL % 0.2 % (0.0-2.0); EOSINOPHIL % 0.1 % (0.0-4.0); LYMPH % 6.8 % (9.0-44.0); LYMPHOCYTE # 0.8 TH/MM3 (1.0-4.8); MEAN CELL VOLUME 88.5 FL (80.0-100.0); MEAN CORPUSCULAR HEMOGLOBIN 28.6 PG (27.0-34.0); MEAN CORPUSCULAR HGB CONC 32.3 % (32.0-36.0); MONO % 4.2 % (0.0-8.0); NEUT % 88.7 % (16.0-70.0); PLATELET COUNT 277 TH/MM3 (150-450); RED BLOOD COUNT 4.06 MIL/MM3 (4.00-5.30); RED CELL DISTRIBUTION WIDTH 14.1 % (11.6-17.2); WHITE BLOOD COUNT 12.2 TH/MM3 (4.0-11.0)
[2016-11-17 07:31] LABS: HEMO FLAGS DIFF FINAL
[2016-11-17 07:38] LABS: BICARBONATE 33.3 MEQ/L (21.0-32.0)
[2016-11-17 07:39] LABS: ANION GAP 9 MEQ/L (5-15); BLOOD UREA NITROGEN 20 MG/DL (7-18); CHLORIDE 103 MEQ/L (98-107); POTASSIUM 3.8 MEQ/L (3.5-5.1); SODIUM (NA) 145 MEQ/L (136-145)
[2016-11-17 07:41] LABS: ALT (GPT) 28 U/L (10-53); AST (GOT) 15 U/L (15-37)
[2016-11-17 07:42] LABS: GLOMERULAR FILTRATION RATE 70 ML/MIN (>89)
[2016-11-17 07:43] LABS: TOTAL BILIRUBIN ADULT 0.5 MG/DL (0.2-1.0)
[2016-11-17 07:44] LABS: ALKALINE PHOSPHATASE 48 U/L (45-117)
[2016-11-17] MEDS: PANTOPRAZOLE SOD 40 MG DELAYED RELEASE TAB PO SCH ×2 (09:07→22:01)
[2016-11-17] MEDS: FUROSEMIDE 40 MG/4 ML VIAL IV PUSH SCH (09:07)
[2016-11-17] MEDS: FOLIC ACID 1 MG TAB PO SCH (09:07)
[2016-11-17] MEDS: CETIRIZINE HCL 10 MG TAB PO SCH (09:07)
[2016-11-17] MEDS: BENZONATATE 100 MG CAP PO PRN (09:07)
[2016-11-17] MEDS: LISINOPRIL 20 MG TAB PO SCH (09:07)
[2016-11-17] MEDS: BUDESONIDE-FORMOTEROL 80/4.5 MCG INHALER INH SCH ×2 (09:08→22:02)
[2016-11-17] MEDS: BUMETANIDE 1 MG TAB PO SCH (09:08)
[2016-11-17] MEDS: CALCIUM/VITAMIN D 250 MG/125 U TAB PO SCH (09:08)
[2016-11-17] MEDS: ENOXAPARIN SODIUM 40 MG/0.4 ML SYRINGE SQ SCH (13:11)
[2016-11-17] MEDS: LEVOFLOXACIN 500 MG PREMIX INJ 100 ML IV SCH (13:11)
[2016-11-17] MEDS: AZITHROMYCIN INJ 500 MG in SODIUM CHLOR 0.9% 250 ML INJ 250 ML IV SCH (13:12)
[2016-11-17] MEDS: PRAVASTATIN SOD 40 MG TAB PO SCH (22:01)
[2016-11-18] VITALS (7 sets, daily range): BP systolic 111–184; BP diastolic 63–86; PULSE 69–126; RESP 18–24; TEMP 96.7–97.7; O2SAT 92–96
[2016-11-18] MEDS: RESP: ALBUTEROL 2.5 MG/IPRATROPIUM 0.5 MG NEB (SCH) NEB ×5 (03:11→19:40)
[2016-11-18] MEDS: methylPREDNISolone SOD SUCC 40 MG/1 ML VIAL IV PUSH SCH ×3 (06:25→22:10)
[2016-11-18] MEDS: ACETAMINOPHEN/HYDROcodone 325 MG/10 MG TAB PO PRN ×3 (06:33→20:19)
[2016-11-18 07:32] LABS: AUTOMATED NEUTROPHIL # 8.2 TH/MM3 (1.8-7.7); BASOPHIL % 0.4 % (0.0-2.0); HEMATOCRIT 34.2 % (35.0-46.0); HEMO FLAGS DIFF FINAL; LYMPH % 5.1 % (9.0-44.0); LYMPHOCYTE # 0.5 TH/MM3 (1.0-4.8); MEAN CELL VOLUME 87.5 FL (80.0-100.0); MEAN CORPUSCULAR HEMOGLOBIN 28.7 PG (27.0-34.0); MEAN CORPUSCULAR HGB CONC 32.8 % (32.0-36.0); NEUT % 87.5 % (16.0-70.0); PLATELET COUNT 270 TH/MM3 (150-450); RED BLOOD COUNT 3.91 MIL/MM3 (4.00-5.30); RED CELL DISTRIBUTION WIDTH 13.9 % (11.6-17.2); WHITE BLOOD COUNT 9.4 TH/MM3 (4.0-11.0)
[2016-11-18 07:37] LABS: CHLORIDE 100 MEQ/L (98-107); POTASSIUM 3.4 MEQ/L (3.5-5.1); SODIUM (NA) 144 MEQ/L (136-145)
[2016-11-18 07:42] LABS: ANION GAP 8 MEQ/L (5-15); BICARBONATE 35.6 MEQ/L (21.0-32.0); BLOOD UREA NITROGEN 23 MG/DL (7-18)
[2016-11-18 07:45] LABS: ALT (GPT) 29 U/L (10-53); AST (GOT) 14 U/L (15-37); GLOMERULAR FILTRATION RATE 64 ML/MIN (>89)
[2016-11-18 07:46] LABS: TOTAL BILIRUBIN ADULT 0.2 MG/DL (0.2-1.0)
[2016-11-18 07:48] LABS: ALKALINE PHOSPHATASE 47 U/L (45-117)
[2016-11-18] MEDS: PANTOPRAZOLE SOD 40 MG DELAYED RELEASE TAB PO SCH ×2 (09:29→20:18)
[2016-11-18] MEDS: CETIRIZINE HCL 10 MG TAB PO SCH (09:29)
[2016-11-18] MEDS: CALCIUM/VITAMIN D 250 MG/125 U TAB PO SCH (09:29)
[2016-11-18] MEDS: BUMETANIDE 1 MG TAB PO SCH (09:29)
[2016-11-18] MEDS: FUROSEMIDE 40 MG/4 ML VIAL IV PUSH SCH (09:30)
[2016-11-18] MEDS: LISINOPRIL 20 MG TAB PO SCH (09:30)
[2016-11-18] MEDS: FOLIC ACID 1 MG TAB PO SCH (09:30)
[2016-11-18] MEDS: BUDESONIDE-FORMOTEROL 80/4.5 MCG INHALER INH SCH ×2 (09:31→20:20)
[2016-11-18] MEDS: AZITHROMYCIN INJ 500 MG in SODIUM CHLOR 0.9% 250 ML INJ 250 ML IV SCH (12:29)
[2016-11-18] MEDS: LEVOFLOXACIN 500 MG PREMIX INJ 100 ML IV SCH (12:29)
[2016-11-18] MEDS: ENOXAPARIN SODIUM 40 MG/0.4 ML SYRINGE SQ SCH (12:30)
--- NOTE | 2016-11-18 18:13 | HHI.PR ---
Subjective Remarks 61 YOWFw ith COPD exac, Bronchitis Breathing better On 02 3LNC No fever Objective Vital Signs Vital Signs Date Time Temp Pulse Resp B/P Pulse Ox O2 Delivery O2 Flow Rate FiO2 11/18/16 16:00 97.4 95 18 151/72 92 11/18/16 13:30 20 11/18/16 12:00 97.7 69 18 115/81 93 11/18/16 08:00 97.6 75 18 111/63 92 11/18/16 08:00 93 Nasal Cannula 2.50 11/18/16 07:51 95 Nasal Cannula 2.20 11/18/16 00:40 97.0 126 24 184/86 93 11/17/16 20:29 97.7 93 22 146/95 92 11/17/16 20:00 92 Nasal Cannula 2.50 11/17/16 19:05 93 Nasal Cannula 2.50 I/O 11/17/16 11/17/16 11/17/16 11/18/16 11/18/16 11/18/16 07:00 15:00 23:00 07:00 15:00 23:00 Intake Total 0 ml 240 ml Balance 0 ml 240 ml Intake Oral 240 ml IV Total 0 ml # Voids 4 2 1 4 Result Diagram: 11/18/1661611/18/16 0617 Objective Remarks GENERAL: WBWN WF, mild sob SKIN: Warm and dry. HEAD: Normocephalic. EYES: No scleral icterus. No injection or drainage. NECK: Supple, trachea midline. No JVD or lymphadenopathy. CARDIOVASCULAR: Regular rate and rhythm without murmurs, gallops, or rubs. RESPIRATORY: Breath sounds equal bilaterally. No accessory muscle use. End exp rhonchi MUSCULOSKELETAL: No cyanosis, or edema. BACK: Nontender without obvious deformity. No CVA tenderness. A/P Assessment and Plan COPD Exac bronchial asthma Bronchitis DJD ch pain GERD PLAN: IV Solumedrol Aerosol nebs Supplement 02 Acapella Cont Isrrael Hester MD Nov 18, 2016 18:12
[2016-11-18] MEDS: PRAVASTATIN SOD 40 MG TAB PO SCH (20:19)
[2016-11-19] VITALS (7 sets, daily range): BP systolic 107–141; BP diastolic 71–78; PULSE 59–92; RESP 18–22; TEMP 97.2–98.2; O2SAT 92–96
[2016-11-19] MEDS: RESP: ALBUTEROL 2.5 MG/IPRATROPIUM 0.5 MG NEB (SCH) NEB ×7 (03:51→23:18)
[2016-11-19] MEDS: methylPREDNISolone SOD SUCC 40 MG/1 ML VIAL IV PUSH SCH ×3 (05:46→20:33)
[2016-11-19] MEDS: ACETAMINOPHEN/HYDROcodone 325 MG/10 MG TAB PO PRN ×4 (05:47→23:31)
--- NOTE | 2016-11-19 08:13 | HHI.PR ---
Subjective History of Present Illness Patient seen on 11/18 16 still have SOB Cough and wheezing but getting better still have leg swelling. Review of Systems Constitutional Constitutional: Fatigue, Weakness Pulmonary Respiratory: Coughing, Shortness of Breath, Wheezing Cardiology CV Remarks leg edema. Integumentary Skin Remarks wound right lower extremity. Vitals/Results Intake & Output 11/18/16 11/18/16 11/19/16 15:00 23:00 07:00 Intake Total 0 ml 0 ml Balance 0 ml 0 ml IV Total 0 ml 0 ml # Voids 4 2 Vital Signs Vital Signs Date Time Temp Pulse Resp B/P Pulse Ox O2 Delivery O2 Flow Rate FiO2 11/19/16 07:21 95 Nasal Cannula 2.50 11/19/16 00:45 97.7 59 20 122/76 93 11/18/16 20:57 96.7 74 18 115/72 92 11/18/16 20:00 94 Nasal Cannula 2.50 11/18/16 19:42 96 Nasal Cannula 2.50 11/18/16 16:00 97.4 95 18 151/72 92 11/18/16 13:30 20 11/18/16 12:00 97.7 69 18 115/81 93 CBC/BMP: 11/18/16 0617 11/18/16 0617 Physical Exam General General Appearance: Well Developed, Well Nourished, No Acute Distress, Comfortable Eyes Eye Exam: Pupils Equal, Pupils Reactive, Sclera White, Extraocular Movement Intact Throat Throat Exam: Oral Mucosa [place] & Moist, Oral Pharynx Normal Neck Neck Exam: Neck Supple, Trachea Midline Pulmonary Resp Remarks Bilateral wheezing. Cardiology CV Exam: Regular, Normal Sinus Rhythm Gastrointestinal/Abdomen GI Exam: Soft, Non-Tender, Bowel Sounds Present Musculoskeletal MS Exam: Normal Tone Integumentary Skin Exam: Warm, Dry Skin Remarks wound right lower extremity. Extremeties Extremities Exam: Pitting Edema Neurologic Neuro Exam: Alert, Awake, Oriented, Speech Clear, Moving All Extremities, No Focal Deficits VTE Prophylaxis VTE Prophylaxis Meds: Lovenox PUD Prophylasis PUD Prophylaxis: Protonix Assessment/Plan Assessment/Plan ASSESSMENT AND PLAN This is a 61-year-old female who came to the ER diagnosed with: 1. Shortness of breath secondary to COPD, asthma exacerbation. The patient is on Levaquin 500 mg IV daily and Zithromax 500 g IV Daily. and also Solu- Medrol 40 mg IV q.8h. and DuoNeb nebulization. Pulmonary consulted. Further recommendation per pulmonary. 2. History of hypertension. Continue home medications. 3. History of GERD. Protonix 40 mg p.o. daily. 4. History of leg edema. on Bumex 1 mg p.o. daily. add lasix 40 mg IV Daily. 5. Arthritis. Continue home medication. 6. History of COPD. Continue home medication. 7. History of hyperlipidemia. Continue Zocor 40 mg p.o. daily. 8. Hypokalemia. Will replace potassium. 9. Hyperglycemia. Will monitor blood sugar. The patient does not have any history of diabetes mellitus. checked hemoglobin A1c. 10. DVT prophylaxis. Lovenox 40 mg subcutaneous daily. 11. GI prophylaxis. Protonix 40 mg p.o. daily. 12. Right lower extremity wound. wound care management. 13. We are going to manage the patient on a daily basis and make recommendation on a daily basis. Check CBC with diff CMP in AM. Discussed Condition with: Patient Koby Lopez MD November 19, 2016 08:12
--- NOTE | 2016-11-19 08:14 | HHI.PR ---
Subjective History of Present Illness Patient still have SOB Cough and wheezing but getting better still have leg swelling. check venous doppler of lower extremity. low potassium will replace. Review of Systems Constitutional Constitutional: Fatigue, Weakness Pulmonary Respiratory: Coughing, Shortness of Breath, Wheezing Cardiology CV Remarks leg edema. Integumentary Skin Remarks wound right lower extremity. Vitals/Results Intake & Output 11/18/16 11/18/16 11/19/16 15:00 23:00 07:00 Intake Total 0 ml 0 ml Balance 0 ml 0 ml IV Total 0 ml 0 ml # Voids 4 2 Vital Signs Vital Signs Date Time Temp Pulse Resp B/P Pulse Ox O2 Delivery O2 Flow Rate FiO2 11/19/16 07:21 95 Nasal Cannula 2.50 11/19/16 00:45 97.7 59 20 122/76 93 11/18/16 20:57 96.7 74 18 115/72 92 11/18/16 20:00 94 Nasal Cannula 2.50 11/18/16 19:42 96 Nasal Cannula 2.50 11/18/16 16:00 97.4 95 18 151/72 92 11/18/16 13:30 20 11/18/16 12:00 97.7 69 18 115/81 93 CBC/BMP: 11/18/16 0617 11/18/16 0617 Physical Exam General General Appearance: Well Developed, Well Nourished, No Acute Distress, Comfortable Eyes Eye Exam: Pupils Equal, Pupils Reactive, Sclera White, Extraocular Movement Intact Throat Throat Exam: Oral Mucosa [place] & Moist, Oral Pharynx Normal Neck Neck Exam: Neck Supple, Trachea Midline Pulmonary Resp Remarks Bilateral wheezing. Cardiology CV Exam: Regular, Normal Sinus Rhythm Gastrointestinal/Abdomen GI Exam: Soft, Non-Tender, Bowel Sounds Present Musculoskeletal MS Exam: Normal Tone Integumentary Skin Exam: Warm, Dry Skin Remarks wound right lower extremity. Extremeties Extremities Exam: Pitting Edema Neurologic Neuro Exam: Alert, Awake, Oriented, Speech Clear, Moving All Extremities, No Focal Deficits VTE Prophylaxis VTE Prophylaxis Meds: Lovenox PUD Prophylasis PUD Prophylaxis: Protonix Assessment/Plan Assessment/Plan ASSESSMENT AND PLAN This is a 61-year-old female who came to the ER diagnosed with: 1. Shortness of breath secondary to COPD, asthma exacerbation. The patient is on Levaquin 500 mg IV daily and Zithromax 500 g IV Daily. and also Solu- Medrol 40 mg IV q.8h. and DuoNeb nebulization. Pulmonary consulted. Further recommendation per pulmonary. 2. History of hypertension. Continue home medications. 3. History of GERD. Protonix 40 mg p.o. daily. 4. History of leg edema. on Bumex 1 mg p.o. daily. continue with lasix 40 mg IV Daily.check venous doppler of lower extremity to r/o DVT. 5. Arthritis. Continue home medication. 6. History of COPD. Continue home medication. 7. History of hyperlipidemia. Continue Zocor 40 mg p.o. daily. 8. Hypokalemia. Will replace potassium. 9. Hyperglycemia. Will monitor blood sugar. The patient does not have any history of diabetes mellitus. checked hemoglobin A1c. 10. DVT prophylaxis. Lovenox 40 mg subcutaneous daily. 11. GI prophylaxis. Protonix 40 mg p.o. daily. 12. Right lower extremity wound. wound care management. 13. We are going to manage the patient on a daily basis and make recommendation on a daily basis. Check CBC with diff CMP in AM. Discussed Condition with: Patient Koby Lopez MD November 19, 2016 08:14
[2016-11-19] MEDS: CETIRIZINE HCL 10 MG TAB PO SCH (09:03)
[2016-11-19] MEDS: FUROSEMIDE 40 MG/4 ML VIAL IV PUSH SCH (09:04)
[2016-11-19] MEDS: LISINOPRIL 20 MG TAB PO SCH (09:04)
[2016-11-19] MEDS: BUMETANIDE 1 MG TAB PO SCH (09:04)
[2016-11-19] MEDS: CALCIUM/VITAMIN D 250 MG/125 U TAB PO SCH (09:04)
[2016-11-19] MEDS: BUDESONIDE-FORMOTEROL 80/4.5 MCG INHALER INH SCH ×2 (09:04→20:32)
[2016-11-19] MEDS: FOLIC ACID 1 MG TAB PO SCH (09:04)
[2016-11-19] MEDS: PANTOPRAZOLE SOD 40 MG DELAYED RELEASE TAB PO SCH ×2 (09:04→20:33)
[2016-11-19] MEDS: LEVOFLOXACIN 500 MG PREMIX INJ 100 ML IV SCH (12:31)
[2016-11-19] MEDS: AZITHROMYCIN INJ 500 MG in SODIUM CHLOR 0.9% 250 ML INJ 250 ML IV SCH (12:31)
[2016-11-19] MEDS: ENOXAPARIN SODIUM 40 MG/0.4 ML SYRINGE SQ SCH (12:31)
[2016-11-19 14:00] LABS: HEMOGLOBIN A1b 2.5 %; HEMOGLOBIN Ao 81.8 %; HEMOGLOBIN LA1C 1.9 %; HEMOGLOBIN P3 4.4 %
--- NOTE | 2016-11-19 15:58 | RADHPO ---
EXAM DATE/TIME: 11/19/2016 15:29 [place] COMPARISON: No previous studies available for comparison. INDICATIONS : Bilateral leg swelling. MEDICAL HISTORY : Hypercholesterolemia. Chronic obstructive pulmonary disease. Myocardial infarction. Migraines. Hypert ension. Asthma. Dyspnea. GERD. Gall bladder disease. Depression. MRSA. SURGICAL HISTORY : Hysterectomy.Carpal tunnel syndrome. Eye prosthesis. Bilateral cataracts. Right breast cyst removal. Right breast lumpectomy. ENCOUNTER: Initial ACUITY: 1 day PAIN SCORE: 3/10 LOCATION: Bilateral legs. TECHNIQUE: Venous ultrasound of the left and right leg was performed from the inguinal ligament to the proximal calf. Real-time, color Doppler and spectral tracing, compression and augmentation techniques were us ed. FINDINGS: RIGHT LEG: There is normal compressibility of the deep venous system from the inguinal region to the proximal ca lf. No echogenic clot is seen in the lumen of the common femoral, femoral, popliteal, and posterior tibial veins. There is a normal response of the venous system to proximal and distal augmentation an d respiration. LEFT LEG: There is normal compressibility of the deep venous system from the inguinal region to the proximal ca lf. No echogenic clot is seen in the lumen of the common femoral, femoral, popliteal, and posterior tibial veins. There is a normal response of the venous system to proximal and distal augmentation an d respiration. CONCLUSION: Normal examination. Merlin Colon MD on November 19, 2016 at 15:55 Board Certified Radiologist. This report was verified electronically.
[2016-11-19] MEDS: PRAVASTATIN SOD 40 MG TAB PO SCH (20:33)
[2016-11-20] VITALS (7 sets, daily range): BP systolic 100–146; BP diastolic 66–79; PULSE 80–90; RESP 18–20; TEMP 96.8–97.9; O2SAT 92–96
[2016-11-20] MEDS: RESP: ALBUTEROL 2.5 MG/IPRATROPIUM 0.5 MG NEB (SCH) NEB ×6 (03:45→23:23)
[2016-11-20] MEDS: methylPREDNISolone SOD SUCC 40 MG/1 ML VIAL IV PUSH SCH ×2 (06:28→13:44)
[2016-11-20] MEDS: ACETAMINOPHEN/HYDROcodone 325 MG/10 MG TAB PO PRN ×3 (06:28→18:47)
[2016-11-20 06:32] LABS: AUTOMATED NEUTROPHIL # 8.4 TH/MM3 (1.8-7.7); BASOPHIL % 0.1 % (0.0-2.0); EOSINOPHIL % 0.5 % (0.0-4.0); HEMATOCRIT 37.5 % (35.0-46.0); HEMO FLAGS DIFF FINAL; LYMPH % 6.3 % (9.0-44.0); LYMPHOCYTE # 0.6 TH/MM3 (1.0-4.8); MEAN CELL VOLUME 86.6 FL (80.0-100.0); MEAN CORPUSCULAR HEMOGLOBIN 27.4 PG (27.0-34.0); MEAN CORPUSCULAR HGB CONC 31.6 % (32.0-36.0); MONO % 6.5 % (0.0-8.0); NEUT % 86.6 % (16.0-70.0); PLATELET COUNT 297 TH/MM3 (150-450); RED BLOOD COUNT 4.33 MIL/MM3 (4.00-5.30); RED CELL DISTRIBUTION WIDTH 13.8 % (11.6-17.2); WHITE BLOOD COUNT 9.6 TH/MM3 (4.0-11.0)
[2016-11-20 06:44] LABS: CHLORIDE 96 MEQ/L (98-107); POTASSIUM 3.5 MEQ/L (3.5-5.1); SODIUM (NA) 141 MEQ/L (136-145)
[2016-11-20 06:51] LABS: ANION GAP 9 MEQ/L (5-15); BICARBONATE 36.1 MEQ/L (21.0-32.0); BLOOD UREA NITROGEN 25 MG/DL (7-18)
[2016-11-20 06:53] LABS: ALT (GPT) 32 U/L (10-53); AST (GOT) 15 U/L (15-37)
[2016-11-20 06:54] LABS: GLOMERULAR FILTRATION RATE 69 ML/MIN (>89)
[2016-11-20 06:55] LABS: TOTAL BILIRUBIN ADULT 0.4 MG/DL (0.2-1.0)
[2016-11-20 06:56] LABS: ALKALINE PHOSPHATASE 43 U/L (45-117)
--- NOTE | 2016-11-20 08:33 | HHI.PR ---
Subjective History of Present Illness Patient still have SOB Cough and wheezing but getting better still have leg swelling. checked venous doppler of lower extremity...negative for DVT.. low potassium resolved. c/o Oral Thrush start Nystatin 5 mg PO QID. Review of Systems Constitutional Constitutional: Fatigue, Weakness Throat Throat Remarks oral thrush. Pulmonary Respiratory: Coughing, Shortness of Breath, Wheezing Cardiology CV Remarks leg edema. Integumentary Skin Remarks wound right lower extremity. Vitals/Results Intake & Output 11/19/16 11/19/16 11/20/16 15:00 23:00 07:00 Intake Total 850 ml 50 ml Balance 850 ml 50 ml Intake Oral 850 ml 50 ml # Voids 5 # Bowel Movements 0 Vital Signs Vital Signs Date Time Temp Pulse Resp B/P Pulse Ox O2 Delivery O2 Flow Rate FiO2 11/20/16 08:08 Nasal Cannula 2.00 11/20/16 07:49 96 Nasal Cannula 2.50 11/20/16 00:00 97.7 80 18 100/70 96 11/19/16 21:48 94 Nasal Cannula 2.00 11/19/16 20:00 97.8 86 18 107/77 96 11/19/16 19:09 94 Nasal Cannula 2.50 11/19/16 18:18 18 11/19/16 16:00 98.2 91 20 121/72 93 11/19/16 12:00 98.0 85 20 123/71 92 11/19/16 10:56 Nasal Cannula 2.50 CBC/BMP: 11/20/16 0600 11/20/16 0600 Lab Results Laboratory Tests Test 11/20/16 06:00 White Blood Count 9.6 TH/MM3 Red Blood Count 4.33 MIL/MM3 Hemoglobin 11.9 GM/DL Hematocrit 37.5 % Mean Corpuscular Volume 86.6 FL Mean Corpuscular Hemoglobin 27.4 PG Mean Corpuscular Hemoglobin 31.6 % Concent Red Cell Distribution Width 13.8 % Platelet Count 297 TH/MM3 Mean Platelet Volume 8.1 FL Neutrophils (%) (Auto) 86.6 % Lymphocytes (%) (Auto) 6.3 % Monocytes (%) (Auto) 6.5 % Eosinophils (%) (Auto) 0.5 % Basophils (%) (Auto) 0.1 % Neutrophils # (Auto) 8.4 TH/MM3 Lymphocytes # (Auto) 0.6 TH/MM3 Monocytes # (Auto) 0.6 TH/MM3 Eosinophils # (Auto) 0.0 TH/MM3 Basophils # (Auto) 0.0 TH/MM3 CBC Comment DIFF FINAL Differential Comment Sodium Level 141 MEQ/L Potassium Level 3.5 MEQ/L Chloride Level 96 MEQ/L Carbon Dioxide Level 36.1 MEQ/L Anion Gap 9 MEQ/L Blood Urea Nitrogen 25 MG/DL Creatinine 0.84 MG/DL Estimat Glomerular Filtration 69 ML/MIN Rate Random Glucose 201 MG/DL Calcium Level 8.7 MG/DL Total Bilirubin 0.4 MG/DL Aspartate Amino Transf 15 U/L (AST/SGOT) Alanine Aminotransferase 32 U/L (ALT/SGPT) Alkaline Phosphatase 43 U/L Total Protein 6.0 GM/DL Albumin 2.8 GM/DL Physical Exam General General Appearance: Well Developed, Well Nourished, No Acute Distress, Comfortable Eyes Eye Exam: Pupils Equal, Pupils Reactive, Sclera White, Extraocular Movement Intact Throat Throat Exam: Oral Mucosa [place] & Moist Throat Remarks Oral Thrush. Neck Neck Exam: Neck Supple, Trachea Midline Pulmonary Resp Remarks Bilateral wheezing. Cardiology CV Exam: Regular, Normal Sinus Rhythm Gastrointestinal/Abdomen GI Exam: Soft, Non-Tender, Bowel Sounds Present Musculoskeletal MS Exam: Normal Tone Integumentary Skin Exam: Warm, Dry Skin Remarks wound right lower extremity. Extremeties Extremities Exam: Pitting Edema Neurologic Neuro Exam: Alert, Awake, Oriented, Speech Clear, Moving All Extremities, No Focal Deficits VTE Prophylaxis VTE Prophylaxis Meds: Lovenox PUD Prophylasis PUD Prophylaxis: Protonix Assessment/Plan Assessment/Plan ASSESSMENT AND PLAN This is a 61-year-old female who came to the ER diagnosed with: 1. Shortness of breath secondary to COPD, asthma exacerbation. The patient is on Levaquin 500 mg IV daily and Zithromax 500 g IV Daily. and also Solu- Medrol 40 mg IV q.8h. and DuoNeb nebulization. Pulmonary consulted. Further recommendation per pulmonary. 2. History of hypertension. Continue home medications. 3. History of GERD. Protonix 40 mg p.o. daily. 4. History of leg edema. on Bumex 1 mg p.o. daily. continue with lasix 40 mg IV Daily.check venous doppler of lower extremity to r/o DVT. 5. Arthritis. Continue home medication. 6. History of COPD. Continue home medication. 7. History of hyperlipidemia. Continue Zocor 40 mg p.o. daily. 8. Hypokalemia. Will replace potassium. 9. Hyperglycemia. Will monitor blood sugar. The patient does not have any history of diabetes mellitus. checked hemoglobin A1c. 10. DVT prophylaxis. Lovenox 40 mg subcutaneous daily. 11. GI prophylaxis. Protonix 40 mg p.o. daily. 12. Right lower extremity wound. wound care management. 13. Oral Thrush start Nystatin 5 mg PO QID. 14. We are going to manage the patient on a daily basis and make recommendation on a daily basis. Check CBC with diff CMP in AM. Discussed Condition with: Patient Koby Lopez MD November 20, 2016 08:33
[2016-11-20] MEDS: CALCIUM/VITAMIN D 250 MG/125 U TAB PO SCH (09:13)
[2016-11-20] MEDS: LISINOPRIL 20 MG TAB PO SCH (09:13)
[2016-11-20] MEDS: CETIRIZINE HCL 10 MG TAB PO SCH (09:13)
[2016-11-20] MEDS: FUROSEMIDE 40 MG/4 ML VIAL IV PUSH SCH (09:13)
[2016-11-20] MEDS: PANTOPRAZOLE SOD 40 MG DELAYED RELEASE TAB PO SCH ×2 (09:13→21:24)
[2016-11-20] MEDS: FOLIC ACID 1 MG TAB PO SCH (09:14)
[2016-11-20] MEDS: BUMETANIDE 1 MG TAB PO SCH (09:14)
[2016-11-20] MEDS: BUDESONIDE-FORMOTEROL 80/4.5 MCG INHALER INH SCH ×2 (09:24→21:25)
[2016-11-20] MEDS: LEVOFLOXACIN 500 MG PREMIX INJ 100 ML IV SCH (12:42)
[2016-11-20] MEDS ORDERED: PROMETHAZINE HCL 25 MG TAB PO PRN (12:45)
[2016-11-20] MEDS: ENOXAPARIN SODIUM 40 MG/0.4 ML SYRINGE SQ SCH (13:44)
[2016-11-20] MEDS: NYSTATIN SUSP 500,000 U/5 ML CUP SWISH-SWAL SCH ×3 (13:44→21:24)
[2016-11-20] MEDS: AZITHROMYCIN INJ 500 MG in SODIUM CHLOR 0.9% 250 ML INJ 250 ML IV SCH (13:48)
[2016-11-20] MEDS: RESP: ALBUTEROL 0.63 MG/3 ML NEB (PRN) NEB (15:34)
--- NOTE | 2016-11-20 19:24 | HHI.PR ---
Subjective Remarks 61 YOWFw ith COPD exac, Bronchitis Breathing better On 02 3LNC No fever Feels better family at BS Objective Vital Signs Vital Signs Date Time Temp Pulse Resp B/P Pulse Ox O2 Delivery O2 Flow Rate FiO2 11/20/16 19:05 94 Nasal Cannula 2.50 11/20/16 16:00 96.8 85 20 104/76 92 11/20/16 13:44 20 11/20/16 12:00 97.8 84 20 135/79 94 11/20/16 08:08 Nasal Cannula 2.00 11/20/16 08:00 97.9 84 20 146/74 94 11/20/16 07:49 96 Nasal Cannula 2.50 11/20/16 00:00 97.7 80 18 100/70 96 11/19/16 21:48 94 Nasal Cannula 2.00 11/19/16 20:00 97.8 86 18 107/77 96 I/O 11/19/16 11/19/16 11/19/16 11/20/16 11/20/16 11/20/16 07:00 15:00 23:00 07:00 15:00 23:00 Intake Total 0 ml 850 ml 50 ml 700 ml Output Total 2400 ml Balance 0 ml 850 ml 50 ml -1700 ml Intake Oral 850 ml 50 ml 700 ml IV Total 0 ml Output Urine Total 2400 ml # Voids 2 5 2 # Bowel Movements 0 Result Diagram: 11/20/16 0600 11/20/16 0600 Objective Remarks GENERAL: WBWN WF, mild sob SKIN: Warm and dry. HEAD: Normocephalic. EYES: No scleral icterus. No injection or drainage. NECK: Supple, trachea midline. No JVD or lymphadenopathy. CARDIOVASCULAR: Regular rate and rhythm without murmurs, gallops, or rubs. RESPIRATORY: Breath sounds equal bilaterally. No accessory muscle use. End exp rhonchi MUSCULOSKELETAL: No cyanosis, or edema. BACK: Nontender without obvious deformity. No CVA tenderness. A/P Assessment and Plan COPD Exac bronchial asthma Bronchitis DJD ch pain GERD PLAN: DC Solumedrol pred 10 mg tid Aerosol nebs Supplement 02 Acapella Change to PO abx DC plans for home Isrrael Potter MD November 20, 2016 19:24
[2016-11-20] MEDS: PRAVASTATIN SOD 40 MG TAB PO SCH (21:24)
[2016-11-21] VITALS (7 sets, daily range): BP systolic 101–140; BP diastolic 64–87; PULSE 68–98; RESP 18–21; TEMP 96.3–97.3; O2SAT 93–98
[2016-11-21] MEDS: ACETAMINOPHEN/HYDROcodone 325 MG/10 MG TAB PO PRN ×4 (00:49→21:51)
[2016-11-21] MEDS: RESP: ALBUTEROL 2.5 MG/IPRATROPIUM 0.5 MG NEB (SCH) NEB ×6 (03:51→23:13)
[2016-11-21 07:50] LABS: AUTOMATED NEUTROPHIL # 6.8 TH/MM3 (1.8-7.7); BASOPHIL # 0.2 TH/MM3 (0-0.2); EOSINOPHIL % 0.2 % (0.0-4.0); HEMATOCRIT 37.4 % (35.0-46.0); LYMPH % 14.1 % (9.0-44.0); LYMPHOCYTE # 1.3 TH/MM3 (1.0-4.8); MEAN CELL VOLUME 87.8 FL (80.0-100.0); MONO % 9.6 % (0.0-8.0); NEUT % 74.1 % (16.0-70.0); PLATELET COUNT 278 TH/MM3 (150-450); RED BLOOD COUNT 4.26 MIL/MM3 (4.00-5.30); RED CELL DISTRIBUTION WIDTH 14.4 % (11.6-17.2); WHITE BLOOD COUNT 9.2 TH/MM3 (4.0-11.0)
[2016-11-21 07:52] LABS: HEMO FLAGS DIFF FINAL
--- NOTE | 2016-11-21 07:59 | HHI.PR ---
Subjective History of Present Illness Patient SOB Cough and wheezing better . c/o Oral Thrush start Nystatin 5 mg PO QID. d/w NIKHIL. [place]. low potassium will replace. Review of Systems Constitutional Constitutional: Fatigue, Weakness Throat Throat Remarks oral thrush. Pulmonary Respiratory: Coughing, Shortness of Breath, Wheezing Cardiology CV Remarks leg edema. Integumentary Skin Remarks wound right lower extremity. Vitals/Results Intake & Output 11/20/16 11/20/16 11/21/16 15:00 23:00 07:00 Intake Total 700 ml 240 ml Output Total 2400 ml Balance -1700 ml 240 ml Intake Oral 700 ml 240 ml Output Urine Total 2400 ml # Voids 2 3 # Bowel Movements 1 Vital Signs Vital Signs Date Time Temp Pulse Resp B/P Pulse Ox O2 Delivery O2 Flow Rate FiO2 11/21/16 07:23 93 Nasal Cannula 2.50 11/21/16 01:49 18 11/21/16 00:00 96.3 86 18 110/65 98 11/20/16 20:00 92 Nasal Cannula 2.00 11/20/16 20:00 97.5 90 18 122/66 92 11/20/16 19:05 94 Nasal Cannula 2.50 11/20/16 16:00 96.8 85 20 104/76 92 11/20/16 12:00 97.8 84 20 135/79 94 11/20/16 08:08 Nasal Cannula 2.00 11/20/16 08:00 97.9 84 20 146/74 94 CBC/BMP: 11/21/16 0735 11/20/16 0600 Lab Results Laboratory Tests Test 11/21/16 07:35 White Blood Count 9.2 TH/MM3 Red Blood Count 4.26 MIL/MM3 Hemoglobin 12.4 GM/DL Hematocrit 37.4 % Mean Corpuscular Volume 87.8 FL Mean Corpuscular Hemoglobin 29.0 PG Mean Corpuscular Hemoglobin 33.0 % Concent Red Cell Distribution Width 14.4 % Platelet Count 278 TH/MM3 Mean Platelet Volume 7.9 FL Neutrophils (%) (Auto) 74.1 % Lymphocytes (%) (Auto) 14.1 % Monocytes (%) (Auto) 9.6 % Eosinophils (%) (Auto) 0.2 % Basophils (%) (Auto) 2.0 % Neutrophils # (Auto) 6.8 TH/MM3 Lymphocytes # (Auto) 1.3 TH/MM3 Monocytes # (Auto) 0.9 TH/MM3 Eosinophils # (Auto) 0.0 TH/MM3 Basophils # (Auto) 0.2 TH/MM3 CBC Comment DIFF FINAL Differential Comment Physical Exam General General Appearance: Well Developed, Well Nourished, No Acute Distress, Comfortable Eyes Eye Exam: Pupils Equal, Pupils Reactive, Sclera White, Extraocular Movement Intact Throat Throat Exam: Oral Mucosa [place] & Moist Throat Remarks Oral Thrush. Neck Neck Exam: Neck Supple, Trachea Midline Pulmonary Resp Remarks Bilateral wheezing. Cardiology CV Exam: Regular, Normal Sinus Rhythm Gastrointestinal/Abdomen GI Exam: Soft, Non-Tender, Bowel Sounds Present Musculoskeletal MS Exam: Normal Tone Integumentary Skin Exam: Warm, Dry Skin Remarks wound right lower extremity. Extremeties Extremities Exam: Pitting Edema Neurologic Neuro Exam: Alert, Awake, Oriented, Speech Clear, Moving All Extremities, No Focal Deficits VTE Prophylaxis VTE Prophylaxis Meds: Lovenox PUD Prophylasis PUD Prophylaxis: Protonix Assessment/Plan Assessment/Plan ASSESSMENT AND PLAN This is a 61-year-old female who came to the ER diagnosed with: 1. Shortness of breath secondary to COPD, asthma exacerbation. The patient is on Levaquin 500 mg IV daily and Zithromax 500 g IV Daily. and also Solu- Medrol 40 mg IV q.8h. and DuoNeb nebulization. Pulmonary input noted. Further recommendation per pulmonary. 2. History of hypertension. Continue home medications. 3. History of GERD. Protonix 40 mg p.o. daily. 4. History of leg edema. on Bumex 1 mg p.o. daily. continue with lasix 40 mg IV Daily.check venous doppler of lower extremity to r/o DVT. 5. Arthritis. Continue home medication. 6. History of COPD. Continue home medication. 7. History of hyperlipidemia. Continue Zocor 40 mg p.o. daily. 8. Hypokalemia. will replace. 9. Hyperglycemia. Will monitor blood sugar. The patient does not have any history of diabetes mellitus. checked hemoglobin A1c...7.1 10. DVT prophylaxis. Lovenox 40 mg subcutaneous daily. 11. GI prophylaxis. Protonix 40 mg p.o. daily. 12. Right lower extremity wound. wound care management. 13. Oral Thrush on Nystatin 5 mg PO QID. 14. We are going to manage the patient on a daily basis and make recommendation on a daily basis. Check CBC with diff CMP in AM. Discussed Condition with: Patient Koby Lopez MD November 21, 2016 07:59
[2016-11-21 08:04] LABS: CHLORIDE 98 MEQ/L (98-107); POTASSIUM 3.3 MEQ/L (3.5-5.1); SODIUM (NA) 143 MEQ/L (136-145)
[2016-11-21 08:08] LABS: ANION GAP 3 MEQ/L (5-15); BICARBONATE 41.7 MEQ/L (21.0-32.0); BLOOD UREA NITROGEN 25 MG/DL (7-18)
[2016-11-21 08:11] LABS: ALT (GPT) 32 U/L (10-53); AST (GOT) 17 U/L (15-37); GLOMERULAR FILTRATION RATE 64 ML/MIN (>89)
[2016-11-21 08:12] LABS: TOTAL BILIRUBIN ADULT 0.4 MG/DL (0.2-1.0)
[2016-11-21 08:14] LABS: ALKALINE PHOSPHATASE 43 U/L (45-117)
[2016-11-21] MEDS: FOLIC ACID 1 MG TAB PO SCH (10:20)
[2016-11-21] MEDS: predniSONE 10 MG TAB PO SCH ×3 (10:20→18:23)
[2016-11-21] MEDS: PANTOPRAZOLE SOD 40 MG DELAYED RELEASE TAB PO SCH ×2 (10:21→21:37)
[2016-11-21] MEDS: AZITHROMYCIN 250 MG TAB PO SCH (10:21)
[2016-11-21] MEDS: LISINOPRIL 20 MG TAB PO SCH (10:21)
[2016-11-21] MEDS: NYSTATIN SUSP 500,000 U/5 ML CUP SWISH-SWAL SCH ×4 (10:22→21:37)
[2016-11-21] MEDS: CALCIUM/VITAMIN D 250 MG/125 U TAB PO SCH (10:22)
[2016-11-21] MEDS: CETIRIZINE HCL 10 MG TAB PO SCH (10:22)
[2016-11-21] MEDS: FUROSEMIDE 40 MG/4 ML VIAL IV PUSH SCH (10:30)
[2016-11-21] MEDS: BUMETANIDE 1 MG TAB PO SCH (10:30)
[2016-11-21] MEDS: BUDESONIDE-FORMOTEROL 80/4.5 MCG INHALER INH SCH ×2 (10:31→21:37)
[2016-11-21] MEDS: ENOXAPARIN SODIUM 40 MG/0.4 ML SYRINGE SQ SCH (13:35)
[2016-11-21] MEDS ORDERED: POTASSIUM CHLORIDE 10 MEQ CONTROLLED RELEASE TAB PO ONE (13:45)
[2016-11-21] MEDS: PRAVASTATIN SOD 40 MG TAB PO SCH (21:37)
[2016-11-22] VITALS: BP 121/82; PULSE 84; RESP 20; TEMP 97; O2SAT 96
[2016-11-22] MEDS: RESP: ALBUTEROL 2.5 MG/IPRATROPIUM 0.5 MG NEB (SCH) NEB ×4 (04:00→15:12)
[2016-11-22] MEDS: ACETAMINOPHEN/HYDROcodone 325 MG/10 MG TAB PO PRN ×2 (04:55→11:17)
[2016-11-22 08:00] VITALS: BP 121/57; PULSE 70; RESP 22; TEMP 97; O2SAT 97
[2016-11-22 08:14] VITALS: O2SAT 98
[2016-11-22] MEDS: BUDESONIDE-FORMOTEROL 80/4.5 MCG INHALER INH SCH (09:00)
[2016-11-22] MEDS: BUMETANIDE 1 MG TAB PO SCH (09:49)
[2016-11-22] MEDS: FUROSEMIDE 40 MG/4 ML VIAL IV PUSH SCH (09:49)
[2016-11-22] MEDS: FOLIC ACID 1 MG TAB PO SCH (09:50)
[2016-11-22] MEDS: LISINOPRIL 20 MG TAB PO SCH (09:50)
[2016-11-22] MEDS: predniSONE 10 MG TAB PO SCH ×2 (09:50→16:15)
[2016-11-22] MEDS: CALCIUM/VITAMIN D 250 MG/125 U TAB PO SCH (09:50)
[2016-11-22] MEDS: NYSTATIN SUSP 500,000 U/5 ML CUP SWISH-SWAL SCH ×2 (09:51→16:15)
[2016-11-22] MEDS: CETIRIZINE HCL 10 MG TAB PO SCH (09:51)
[2016-11-22] MEDS: AZITHROMYCIN 250 MG TAB PO SCH (09:51)
[2016-11-22] MEDS: PANTOPRAZOLE SOD 40 MG DELAYED RELEASE TAB PO SCH (10:05)
[2016-11-22 12:00] VITALS: BP 121/71; PULSE 89; RESP 20; TEMP 96.9; O2SAT 95
--- NOTE | 2016-11-22 13:06 | HHI.PR ---
Subjective History of Present Illness Patient SOB Cough and wheezing better . c/o Oral Thrush start Nystatin 5 mg PO QID. d/w RN. Betsy. low potassium will replace. ok to DC Home today. Review of Systems Constitutional Constitutional: Fatigue, Weakness Throat Throat Remarks oral thrush. Pulmonary Respiratory: Coughing, Shortness of Breath, Wheezing Cardiology CV Remarks leg edema. Integumentary Skin Remarks wound right lower extremity. Vitals/Results Intake & Output 11/21/16 11/21/16 11/22/16 15:00 23:00 07:00 Intake Total 1270 ml 1630 ml 720 ml Balance 1270 ml 1630 ml 720 ml Intake Oral 1270 ml 1630 ml 720 ml # Voids 5 4 3 # Bowel Movements 1 0 0 Vital Signs Vital Signs Date Time Temp Pulse Resp B/P Pulse Ox O2 Delivery O2 Flow Rate FiO2 11/22/16 12:00 96.9 89 20 121/71 95 11/22/16 08:14 98 Nasal Cannula 2.50 11/22/16 08:00 97.0 70 22 121/57 97 11/22/16 00:00 97.0 84 20 121/82 96 11/21/16 20:00 94 Nasal Cannula 2.50 11/21/16 20:00 96.7 98 21 125/68 94 11/21/16 19:33 93 Nasal Cannula 2.50 11/21/16 16:00 96.4 76 20 101/64 94 11/21/16 15:04 18 CBC/BMP: 11/21/16 0735 11/21/16 0735 Physical Exam General General Appearance: Well Developed, Well Nourished, No Acute Distress, Comfortable Eyes Eye Exam: Pupils Equal, Pupils Reactive, Sclera White, Extraocular Movement Intact Throat Throat Exam: Oral Mucosa [place] & Moist Throat Remarks Oral Thrush. Neck Neck Exam: Neck Supple, Trachea Midline Pulmonary Resp Remarks Bilateral wheezing. Cardiology CV Exam: Regular, Normal Sinus Rhythm Gastrointestinal/Abdomen GI Exam: Soft, Non-Tender, Bowel Sounds Present Musculoskeletal MS Exam: Normal Tone Integumentary Skin Exam: Warm, Dry Skin Remarks wound right lower extremity. Extremeties Extremities Exam: Pitting Edema Neurologic Neuro Exam: Alert, Awake, Oriented, Speech Clear, Moving All Extremities, No Focal Deficits VTE Prophylaxis VTE Prophylaxis Meds: Lovenox PUD Prophylasis PUD Prophylaxis: Protonix Assessment/Plan Assessment/Plan ASSESSMENT AND PLAN This is a 61-year-old female who came to the ER diagnosed with: 1. Shortness of breath secondary to COPD, asthma exacerbation. The patient is on Levaquin 500 mg IV daily and Zithromax 500 g IV Daily. and also Solu- Medrol 40 mg IV q.8h. and DuoNeb nebulization. Pulmonary input noted. Further recommendation per pulmonary. 2. History of hypertension. Continue home medications. 3. History of GERD. Protonix 40 mg p.o. daily. 4. History of leg edema. on Bumex 1 mg p.o. daily. continue with lasix 40 mg IV Daily.check venous doppler of lower extremity to r/o DVT. 5. Arthritis. Continue home medication. 6. History of COPD. Continue home medication. 7. History of hyperlipidemia. Continue Zocor 40 mg p.o. daily. 8. Hypokalemia. will replace. 9. Hyperglycemia. Will monitor blood sugar. The patient does not have any history of diabetes mellitus. checked hemoglobin A1c...7.1 10. DVT prophylaxis. Lovenox 40 mg subcutaneous daily. 11. GI prophylaxis. Protonix 40 mg p.o. daily. 12. Right lower extremity wound. wound care management. 13. Oral Thrush on Nystatin 5 mg PO QID. ok to DC Home today. f/u with pcp/ pulmonary 1 week. Discussed Condition with: Patient Koby Lopez MD November 22, 2016 13:06
[2016-11-22] MEDS ORDERED: NYST1000 SWISH-SWAL (13:22)
[2016-11-22] MEDS ORDERED: PRED10 PO (13:22)
[2016-11-22] MEDS ORDERED: BENZ100 PO (13:22)
[2016-11-22] MEDS ORDERED: BUME1TAB25 PO (13:22)
[2016-11-22] MEDS ORDERED: PROM25TA5 PO (13:22)
[2016-11-22] MEDS ORDERED: AZIT250T3 PO (13:22)
[2016-11-22] MEDS: ENOXAPARIN SODIUM 40 MG/0.4 ML SYRINGE SQ SCH (14:00)
--- NOTE | 2016-11-22 14:49 | HHI.FF ---
Face to Face Verification Diagnosis: (1) Severe sepsis (2) Hyperlipidemia (3) Chronic pain syndrome (4) Leukocytosis (5) Chronic respiratory failure with hypoxia (6) Chronic obstructive pulmonary disease (7) Cellulitis of right lower extremity Physical Therapy Order: Evaluate and Treat, Strength and gait training Occupational Therapy Order: Evaluate and Treat, Gross motor coordination Home Health Nursing Order: Medical education Medication education-adverse effect I have seen patient Bethany Hu on 11/22/16. My clinical findings support the need for the requested home health care services because: Ltd mobility - disease progression Limited ability to care for self High risk of falls I certify that my clinical findings support that this patient is homebound because: Unsteady gait/balance Unsafe to leave home unassisted Unable to use public transportation Koby Lopez MD November 22, 2016 14:49
[2016-11-22] MEDS ORDERED: METF500T PO (15:20)
--- NOTE | 2016-11-22 17:38 | HHI.PR ---
Subjective Remarks 61 YOWFw ith COPD exac, Bronchitis Breathing better On 02 3LNC No fever Feels better Objective Vital Signs Vital Signs Date Time Temp Pulse Resp B/P Pulse Ox O2 Delivery O2 Flow Rate FiO2 11/22/16 12:00 96.9 89 20 121/71 95 11/22/16 08:14 98 Nasal Cannula 2.50 11/22/16 08:00 97.0 70 22 121/57 97 11/22/16 00:00 97.0 84 20 121/82 96 11/21/16 20:00 94 Nasal Cannula 2.50 11/21/16 20:00 96.7 98 21 125/68 94 11/21/16 19:33 93 Nasal Cannula 2.50 I/O 11/21/16 11/21/16 11/21/16 11/22/16 11/22/16 11/22/16 07:00 15:00 23:00 07:00 15:00 23:00 Intake Total 240 ml 1270 ml 1630 ml 720 ml 925 ml Balance 240 ml 1270 ml 1630 ml 720 ml 925 ml Intake Oral 240 ml 1270 ml 1630 ml 720 ml 925 ml # Voids 3 5 4 3 4 # Bowel Movements 1 1 0 0 Result Diagram: 11/21/16 0735 11/21/16 0735 Objective Remarks GENERAL: WBWN WF, mild sob SKIN: Warm and dry. HEAD: Normocephalic. EYES: No scleral icterus. No injection or drainage. NECK: Supple, trachea midline. No JVD or lymphadenopathy. CARDIOVASCULAR: Regular rate and rhythm without murmurs, gallops, or rubs. RESPIRATORY: Breath sounds equal bilaterally. No accessory muscle use. End exp rhonchi MUSCULOSKELETAL: No cyanosis, or edema. BACK: Nontender without obvious deformity. No CVA tenderness. A/P Assessment and Plan COPD Exac bronchial asthma Bronchitis DJD ch pain GERD PLAN: pred 10 mg tid Aerosol nebs Supplement 02 Acapella Change to PO abx She will FU with Dr.Ailani Potter,Isrrael Pascual MD November 22, 2016 17:38
--- NOTE | 2016-11-24 17:22 | MD ---
cc: KOBY LEONARD MD ADMISSION DATE: 11/19/2016 DISCHARGE DATE: 11/22/2016 Okay to discharge the patient home with home health care. Condition at the time of discharge satisfactory, activity as tolerated. Diet - cardiac diet. ALLERGY TO CODEINE. DISCHARGE MEDICATIONS 1. Zithromax 500 mg p.o. daily for 5 days. 2. 200 mg p.o. t.i.d. for 10 days. 3. Bumex 0.5 mg p.o. daily. 4. Nystatin 5 mL solution swallow four times a day. 5. Prednisone 10 mg t.i.d. for 7 days. 6. Promethazine 25 mg p.o. q.6 h. 7. Albuterol nebulization q. 6-hour 8. Biotin 5000 mcg daily. 9. Symbicort inhaler 2 puffs inhalation q. 12-hour. 10. Cetirizine 10 mg p.o. daily 11. Vitamin D with Vitamin C 2 capsules p.o. daily. 12. Folic acid 800 mcg p.o. daily 13. Furosemide 40 mg twice a day. 14. Hydrocodone acetaminophen 10/325 p.o. q.6 h pain. 15. DuoNeb one nebulization q.6 h. 16. 20 mg p.o. daily. 17. Lisinopril 20 mg p.o. daily, 18. Omeprazole 40 mg p.o. daily. 19. Promethazine 12.5 mg p.o. as directed p.r.n. nausea, vomiting. 20. Simvastatin 40 mg daily. ADMISSION DIAGNOSIS Shortness of breath secondary to asthma exacerbation. DISCHARGE DIAGNOSIS Shortness of breath improved, asthma exacerbation improved. OTHER COMORBIDITIES 1. History of hypertension, 2. Gastroesophageal reflux disease 3. History of leg edema and right leg wound 4. History of arthritis, 5. History of COPD, 6. History of hyperlipidemia. The patient had hypokalemia which was replaced during hospital stay 7. Hyperglycemia. Hemoglobin A1c was 7.1. The patient started on metformin 500 mg p.o. daily. 8. Oral thrush - the patient started on statin. HOSPITAL COURSE This is a 61-year old female admitted with shortness of breath diagnosed with COPD exacerbation. The patient was given Solu-Medrol IV. The patient also given DuoNeb nebulization. Pulmonary has seen the patient. Patient condition improved. The patient also got antibiotic during hospital stay. The patient discharged in satisfactory condition. Further details in the medical record. Koby Leonard MD EA/ /3:20 PM /5:10 PM
== END 2016-11-22 17:28 | disposition home health service (06) | DRG 191 ==
LOC: PHED 12:05 → PHEDA 15:03 → INTOOBSV 15:03 → PH3A 17:15 → OBSVTOIN 11-19 08:18
PROVIDERS: ADMIT Specialist; ATTEND Specialist
PROC: 3E0F7GC Introduction of Other Therapeutic Substance into Respiratory Tract, Via Natural or Artificial Opening (ICD-10-PCS; principal; 2016-11-16)
DX: J44.1 Chronic obstructive pulmonary disease with (acute) exacerbation (principal); J45.901 Unspecified asthma with (acute) exacerbation; Z99.81 Dependence on supplemental oxygen; B37.0 Candidal stomatitis; K21.9 Gastro-esophageal reflux disease without esophagitis; R60.9 Edema, unspecified; M19.90 Unspecified osteoarthritis, unspecified site; F32.9 Major depressive disorder, single episode, unspecified; I10 Essential (primary) hypertension; Z86.14 Personal history of Methicillin resistant Staphylococcus aureus infection; Z88.5 Allergy status to narcotic agent; S81.801D Unspecified open wound, right lower leg, subsequent encounter; Z82.49 Family history of ischemic heart disease and other diseases of the circulatory system; Z83.6 Family history of other diseases of the respiratory system; E78.5 Hyperlipidemia, unspecified; E87.6 Hypokalemia; R73.9 Hyperglycemia, unspecified; Z79.52 Long term (current) use of systemic steroids; Z87.891 Personal history of nicotine dependence; G89.29 Other chronic pain
CPT/HCPCS: 71010; 80048; 80053; 81001; 83036; 83735; 83880; 85025; 93005; 93970; 94640; 94664; 94667; 94668; 96374; G0378; J0456; J1650; J1940; J1956; J2920; J2930; J7050; J7512; J7613; Q0169